=== PATIENT | female | born 1950 | race Two or more races ===

== ENCOUNTER 2022-07-20 09:13 | Inpatient (IN) | payer BC ==
[~2022-07-20] VITALS: Ht 162.6 cm; Wt 79.8 kg
[2022-07-20] VITALS (13 sets, daily range): BP systolic 94–137; BP diastolic 49–66
--- NOTE | 2022-07-20 09:16 | NUR ---
TO ER BED 5, [id number] FROM SNF, FOR NOTED DECREASE LOC AND LOW BP, AAOX1, BREATHING EVEN AND NON LABORED, G TUBE, TRACH CONNECTED TO VENT SETTING AC400, 40% FIO2, PEEP OF 5, CONNECTED TO MONITOR
[2022-07-20] MEDS ORDERED: PIPERACILLIN /TAZOBACTAM 3.375 G in IV D5W 50 ML IV ONE (09:30)
[2022-07-20] MEDS ORDERED: VANCOMYCIN 1 GM in IV D5W 250 ML IV ONE (09:30)
[2022-07-20] MEDS ORDERED: IV NS 0.9% 1,000 ML BAG IV ONE (09:30)
[2022-07-20 09:41] LABS: BASOPHILS % (AUTO) 0.1 % (0.0-2.0); EOSINOPHILS % (AUTO) 0.3 % (0.0-6.0); HEMATOCRIT 24 % (33-45); HEMOGLOBIN 7.6 g/dL (11.5-14.8); LYMPHOCYTES # (AUTO) 1.3 K/uL (0.8-4.8); MEAN CORPUSCULAR HGB CONC 32 g/dl (31.0-36.0); MEAN CORPUSCULAR VOLUME 99 fL (82-100); MONOCYTES # (AUTO) 2.3 K/uL (0.1-1.30); MONOCYTES % (AUTO) 8.4 % (2.0-12.0); NEUTROPHILS # (AUTO) 23.3 K/uL (1.8-8.9); NEUTROPHILS % (AUTO) 86.2 % (43.0-81.0); PLATELET COUNT (AUTO) 225 K/uL (150-450); RED BLOOD CELL COUNT(AUTO) 2.37 MIL/uL (4.0-5.2)
[2022-07-20] MEDS ORDERED: CHLO473M3 MM (09:46)
[2022-07-20] MEDS ORDERED: MAGN400O6 GT (09:46)
[2022-07-20] MEDS ORDERED: NA P133E RC (09:46)
[2022-07-20] MEDS ORDERED: ACET325T53 GT (09:46)
[2022-07-20] MEDS ORDERED: MULT-439 GT (09:46)
[2022-07-20] MEDS ORDERED: ATEN25TA GT (09:46)
[2022-07-20] MEDS ORDERED: ASCO500C17 GT (09:46)
[2022-07-20] MEDS ORDERED: APIX5TAB GT (09:46)
[2022-07-20] MEDS ORDERED: VORI200T4 GT (09:46)
[2022-07-20] MEDS ORDERED: RUXOLITINIB GT (09:46)
[2022-07-20] MEDS ORDERED: ERGOCALCIFEROL GT (09:46)
[2022-07-20] MEDS ORDERED: CHOL200013 GT (09:46)
[2022-07-20] MEDS ORDERED: CLON0.5T4 GT (09:46)
[2022-07-20] MEDS ORDERED: IPRA12.9 IH (09:46)
[2022-07-20] MEDS ORDERED: OMEP20TA5 GT (09:46)
[2022-07-20] MEDS ORDERED: DOCU-141 GT (09:46)
[2022-07-20] MEDS ORDERED: BISA10SU11 RC (09:46)
[2022-07-20] MEDS ORDERED: CRAN3875 GT (09:46)
[2022-07-20] MEDS ORDERED: QUET25TA GT (09:46)
[2022-07-20] MEDS ORDERED: FERR325T23 GT (09:46)
[2022-07-20 09:57] LABS: CALCIUM, SERUM 8.9 mg/dL (8.5-10.1); CARBON DIOXIDE 29 mmol/L (21-32); CHLORIDE 97 mmol/L (98-107); CREATININE 2.2 mg/dL (0.6-1.3); GLUCOSE 187 mg/dL (74-106); POTASSIUM 5.1 mmol/L (3.5-5.1); SODIUM SERUM 134 mmol/L (136-145)
--- NOTE | 2022-07-20 10:01 | NUR ---
COVID SWAB DONE AND SENT TO LAB
[2022-07-20 10:04] LABS: ALANINE AMINOTRANSFERASE 58 U/L (12-78); ALBUMIN 1.8 g/dL (3.4-5.0); ALKALINE PHOSPHATASE 488 U/L (46-116); ASPARTATE AMINOTRANSFERASE 20 U/L (15-37); BILIRUBIN,DIRECT 0.8 mg/dL (0.0-0.2); TOTAL PROTEIN, SERUM 6.9 g/dL (6.4-8.2)
[2022-07-20 10:06] LABS: UREA NITROGEN, BLOOD 100 mg/dL (7-18)
--- NOTE | 2022-07-20 10:37 | NUR ---
JARED SAUCEDO OF [facility] [phone] WILL FIND A BED AND WILL GIVE [facility] A CALL
[2022-07-20 10:55] LABS: BILIRUBIN,URINE SMALL (NEGATIVE); COLOR,URINE YELLOW (YELLOW); LEUKOCYTE ESTERASE ,URINE TRACE (NEGATIVE); NITRITE, URINE NEGATIVE (NEGATIVE); PH,URINE 5.5 (5.0-8.0); PROTEIN,URINE 100 mg/dl (NEGATIVE); UGLUCOSE NEGATIVE (NEGATIVE)
[2022-07-20] MEDS ORDERED: BISACODYL SUPP (10 MG) 10 MG/SUPP.RECT SUPP.RECT RC PRN (11:00)
[2022-07-20] MEDS ORDERED: MAGNESIUM HYDROXIDE 30 ML UDC GT PRN (11:00)
[2022-07-20] MEDS ORDERED: NA PHOS,M-B/NA PHOS,DI-BA 1 EA ENEMA RC PRN (11:00)
[2022-07-20] MEDS ORDERED: RUXOLITINIB PHOSPHATE GT SCH (11:00)
[2022-07-20] MEDS ORDERED: ONDANSETRON HCL/PF 4 MG/2 ML VIAL IVP PRN (11:00)
[2022-07-20] MEDS ORDERED: DEXTROSE 50%-WATER 50 ML DISP.SYRIN IV PRN (11:00)
[2022-07-20] MEDS ORDERED: Z GUARD REMEDY 4 OZ OINT TP PRN (11:00)
[2022-07-20] MEDS ORDERED: MAGNESIUM HYDROXIDE 30 ML UDC PO PRN (11:00)
[2022-07-20 11:17] LABS: BACTERIA,URINE 2+ /HPF (None Seen)
--- NOTE | 2022-07-20 11:17 | NUR ---
AUTHORIZATION GIVEN BY INSURANCE COMPANY FOR PATIENT TO STAY HERE
[2022-07-20] MEDS: BLOOD SUGAR DIAGNOSTIC 1 EACH STRIP IN SCH ×2 (12:00→17:44)
[2022-07-20] MEDS: NOREPINEPHRINE 8 MG in IV NS 0.9% 242 ML IV PRN ×2 (12:30→14:53)
[2022-07-20] MEDS: IV NS 0.9% 1,000 ML IV PRN ×2 (12:40→22:51)
--- NOTE | 2022-07-20 12:46 | NUR ---
ROOM 263
--- NOTE | 2022-07-20 13:13 | NUR ---
REPORT GIVEN TO AMELIA REBOLLEDO FOR COURTNEY
--- NOTE | 2022-07-20 13:40 | NUR ---
TRANSFERRED TO BED 263 IN STABLE CONDITION
[2022-07-20] MEDS: CEFEPIME 2 GM in IV D5W 100 ML IV SCH (14:57)
[2022-07-20] MEDS: CHLORHEXIDINE GLUCONATE 15 ML UDC MM SCH (17:44)
--- NOTE | 2022-07-20 19:15 | NUR ---
GRANULATING MACHINE OPERATOR OPENING NOTE RECEIVED PATIENT IN BED AWAKE, NON VERBAL. ON MECHANICAL VENT, TOLERATING SETTINGS WELL, NO S/S OF RESP DISTRESS, BEDSIDE MONITOR SHOW SR HR IN THE 90'S. IV ACCESS ON RIGHT AND LEFT AC, LAC IN RUNNING NS @75ML/HR. BOTH INTACT AND PATENT, PT HAS MONTEJO CATHETER DRAINING CLEAR YELLOW URINE.SAFETY MEASURE IMPLEMENT BED IN LOW POSITION AND LOCKED,HEAD OF THE BED ELEVATED,BED ALARM IS ON, WILL CONTINUE TO MONITOR.
[2022-07-20] MEDS: ACETAMINOPHEN 650 MG/SUPP.RECT RC PRN (19:59)
[2022-07-20] MEDS ORDERED: VORICONAZOLE 200 MG TABLET GT SCH (21:00)
[2022-07-20] MEDS ORDERED: CEFEPIME 1 GM in IV D5W 50 ML IV SCH (21:00)
[2022-07-20] MEDS: clonazePAM 0.5 MG TABLET GT SCH (21:05)
[2022-07-20] MEDS: QUETIAPINE FUMARATE 25 MG TABLET GT SCH (21:05)
[2022-07-21] VITALS (74 sets, daily range): BP systolic 78–153; BP diastolic 27–85
[2022-07-21] MEDS: BLOOD SUGAR DIAGNOSTIC 1 EACH STRIP IN SCH ×4 (00:05→18:16)
[2022-07-21] MEDS: INSULIN REGULAR, HUMAN 100 UNIT/ML 3 ML VIAL SQ PRN ×4 (00:06→18:30)
--- NOTE | 2022-07-21 04:15 | NUR ---
DIRECTOR OF MUSIC NOTE PATIENT STILL HAS A TEMP AFTER PREVIOUS TYLENOL AND ICE PACKS USED. IMPLEMENTING COOLING BLANKET.
[2022-07-21 04:56] LABS: BASOPHILS % (AUTO) 0.1 % (0.0-2.0); EOSINOPHILS % (AUTO) 0.5 % (0.0-6.0); HEMATOCRIT 24 % (33-45); HEMOGLOBIN 7.7 g/dL (11.5-14.8); LYMPHOCYTES # (AUTO) 2.4 K/uL (0.8-4.8); LYMPHOCYTES % (AUTO) 6.3 % (20.0-44.0); MEAN CORPUSCULAR HGB CONC 32 g/dl (31.0-36.0); MEAN CORPUSCULAR VOLUME 101 fL (82-100); MONOCYTES # (AUTO) 3.2 K/uL (0.1-1.30); MONOCYTES % (AUTO) 8.3 % (2.0-12.0); NEUTROPHILS # (AUTO) 32.3 K/uL (1.8-8.9); NEUTROPHILS % (AUTO) 84.8 % (43.0-81.0); PLATELET COUNT (AUTO) 278 K/uL (150-450); RED BLOOD CELL COUNT(AUTO) 2.37 MIL/uL (4.0-5.2)
[2022-07-21 05:13] LABS: CALCIUM, SERUM 8.5 mg/dL (8.5-10.1); CARBON DIOXIDE 26 mmol/L (21-32); CHLORIDE 104 mmol/L (98-107); CREATININE 1.4 mg/dL (0.6-1.3); GLUCOSE 104 mg/dL (74-106); MAGNESIUM 2.3 mg/dL (1.8-2.4); PHOSPHORUS 1.9 mg/dL (2.5-4.9); POTASSIUM 4.3 mmol/L (3.5-5.1); SODIUM SERUM 138 mmol/L (136-145); UREA NITROGEN, BLOOD 72 mg/dL (7-18)
[2022-07-21 05:14] LABS: WHITE BLOOD COUNT (AUTO) 38.1 K/uL (4.3-11.0)
[2022-07-21 05:46] LABS: THYROID STIMULATING HORMONE 29.246 uIU/mL (0.358-3.74)
[2022-07-21 05:53] LABS: BASOPHILS % (MANUAL) 0 % (0.0-2.0); EOSINOPHILS % (MANUAL) 0 % (0-4); LYMPHOCYTES % (MANUAL) 5 % (16-48); MONOCYTES % (MANUAL) 9 % (0-11.0); NEUTROPHILS % (MANUAL) 86 (42-76)
--- NOTE | 2022-07-21 06:55 | NUR ---
MODERN GREEK STUDIES PROFESSOR CLOSING NOTE PATIENT IN BED ASLEEP, NON VERBAL. ON MECHANICAL VENT, TOLERATING SETTINGS WELL, NO S/S OF RESP DISTRESS, BEDISDE MONITOR SHOW SR HR IN THE 90'S. IV ACCESS ON RIGHT WRIST AND LEFT AC, LAC IN RUNNING LEVOPHED @ 0.1MCG/KG/HR . BP IS 120/68. BOTH INTACT AND PATENT. PATIENT ALSO HAS CAROLE MIDLINE RUNNING NS@75ML/HR. PT HAS MONTEJO CATHETER DRAINING CLEAR YELLOW URINE. PATIENT HAS COOLING BLANKET, CURRENT RECTAL TEMP IS 101.6.SAFETY MEASURE IMPLEMENT BED IN LOW POSITION AND LOCKED,HEAD OF THE BED ELEVATED,BED ALARM IS ON, WILL ENDORSE TO MORNING NURSE.
[2022-07-21] MEDS: HYDROCORTISONE SOD SUCCINATE 100 MG/2 ML VIAL IV SCH ×3 (08:12→20:34)
[2022-07-21] MEDS: clonazePAM 0.5 MG TABLET GT SCH ×2 (08:14→20:34)
[2022-07-21] MEDS: PANTOPRAZOLE 40 MG VIAL IV SCH (08:14)
[2022-07-21] MEDS: DOCUSATE SODIUM 100 MG CAPSULE PO SCH (08:14)
[2022-07-21] MEDS: CHOLECALCIFEROL 1,000 UNIT TABLET (VIT D3) GT SCH (08:15)
[2022-07-21] MEDS: QUETIAPINE FUMARATE 25 MG TABLET GT SCH ×2 (08:15→21:30)
[2022-07-21] MEDS: ASCORBIC ACID 500 MG TABLET GT SCH (08:15)
[2022-07-21] MEDS: CHLORHEXIDINE GLUCONATE 15 ML UDC MM SCH ×2 (08:16→18:17)
[2022-07-21] MEDS: ACETAMINOPHEN 650 MG/SUPP.RECT RC PRN (08:18)
[2022-07-21] MEDS ORDERED: FERROUS SULFATE (325 MG) 325 MG/TAB TABLET GT SCH (09:00)
[2022-07-21] MEDS ORDERED: MULTIVITAMINS,THERAGRAN 1 UDTAB TABLET GT SCH (09:00)
[2022-07-21] MEDS: VANCOMYCIN 1 GM in IV D5W 250 ML IV SCH (09:50)
[2022-07-21] MEDS ORDERED: NEUTRA PHOS 1 POWD.PACKET GT ONE (11:00)
--- NOTE | 2022-07-21 11:10 | NUR ---
DAMARIS SEEN PT AND WAS NOTIFIED OF THE FEVER , NO ORDER NOTED AT THIS TIME.
[2022-07-21] MEDS: JEVITY 1.2 CAL 1,000 ML BOTTLE PEG PRN (11:31)
--- NOTE | 2022-07-21 12:13 | NUR ---
JOLLY RODRÍGUEZ Addendum: 07/21/22 at 1213 by KRISTINA COE RT Amended: Links added.
[2022-07-21] MEDS: IV NS 0.9% 1,000 ML IV PRN (12:38)
[2022-07-21 12:51] LABS: THYROID STIMULATING HORMONE 32.318 uIU/mL (0.358-3.74)
[2022-07-21] MEDS: ENOXAPARIN SODIUM 30 MG/0.3 ML DISP.SYRIN SQ SCH (13:10)
[2022-07-21] MEDS: CEFEPIME 2 GM in IV D5W 100 ML IV SCH (14:08)
[2022-07-21] MEDS: NOREPINEPHRINE 8 MG in IV NS 0.9% 242 ML IV PRN (14:10)
--- NOTE | 2022-07-21 17:05 | NUR ---
PT. NO SIGNIFICANT CHANGES NOTED AT THIS TIME; ALL NEEDS ATTENDED; BEDSIDE REPORT GIVEN TO SAVANA-SHERYL FOR CONTINUITY OF CARE.
--- NOTE | 2022-07-21 19:15 | NUR ---
PEARL TECHNICIAN RCD PT W/DX SEPSIS; PT IS AWAKE ON SUPINE POSITION TURNED OFF LEVOPHED WHICH WAS RUNNING @ 0.06 MCG/KG/MIN THRU PERIPHERAL IV; IV SITE LOOKS RED. MIDLINE FLUSHES NO BLOOD RETURN. REPLACED TRACH GAUZE WHICH HAD DRY BROWN SPUTUM.
--- NOTE | 2022-07-21 19:15 | NUR ---
RN/ICU PT RESTING IN BED NO LONGER HYPERTHERMIC 98.7. VITAL WNL. ON LEVO 0.04 BP KEPT AT ORDERED LEVEL. CHRONIC VENT TRACH, SUCTIONING PERFORMED NO OVER BREATHER OF THE VENTILATOR. NO S/S OF DISTRESS WHEN I LEFT THE ROOM. BED LOCKED HOB ELEVATED TO 20 DEGREES. Addendum: 07/21/22 at 2025 by CARLA DARDEN RN JEVITY @ 40 ML/HR WILL INCREASE TO 55 ML @ 2330 IF PT TOLERATES WELL
[2022-07-22] VITALS (30 sets, daily range): BP systolic 89–139; BP diastolic 56–79
[2022-07-22] MEDS: BLOOD SUGAR DIAGNOSTIC 1 EACH STRIP IN SCH ×5 (00:06→23:44)
[2022-07-22] MEDS: INSULIN REGULAR, HUMAN 100 UNIT/ML 3 ML VIAL SQ PRN ×5 (00:08→23:43)
--- NOTE | 2022-07-22 01:15 | NUR ---
WORKFLOW DEVELOPER STOOL COLLECTED FOR OB AND CALLED LAB FOR SCIENTIST ELECTRONICS.
[2022-07-22] MEDS: IV NS 0.9% 1,000 ML IV PRN ×2 (01:25→17:16)
[2022-07-22 03:08] LABS: OCCULT BLOOD STOOL NEGATIVE (NEGATIVE)
[2022-07-22] MEDS: HYDROCORTISONE SOD SUCCINATE 100 MG/2 ML VIAL IV SCH (04:51)
[2022-07-22 04:57] LABS: BASOPHILS % (AUTO) 0.1 % (0.0-2.0); EOSINOPHILS % (AUTO) 0.1 % (0.0-6.0); HEMATOCRIT 21 % (33-45); LYMPHOCYTES # (AUTO) 1.2 K/uL (0.8-4.8); LYMPHOCYTES % (AUTO) 4.2 % (20.0-44.0); MEAN CORPUSCULAR HGB CONC 31 g/dl (31.0-36.0); MEAN CORPUSCULAR VOLUME 102 fL (82-100); MONOCYTES # (AUTO) 1.5 K/uL (0.1-1.30); MONOCYTES % (AUTO) 5.5 % (2.0-12.0); NEUTROPHILS # (AUTO) 25.2 K/uL (1.8-8.9); NEUTROPHILS % (AUTO) 90.1 % (43.0-81.0); PLATELET COUNT (AUTO) 222 K/uL (150-450); RED BLOOD CELL COUNT(AUTO) 2.03 MIL/uL (4.0-5.2); WHITE BLOOD COUNT (AUTO) 27.9 K/uL (4.3-11.0)
[2022-07-22 05:02] LABS: HEMOGLOBIN 6.4 g/dL (11.5-14.8)
[2022-07-22 05:14] LABS: BAND % (MANUAL) 2 % (0.0-5.0); LYMPHOCYTES % (MANUAL) 7 % (16-48)
[2022-07-22 05:15] LABS: MONOCYTES % (MANUAL) 3 % (0-11.0); NEUTROPHILS % (MANUAL) 88 (42-76)
[2022-07-22 05:26] LABS: BILIRUBIN,TOTAL 0.4 mg/dL (0.2-1.0); CALCIUM, SERUM 7.7 mg/dL (8.5-10.1); CREATININE 0.9 mg/dL (0.6-1.3); MAGNESIUM 2.1 mg/dL (1.8-2.4); PHOSPHORUS 3.2 mg/dL (2.5-4.9); POTASSIUM 3.7 mmol/L (3.5-5.1); TOTAL PROTEIN, SERUM 6.1 g/dL (6.4-8.2)
[2022-07-22 05:31] LABS: ALBUMIN 1.4 g/dL (3.4-5.0)
--- NOTE | 2022-07-22 07:23 | NUR ---
WOUND CARE CONSULT: PT PRESENTS WITH SACRAL DEEP TISSUE INJURY WITH SCARRING, PRESENT ON ADMISSION. RECOMMENDATIONS MADE FOR SKIN PROTECTION.DISCUSSED WITH NURSING STAFF. DR GONZALES TO BE NOTIFIED OF SURGICAL CONSULT REQUEST THIS AM. FIRST ST[facility] IS ON ORDER. IN AGREEMENT WITH PLAN OF CARE. Addendum: 07/22/22 at 0724 by HERI FERNANDEZ WNDNU Amended: Links added.
--- NOTE | 2022-07-22 07:30 | NUR ---
RN NOTES PT FOUND SEMI FOWLERS DISPLAYING NO S/S OF DISTRESS, FLACC = 0 AND BILATERAL RISE AND FALL OF THE CHEST OBSERVED. R UA ML IS PATIENT AND INTACT. PEG DRESSING IS CLEAN AND DRY. MONTEJO CATH RESERVOIR BELOW PATIENT DRAINING BY GRAVITY. PT HAD BM, LOOSE, LIGHT BROWN IN COLOR, PT CLEANED. RN WILL CONTINUE CARE PLAN AND ANTICIPATE NEEDS. SAFETY MEASURES IN PLACE, BED LOCKED AND IN LOWEST POSITION, SIDE RAILS UPX2, CALL LIGHT WITHIN REACH, BED LOCKED AND IN LOWEST POSITION, SIDE RAILS UPX3, CALL LIGHT WITHIN REACH, BED ALARM ARMED.
[2022-07-22] MEDS: DOCUSATE SODIUM 100 MG CAPSULE PO SCH (08:47)
[2022-07-22] MEDS: ENOXAPARIN SODIUM 30 MG/0.3 ML DISP.SYRIN SQ SCH (09:00)
--- NOTE | 2022-07-22 09:00 | NUR ---
NURSES NOTES LOVENOX AND COLACE NOT GIVEN. LOVENOX NOT GIVEN BECAUSE PT HBG IS 6.4. COLACE NOT GIVEN BECAUSE PT HAS ACTIVE DIARRHEA.
[2022-07-22] MEDS: MULTIVITAMINS,THERAGRAN 1 UDTAB TABLET GT SCH (09:09)
[2022-07-22] MEDS: clonazePAM 0.5 MG TABLET GT SCH ×2 (09:09→20:24)
[2022-07-22] MEDS: PANTOPRAZOLE 40 MG VIAL IV SCH (09:09)
[2022-07-22] MEDS: ASCORBIC ACID 500 MG TABLET GT SCH (09:09)
[2022-07-22] MEDS: CHOLECALCIFEROL 1,000 UNIT TABLET (VIT D3) GT SCH (09:09)
[2022-07-22] MEDS: CHLORHEXIDINE GLUCONATE 15 ML UDC MM SCH ×2 (09:09→17:03)
[2022-07-22] MEDS: QUETIAPINE FUMARATE 25 MG TABLET GT SCH ×2 (09:09→20:23)
[2022-07-22] MEDS: VANCOMYCIN 1 GM in IV D5W 250 ML IV SCH (10:08)
[2022-07-22] MEDS: CEFEPIME 2 GM in IV D5W 100 ML IV SCH ×2 (11:22→20:23)
[2022-07-22] MEDS: JEVITY 1.2 CAL 1,000 ML BOTTLE PEG PRN (13:50)
[2022-07-22] MEDS: LEVOTHYROXINE SODIUM 75 MCG TABLET GT SCH (13:53)
[2022-07-22] MEDS ORDERED: SOD FERRIC GLUC 125 MG in IV NS 0.9% 100 ML IV SCH (14:00)
--- NOTE | 2022-07-22 17:50 | NUR ---
PATIENT TRANSFER PT DOWNGRADED TO TELE, RN GAVE REPORT TO NURSE FOLLOWING PATIENT TO KATY/TELE UNIT, SHERYL GAVIN. CN AND RT ACCOMPANIED PT DOWNSTAIRS. BELONGINGS REVIEWED AND CHECKED. RX AND CHART TRANSPORTED W/ PATIENT. PT ENDORSED IN STABLE CONDITION FOR COURTNEY.
--- NOTE | 2022-07-22 17:51 | NUR ---
RN NOTE TRANSFER PT IS STABLE AT THIS TIME AND HAS BEEN DOWNGRADED TO KATY/TELE #[id number]. REPORT RECEIVED FROM SHERYL RIOJAS. PT TRANSFERRED WITH ALL BELONGINGS AND MEDICATIONS. WILL CONTINUE TO MONITOR THIS SHIFT.
--- NOTE | 2022-07-22 18:55 | NUR ---
RN CLOSING NOTE PT IS IN BED ON MECHANICAL VENTILATOR WITH ALL PRESCRIBED SETTINGS TOLERATING WELL O2 SAT 99%. PT IS A/OX2 [place] SPEAKING ONLY. GTUBE IS IN PLACE WITH POSITIVE PLACEMENT INFUSING WITH JEVITY 1.2 @55ML/HR. FC IS IN PLACE DRAINING URINE TO GRAVITY PT ALSO HAS FLEXISEAL IN PLACE. IV ACCESS R UA MIDLINE MIDLINE INFUSING WITH NS @75ML/HR. BED IS LOCKED IN LOWEST POSITION X2 BED RAILS UP AND ALL HOSPITAL SAFETY MEASURES ARE IN PLACE. WILL ENDORSE TO HEALTH PLAN ADVISOR NURSE FOR COURTNEY.
--- NOTE | 2022-07-22 19:40 | NUR ---
RN OPENING NOTES RECEIVED CARE OF PATIENT FROM AM NURSE, PATIENT IS AWAKE, NONVERBAL, RESPONDS TO NAME WITH FACIAL AND HAND GESTURES, RWANDAN SPEAKING. NO PAIN OR DISCOMFORT EXPRESSED USING FLACC SCALE. PATIENT IS NOTED WITH TRACH, ON MECHANICAL VENTILATION WITH ORDERED SETTINGS, NO SOB NOTED, NO RESPIRATORY DISTRESS NOTED. PATIENT IS NOTED WITH GTUBE, RUNNING WITH JEVITY 1.2 @55 ML/HR, NO RESIDUAL NOTED. PATIENT NOTED WITH MONTEJO CATH, DRAINING YELLOW URINE TO GRAVITY, RECTAL RUBE FLEXISEAL IN PLACE. IV ACCESS R UA MIDLINE MIDLINE INFUSING WITH NS @75ML/HR. SAFETY MEASURES IMPLEMENTED PER HOSPITAL PROTOCOLS, BED IS LOCKED IN LOWEST POSITION, X2 BED RAILS UP. WILL CONTINUE TO MONITOR PATIENT AND CARRY OUT PLAN OF CARE.
[2022-07-22] MEDS: MUPIROCIN OINT 2% 22 GM TUBE NS SCH (20:23)
[2022-07-23] VITALS (7 sets, daily range): BP systolic 120–176; BP diastolic 72–112
[2022-07-23] MEDS: BLOOD SUGAR DIAGNOSTIC 1 EACH STRIP IN SCH ×3 (06:31→17:29)
[2022-07-23] MEDS: INSULIN REGULAR, HUMAN 100 UNIT/ML 3 ML VIAL SQ PRN ×3 (06:32→17:30)
[2022-07-23] MEDS: IV NS 0.9% 1,000 ML IV PRN ×2 (07:01→18:01)
--- NOTE | 2022-07-23 07:25 | NUR ---
RN OPENING NOTES PATIENT IS AWAKE, NONVERBAL, RESPONDS TO NAME WITH FACIAL AND HAND GESTURES. NO PAIN OR DISCOMFORT EXPRESSED USING FLACC SCALE. PATIENT IS NOTED WITH TRACH, ON MECHANICAL VENTILATION WITH ORDERED SETTINGS, NO SOB NOTED, NO RESPIRATORY DISTRESS NOTED. PATIENT IS NOTED WITH GTUBE, RUNNING WITH JEVITY 1.2 @55 ML/HR. PATIENT NOTED WITH MONTEJO CATH, DRAINING YELLOW URINE TO GRAVITY, RECTAL RUBE FLEXISEAL IN PLACE. IV ACCESS R UA MIDLINE MIDLINE INFUSING WITH NS @75ML/HR. SAFETY MEASURES IMPLEMENTED PER HOSPITAL PROTOCOLS, BED IS LOCKED IN LOWEST POSITION, X2 BED RAILS UP.
--- NOTE | 2022-07-23 07:25 | NUR ---
RN CLOSING NOTES ENDORSED CARE OF PATIENT TO AM NURSE. NO SIGNIFICANT FINDINGS OR CHANGES TO PATIENT'S CONDITION THROUGHOUT SHIFT. ALL DUE MEDS GIVEN, PLAN OF CARE FOLLOWED. SAFETY MEASURES KEPT IN PLACE PER HOSPITAL PROTOCOLS. ENDORSED CARE OF PATIENT TO AM NURSE FOR COURTNEY.
[2022-07-23 07:32] LABS: CALCIUM, SERUM 8.2 mg/dL (8.5-10.1); CREATININE 0.8 mg/dL (0.6-1.3)
[2022-07-23 08:49] LABS: BASOPHILS # (AUTO) 0.1 K/uL (0.0-0.2); BASOPHILS % (AUTO) 0.3 % (0.0-2.0); EOSINOPHILS % (AUTO) 0.3 % (0.0-6.0); HEMATOCRIT 29 % (33-45); HEMOGLOBIN 9.1 g/dL (11.5-14.8); LYMPHOCYTES # (AUTO) 1.8 K/uL (0.8-4.8); LYMPHOCYTES % (AUTO) 5.8 % (20.0-44.0); MEAN CORPUSCULAR HGB CONC 31 g/dl (31.0-36.0); MEAN CORPUSCULAR VOLUME 100 fL (82-100); MONOCYTES # (AUTO) 1.4 K/uL (0.1-1.30); MONOCYTES % (AUTO) 4.5 % (2.0-12.0); NEUTROPHILS # (AUTO) 28.2 K/uL (1.8-8.9); NEUTROPHILS % (AUTO) 89.1 % (43.0-81.0); PLATELET COUNT (AUTO) 344 K/uL (150-450); RED BLOOD CELL COUNT(AUTO) 2.93 MIL/uL (4.0-5.2)
[2022-07-23 09:05] LABS: WHITE BLOOD COUNT (AUTO) 31.6 K/uL (4.3-11.0)
[2022-07-23] MEDS: PANTOPRAZOLE 40 MG/PACK PACK GT SCH (09:18)
[2022-07-23] MEDS: CHLORHEXIDINE GLUCONATE 15 ML UDC MM SCH ×2 (09:18→17:29)
[2022-07-23] MEDS: CEFEPIME 2 GM in IV D5W 100 ML IV SCH ×2 (09:18→20:15)
[2022-07-23] MEDS: LEVOTHYROXINE SODIUM 75 MCG TABLET GT SCH (09:18)
[2022-07-23] MEDS: MUPIROCIN OINT 2% 22 GM TUBE NS SCH ×2 (09:19→21:05)
[2022-07-23] MEDS: ASCORBIC ACID 500 MG TABLET GT SCH (09:19)
[2022-07-23] MEDS: DOCUSATE SODIUM 100 MG CAPSULE PO SCH (09:19)
[2022-07-23] MEDS: MULTIVITAMINS,THERAGRAN 1 UDTAB TABLET GT SCH (09:19)
[2022-07-23] MEDS: CHOLECALCIFEROL 1,000 UNIT TABLET (VIT D3) GT SCH (09:19)
[2022-07-23] MEDS: clonazePAM 0.5 MG TABLET GT SCH ×2 (09:19→20:08)
[2022-07-23] MEDS: QUETIAPINE FUMARATE 25 MG TABLET GT SCH ×2 (09:19→20:08)
[2022-07-23] MEDS: VANCOMYCIN 1 GM in IV D5W 250 ML IV SCH (10:56)
[2022-07-23] MEDS ORDERED: POTASSIUM CHLORIDE 20 MEQ POWDER PACKET GT SCH (11:00)
[2022-07-23 15:04] LABS: BAND % (MANUAL) 2 % (0.0-5.0); BASOPHILS % (MANUAL) 0 % (0.0-2.0); EOSINOPHILS % (MANUAL) 0 % (0-4); LYMPHOCYTES % (MANUAL) 7 % (16-48); MONOCYTES % (MANUAL) 5 % (0-11.0); NEUTROPHILS % (MANUAL) 86 (42-76)
[2022-07-23] MEDS: JEVITY 1.2 CAL 1,000 ML BOTTLE PEG PRN (15:51)
[2022-07-23] MEDS: MORPHINE SULFATE INJ 2 MG/ML DISP.SYRIN IV PRN ×2 (17:09→23:57)
[2022-07-23] MEDS: LORAZEPAM INJ 2 MG/ML VIAL IV PRN (17:14)
[2022-07-23] MEDS: SOD FERRIC GLUC 125 MG in IV NS 0.9% 100 ML IV SCH (17:23)
--- NOTE | 2022-07-23 18:54 | NUR ---
RN CLOSING NOTE PT IS IN BED ON MECHANICAL VENTILATOR WITH ALL PRESCRIBED SETTINGS TOLERATING WELL O2 SAT 100%. PT IS A/OX2 [place] SPEAKING ONLY. GTUBE IS IN PLACE WITH POSITIVE PLACEMENT INFUSING WITH JEVITY 1.2 @55ML/HR. FC IS IN PLACE DRAINING URINE TO GRAVITY PT ALSO HAS FLEXISEAL IN PLACE. IV ACCESS R UA MIDLINE MIDLINE INFUSING WITH NS @75ML/HR. BED IS LOCKED IN LOWEST POSITION X2 BED RAILS UP AND ALL HOSPITAL SAFETY MEASURES ARE IN PLACE. WILL ENDORSE TO [place]S CLERK NURSE FOR COURTNEY.
--- NOTE | 2022-07-23 19:30 | NUR ---
RN OPENING NOTE RECEIVED PT FOR COURTNEY. PT IN BED, ASLEEP, FAMILY ON BEDSIDE. CURRENTLY ON MECHANICAL VENTILATOR WITH ALL PRESCRIBED SETTINGS, TOLERATING WELL, O2 SAT 95%. PT IS A/OX1, NON-VERBAL BUT UNDERSTANDS IRISH ONLY. IV ACCESS NOTED IN CAROLE MIDLINE INFUSING NS @ 75 ML/HR, PATENT AND INTACT, FLUSHES WELL. GTUBE IN PLACE WITH POSITIVE PLACEMENT INFUSING JEVITY 1.2 @ 55 ML/HR. FC IS IN PLACE DRAINING URINE BY GRAVITY. ALL HOSPITAL SAFETY MEASURES ARE IN PLACE: BED LOCKED IN LOW POSITION, CALL LIGHT WITHIN REACH. WILL CONTINUE TO MONITOR PT CLOSELY.
--- NOTE | 2022-07-23 19:35 | NUR ---
RN NOTE PATIENT NOTED TO HAVE SMALL BM FLEXISEAL REMOVED.
[2022-07-23] MEDS: ACETAMINOPHEN 325 MG TABLET PO PRN (19:51)
--- NOTE | 2022-07-23 19:56 | NUR ---
RN NOTE PT HAS AN ELEVATED TEMPERATURE. GAVE TYLENOL PRN ORDERED. WILL REASSESS PT IN 30 MINUTES.
[2022-07-23 20:49] LABS: ABG BASE EXCESS -6.9 mmol/L; ABG OXYGEN SATURATION 92.6 % (92.0-98.5); ABG PCO2 23.3 mmHg (35.0-45.0); ABG PH 7.438 (7.350-7.450); ABG PO2 67.9 mmHg (75.0-100.0); AaDO2 118.6 mmHg; MetHb 0.2 % (0.0-1.5); O2Hb 92.4 % (94.0-97.0); PEEP,BG 5 cm H2O; SITE, ABG Left Radial; VENT MODE, BG AC 18/48 400 30% +5; VT, ABG 400 mL
--- NOTE | 2022-07-23 20:50 | NUR ---
RN NOTE BROTH SETTER CALLED DUE TO PT'S UNSTABLE VITAL SIGNS: BP 176/112 TEMP 103 HR 145 RR 55 O2 SAT 95% CATERING OPERATIONS MANAGER YASMEEN FONTENOT MADE AWARE. PT GIVEN TYLENOL ORDERED, BODY COOLING MEASURES DONE, STAT ABG AND CXR DONE. WILL CONTINUE TO MONITOR PT CLOSELY.
--- NOTE | 2022-07-23 21:55 | NUR ---
RN NOTE PT IS MORE STABLE NOW. BP:119/77 TEMP: 100.1 HR: 122 02 SAT: 96% DID ANOTHER ROUND OF COLD BATH TO LOWER TEMP MORE. PT SLEEPING AND CALM. WILL CONTINUE TO MONITOR PT CLOSELY.
[2022-07-24] VITALS: BP 112/79
--- NOTE | 2022-07-24 | NUR ---
RN NOTE PT HR IS STILL HIGH IN THE 120S AND RR ABOVE NORMAL RANGE. THE REST OF VS STABLE NOW. GAVE MORPHINE PRN ORDERED. WILL REASSESS PT IN 30 MINUTES.
--- NOTE | 2022-07-24 00:10 | NUR ---
RN NOTE PT IS MORE STABLE WITH THE FOLLOWING VS: BP 112/79 TEMP 98.0 HR 119 RR 33 O2 SAT: 95% PT IS SLEEPING WITH NO S/SX OF ACUTE DISTRESS. WILL CONTINUE TO MONITOR FOR ANY CHANGES.
[2022-07-24] MEDS: BLOOD SUGAR DIAGNOSTIC 1 EACH STRIP IN SCH ×5 (00:14→23:22)
[2022-07-24] MEDS: INSULIN REGULAR, HUMAN 100 UNIT/ML 3 ML VIAL SQ PRN ×5 (00:18→23:23)
[2022-07-24 04:00] VITALS: BP 123/80
--- NOTE | 2022-07-24 06:10 | NUR ---
RN CLOSING NOTE PT REMAINS TACHYCARDIC AND TACHYPNEIC WITH HR IN THE 110-120s. ALL OTHER VS STABLE. NO PHARMACOLOGICAL INTERVENTION NEEDED. TELE MONITOR SHOWS ST. O2 SAT >95%. ALL DUE MEDS GIVEN. AM/PM CARE DONE. TURNED AND REPOSITIONED. ALL SAFETY MEASURES IN PLACE. CALL LIGHT WITHIN REACH. WILL ENDORSE TO AM SHIFT NURSE FOR COURTNEY.
[2022-07-24] MEDS: IV NS 0.9% 1,000 ML IV PRN (06:42)
[2022-07-24 07:08] LABS: BASOPHILS # (AUTO) 0.1 K/uL (0.0-0.2); BASOPHILS % (AUTO) 0.2 % (0.0-2.0); EOSINOPHILS % (AUTO) 0.4 % (0.0-6.0); HEMATOCRIT 35 % (33-45); HEMOGLOBIN 10.8 g/dL (11.5-14.8); LYMPHOCYTES % (AUTO) 4.1 % (20.0-44.0); MEAN CORPUSCULAR HGB CONC 31 g/dl (31.0-36.0); MEAN CORPUSCULAR VOLUME 101 fL (82-100); MONOCYTES # (AUTO) 2.8 K/uL (0.1-1.30); MONOCYTES % (AUTO) 5.7 % (2.0-12.0); NEUTROPHILS # (AUTO) 43.6 K/uL (1.8-8.9); NEUTROPHILS % (AUTO) 89.6 % (43.0-81.0); PLATELET COUNT (AUTO) 451 K/uL (150-450); RED BLOOD CELL COUNT(AUTO) 3.52 MIL/uL (4.0-5.2)
--- NOTE | 2022-07-24 07:30 | NUR ---
RN OPENING NOTE PATIENT IS IN BED ON SEMI-SOFIA'S POSITION, ASLEEP BUT EASILY AROUSABLE, NON VERBAL. TRACHEOSTOMY TO MECHANICAL VENTILATOR INTACT, FOLLOWING THE PRESCRIBED SETTINGS:AC MODE, RR 18, TV 400, FIO2 40% PEEP 0 O2 SAT 96%. SINUS TACHYCARDIA ON CAFE WORKER. TACHYPNEIC AT 35 BREATHS PER MINUTE. MONTEJO CATHETER INTACT DRAINING TO A CLEAR YELLOW URINE. GT TUBE INTACT INFUSING WITH JEVITY 1.2 AT 55 CC/HR. RIGHT UPPER ARM PICC LINE INFUSING WITH NS AT 75 CC/HR. ALL HOSPITAL SAFETY PRECAUTIONS IN PLACE. BED IS LOCKED IN LOWEST POSITION, 3 SIDE RAILS UP, CALL LIGHT WITHIN REACH. WILL CONTINUE TO MONITOR THROUGHOUT SHIFT.
[2022-07-24 07:32] LABS: WHITE BLOOD COUNT (AUTO) 48.6 K/uL (4.3-11.0)
[2022-07-24 07:40] LABS: CALCIUM, SERUM 8.1 mg/dL (8.5-10.1); POTASSIUM 4.5 mmol/L (3.5-5.1)
[2022-07-24 08:00] VITALS: BP 141/84
[2022-07-24] MEDS: CEFEPIME 2 GM in IV D5W 100 ML IV SCH (08:19)
[2022-07-24] MEDS: MULTIVITAMINS,THERAGRAN 1 UDTAB TABLET GT SCH (08:20)
[2022-07-24] MEDS: DOCUSATE SODIUM 100 MG CAPSULE PO SCH (08:20)
[2022-07-24] MEDS: CHLORHEXIDINE GLUCONATE 15 ML UDC MM SCH ×2 (08:20→17:58)
[2022-07-24] MEDS: clonazePAM 0.5 MG TABLET GT SCH ×2 (08:20→20:24)
[2022-07-24] MEDS: PANTOPRAZOLE 40 MG/PACK PACK GT SCH (08:20)
[2022-07-24] MEDS: CHOLECALCIFEROL 1,000 UNIT TABLET (VIT D3) GT SCH (08:20)
[2022-07-24] MEDS: ASCORBIC ACID 500 MG TABLET GT SCH (08:20)
[2022-07-24] MEDS: QUETIAPINE FUMARATE 25 MG TABLET GT SCH ×2 (08:20→20:24)
[2022-07-24] MEDS: ACETAMINOPHEN 325 MG TABLET PO PRN ×2 (08:20→13:04)
[2022-07-24] MEDS: LEVOTHYROXINE SODIUM 75 MCG TABLET GT SCH (08:21)
[2022-07-24] MEDS: ENOXAPARIN SODIUM 40 MG/0.4 ML DISP.SYRIN SQ SCH (08:31)
[2022-07-24] MEDS: MUPIROCIN OINT 2% 22 GM TUBE NS SCH ×2 (08:49→20:24)
[2022-07-24] MEDS: VANCOMYCIN 1 GM in IV D5W 250 ML IV SCH (10:40)
--- NOTE | 2022-07-24 10:52 | NUR ---
received a call from RT THEY SHOWED ABG RESULT PER DR. RODRÍGUEZ NO CHANGE,REQUESTED RT TO PLACE RSULT ON SYSTEM.
--- NOTE | 2022-07-24 11:00 | NUR ---
RN NOTE PATIENT FEBRILE AT 100F. HR 128 BPM. COOLING MEASURES DONE.
[2022-07-24] MEDS: JEVITY 1.2 CAL 1,000 ML BOTTLE PEG PRN (11:08)
[2022-07-24 11:27] LABS: ABG BASE EXCESS -7.5 mmol/L; ABG OXYGEN SATURATION 95.3 % (92.0-98.5); ABG PCO2 27.4 mmHg (35.0-45.0); ABG PH 7.388 (7.350-7.450); ABG PO2 79.9 mmHg (75.0-100.0); AaDO2 101.8 mmHg; COHb 0.1 % (0.5-1.5); MetHb 0.3 % (0.0-1.5); O2Hb 94.9 % (94.0-97.0); SITE, ABG Left Radial; VENT MODE, BG AC 18 400 30% +5
[2022-07-24 11:38] LABS: BAND % (MANUAL) 2 % (0.0-5.0); BASOPHILS % (MANUAL) 0 % (0.0-2.0); EOSINOPHILS % (MANUAL) 0 % (0-4); LYMPHOCYTES % (MANUAL) 6 % (16-48); MONOCYTES % (MANUAL) 5 % (0-11.0); NEUTROPHILS % (MANUAL) 87 (42-76)
[2022-07-24 12:00] VITALS: BP 134/82
[2022-07-24] MEDS ORDERED: SULFAMETHOXAZOLE/TRIMETHOPRIM 20 ML in IV D5W 500 ML IV SCH (13:00)
[2022-07-24] MEDS: SULFAMETHOXAZOLE/TRIMETHOPRIM 20 ML in IV D5W 500 ML IV SCH ×2 (13:25→21:15)
[2022-07-24] MEDS: SOD FERRIC GLUC 125 MG in IV NS 0.9% 100 ML IV SCH (15:49)
[2022-07-24 16:00] VITALS: BP 120/71
--- NOTE | 2022-07-24 16:38 | NUR ---
RN NOTE PATIENT REMAINS STABLE OF THIS TIME. HEART RATE IS NOW AT 108 BPM, RR 31, O2 SATURATION AT 99%, AFEBRILE AT 98.7F. WILL CONTINUE TO MONITOR..
--- NOTE | 2022-07-24 18:44 | NUR ---
RN CLOSING NOTE PATIENT REMAINED STABLE THROUGHOUT SHIFT. TOLERATES MECHANICAL VENTILATOR SETTINGS. RESPIRATORY RATE IS NOW AT 31 BPM, O2 SATURATION AT 98%. HR AT 110 BPM. MONTEJO CATHETER INTACT. ALL IV LINES INTACT AND PATENT. G-TUBE INTACT AND PATENT. ALL HOSPITAL PRECAUTIONS IN PLACE. WILL ENDORSE TO GAMBRELER NURSE.
--- NOTE | 2022-07-24 19:30 | NUR ---
RN OPENING NOTE RECEIVED PT FROM CHRIS FOR COURTNEY. PATIENT IN BED ON SEMI-SOFIA'S POSITION, ASLEEP BUT EASILY AROUSABLE, NON VERBAL. TRACHEOSTOMY TO MECHANICAL VENTILATOR INTACT, FOLLOWING THE PRESCRIBED SETTINGS: AC MODE, RR 18, TV 400, FIO2 40% PEEP 5, PT TOLERATING WELL. O2 SAT 97%. SINUS TACHYCARDIA ON TELE MONITOR. NO S/SX OF ACUTE RESPI DISTRESS NOTED AT THIS TIME. IV ACCESS NOTED ON RIGHT UPPER ARM ML, PATENT AND INTACT, INFUSING NS AT 75 CC/HR. GTUBE IN PLACE, INFUSING JEVITY 1.2 AT 55 CC/HR. NO RESIDUAL NOTED. MONTEJO CATHETER INTACT, DRAINING TO A CLEAR YELLOW URINE. ALL HOSPITAL SAFETY PRECAUTIONS IN PLACE: BED IS LOCKED IN LOWEST POSITION, 3 SIDE RAILS UP, CALL LIGHT WITHIN REACH. WILL CONTINUE TO MONITOR THROUGHOUT SHIFT.
[2022-07-24 20:00] VITALS: BP 114/82
[2022-07-25] VITALS: BP 119/71
[2022-07-25] MEDS: IV NS 0.9% 1,000 ML IV PRN ×2 (02:49→13:30)
[2022-07-25 04:00] VITALS: BP 130/66
[2022-07-25] MEDS: SULFAMETHOXAZOLE/TRIMETHOPRIM 20 ML in IV D5W 500 ML IV SCH ×3 (04:14→22:00)
[2022-07-25] MEDS: BLOOD SUGAR DIAGNOSTIC 1 EACH STRIP IN SCH ×3 (05:25→18:02)
[2022-07-25] MEDS: INSULIN REGULAR, HUMAN 100 UNIT/ML 3 ML VIAL SQ PRN ×2 (05:27→18:03)
--- NOTE | 2022-07-25 05:56 | NUR ---
RN CLOSING NOTE PT REMAINED STABLE THROUGHOUT THE NIGHT. ON TELE MONITOR SHOWING ST, O2 SAT AT >97%. PT IS AFEBRILE. NO S/SX OF ACUTE DISTRESS NOTED. ALL DUE MEDS GIVEN. AM/PM CARE DONE. TURNED AND REPOSITIONED. SAFETY MEASURES REINFORCED. HOB ELEVATED AT ALL TIMES. WILL ENDORSE TO AM SHIFT NURSE FOR COURTNEY.
[2022-07-25 06:43] LABS: BASOPHILS # (AUTO) 0.1 K/uL (0.0-0.2); BASOPHILS % (AUTO) 0.2 % (0.0-2.0); EOSINOPHILS % (AUTO) 0.4 % (0.0-6.0); HEMATOCRIT 30 % (33-45); HEMOGLOBIN 9.2 g/dL (11.5-14.8); LYMPHOCYTES # (AUTO) 2.5 K/uL (0.8-4.8); LYMPHOCYTES % (AUTO) 5.3 % (20.0-44.0); MEAN CORPUSCULAR HGB CONC 30 g/dl (31.0-36.0); MEAN CORPUSCULAR VOLUME 103 fL (82-100); MONOCYTES # (AUTO) 3.8 K/uL (0.1-1.30); MONOCYTES % (AUTO) 8.2 % (2.0-12.0); NEUTROPHILS # (AUTO) 40.2 K/uL (1.8-8.9); NEUTROPHILS % (AUTO) 85.9 % (43.0-81.0); PLATELET COUNT (AUTO) 341 K/uL (150-450); RED BLOOD CELL COUNT(AUTO) 2.96 MIL/uL (4.0-5.2)
[2022-07-25 06:48] LABS: WHITE BLOOD COUNT (AUTO) 46.7 K/uL (4.3-11.0)
--- NOTE | 2022-07-25 06:48 | NUR ---
RN NOTE RECEIVED LAB REPORT FOR PT'S WBC: 46.7 WILL ENDORSE TO AM SHIFT NURSE.
[2022-07-25 07:07] LABS: CALCIUM, SERUM 7.8 mg/dL (8.5-10.1); POTASSIUM 4.7 mmol/L (3.5-5.1)
[2022-07-25 08:00] VITALS: BP 130/75
--- NOTE | 2022-07-25 08:02 | NUR ---
HEAD REFRIGERATING ENGINEER OPENING NOTE Patient in bed, asleep. Non-verbal, on mechanical ventilator tolerating current settings well. IV access on CAROLE midline infusing NS at 125 ml/hr. On tele monitoring showing sinus tachycardia, HR on the 100's. Herrera catheter in place draining to a yellow colored urine. G-tube in place running Jevity 1.2 at 55 cc/hr. Safety precautions in place: bed in low, locked position; siderails up x 2; call light within reach. Will continue to monitor.
[2022-07-25] MEDS: ASCORBIC ACID 500 MG TABLET GT SCH (09:28)
[2022-07-25] MEDS: CHOLECALCIFEROL 1,000 UNIT TABLET (VIT D3) GT SCH (09:29)
[2022-07-25] MEDS: CHLORHEXIDINE GLUCONATE 15 ML UDC MM SCH ×2 (09:29→16:22)
[2022-07-25] MEDS: QUETIAPINE FUMARATE 25 MG TABLET GT SCH ×2 (09:29→21:57)
[2022-07-25] MEDS: PANTOPRAZOLE 40 MG/PACK PACK GT SCH (09:29)
[2022-07-25] MEDS: DOCUSATE SODIUM 100 MG CAPSULE PO SCH (09:29)
[2022-07-25] MEDS: MULTIVITAMINS,THERAGRAN 1 UDTAB TABLET GT SCH (09:29)
[2022-07-25] MEDS: LEVOTHYROXINE SODIUM 75 MCG TABLET GT SCH (09:29)
[2022-07-25] MEDS: clonazePAM 0.5 MG TABLET GT SCH ×2 (09:30→21:58)
--- NOTE | 2022-07-25 09:30 | NUR ---
RN NOTE Received critical level from Fam from lab, procalcitonin is 3.64. Dr. Sarkar notified, awaiting orders.
[2022-07-25] MEDS: MUPIROCIN OINT 2% 22 GM TUBE NS SCH ×2 (09:31→22:00)
[2022-07-25] MEDS: ENOXAPARIN SODIUM 40 MG/0.4 ML DISP.SYRIN SQ SCH (09:32)
[2022-07-25] MEDS: JEVITY 1.2 CAL 1,000 ML BOTTLE PEG PRN (09:41)
[2022-07-25 09:47] LABS: BAND % (MANUAL) 4 % (0.0-5.0); BASOPHILS % (MANUAL) 0 % (0.0-2.0); EOSINOPHILS % (MANUAL) 1 % (0-4); LYMPHOCYTES % (MANUAL) 8 % (16-48); MONOCYTES % (MANUAL) 10 % (0-11.0); NEUTROPHILS % (MANUAL) 77 (42-76)
[2022-07-25] MEDS ORDERED: MEROPENEM 1 G in IV NS 0.9% 100 ML IV SCH (10:00)
[2022-07-25 12:00] VITALS: BP 111/72
[2022-07-25 16:00] VITALS: BP 129/81
[2022-07-25] MEDS: HYDROXYUREA 500 MG CAPSULE PO SCH (16:21)
--- NOTE | 2022-07-25 17:51 | NUR ---
RN NOTE Verified with pharmacy about the Lovenox to dose scheduled for 1700. Clicked non-admin per pharmacy.
--- NOTE | 2022-07-25 19:20 | NUR ---
RN OPENING NOTE RECEIVED PT FROM MORNING RN. PATIENT IN BED ON SEMI-SOFIA'S POSITION, ASLEEP BUT EASILY AROUSABLE, NON VERBAL. TRACHEOSTOMY TO MECHANICAL VENTILATOR INTACT, FOLLOWING THE PRESCRIBED SETTINGS: AC MODE, RR 18, TV 400, FIO2 40% PEEP 5, PT TOLERATING WELL. O2 SAT 97%. SINUS TACHYCARDIA ON TELE MONITOR. NO S/SX OF ACUTE RESPI DISTRESS NOTED AT THIS TIME. IV ACCESS NOTED ON RIGHT UPPER ARM ML, PATENT AND INTACT, INFUSING NS AT 75 CC/HR. GTUBE IN PLACE, INFUSING JEVITY 1.2 AT 55 CC/HR. NO RESIDUAL NOTED. MONTEJO CATHETER INTACT, DRAINING TO A CLEAR YELLOW URINE. ALL HOSPITAL SAFETY PRECAUTIONS IN PLACE: BED IS LOCKED IN LOWEST POSITION, 3 SIDE RAILS UP, CALL LIGHT WITHIN REACH. WILL CONTINUE TO MONITOR THROUGHOUT SHIFT.
--- NOTE | 2022-07-25 19:27 | NUR ---
X RAY PHYSICIAN CLOSING NOTE Patient in bed, asleep. Non-verbal, on mechanical ventilator tolerating current settings well. IV access on CAROLE midline infusing NS at 125 ml/hr. On tele monitoring showing sinus tachycardia, HR on the 100's. Herrera catheter in place draining to a yellow colored urine with an output of 500 cc. G-tube in place running Jevity 1.2 at 55 cc/hr. Turned and repositioned, as tolerated. Safety precautions in place: bed in low, locked position; siderails up x 2; call light within reach. Will endorse to mine shifter nurse for COURTNEY.
[2022-07-25 20:00] VITALS: BP 130/83
[2022-07-25] MEDS: ENOXAPARIN SODIUM 60 MG/0.6 ML DISP.SYRIN SQ SCH (21:58)
[2022-07-25] MEDS: VORICONAZOLE 200 MG TABLET PO SCH (21:58)
[2022-07-26] VITALS: BP_SYST 118; BP_SYST 119; BP_DIAS 64; BP_DIAS 78
[2022-07-26] MEDS: INSULIN REGULAR, HUMAN 100 UNIT/ML 3 ML VIAL SQ PRN ×4 (01:21→18:22)
[2022-07-26] MEDS: BLOOD SUGAR DIAGNOSTIC 1 EACH STRIP IN SCH ×4 (01:21→18:15)
[2022-07-26] MEDS: LORAZEPAM INJ 2 MG/ML VIAL IV PRN (01:28)
[2022-07-26] MEDS: IV NS 0.9% 1,000 ML IV PRN ×2 (03:17→13:34)
[2022-07-26] MEDS: JEVITY 1.2 CAL 1,000 ML BOTTLE PEG PRN (03:18)
[2022-07-26 04:00] VITALS: BP 110/71
[2022-07-26] MEDS: ACETAMINOPHEN 325 MG TABLET PO PRN (05:34)
[2022-07-26] MEDS: SULFAMETHOXAZOLE/TRIMETHOPRIM 20 ML in IV D5W 500 ML IV SCH ×3 (05:35→21:35)
[2022-07-26 06:37] LABS: BASOPHILS # (AUTO) 0.1 K/uL (0.0-0.2); BASOPHILS % (AUTO) 0.2 % (0.0-2.0); EOSINOPHILS % (AUTO) 0.4 % (0.0-6.0); HEMATOCRIT 27 % (33-45); HEMOGLOBIN 8.3 g/dL (11.5-14.8); LYMPHOCYTES # (AUTO) 2.4 K/uL (0.8-4.8); LYMPHOCYTES % (AUTO) 5.7 % (20.0-44.0); MEAN CORPUSCULAR HGB CONC 31 g/dl (31.0-36.0); MEAN CORPUSCULAR VOLUME 102 fL (82-100); NEUTROPHILS # (AUTO) 37.2 K/uL (1.8-8.9); NEUTROPHILS % (AUTO) 86.7 % (43.0-81.0); PLATELET COUNT (AUTO) 323 K/uL (150-450); RED BLOOD CELL COUNT(AUTO) 2.65 MIL/uL (4.0-5.2)
[2022-07-26 06:39] LABS: WHITE BLOOD COUNT (AUTO) 42.9 K/uL (4.3-11.0)
--- NOTE | 2022-07-26 06:41 | NUR ---
EKG completed, results given to nurse
--- NOTE | 2022-07-26 06:50 | NUR ---
RN NOTES WBC 42.9 DR FONTENOT INFORMED
--- NOTE | 2022-07-26 06:54 | NUR ---
RN NNOTES PATIENT ON TELE MONITOR SHOWING ST, O2 SAT AT >97%. PT IS HAS AN EPISODE OF ELEVATED TEMPERATURE COOLING MEASURES RENDERED. NO S/SX OF ACUTE DISTRESS NOTED.ALL DUE MEDS GIVEN. AM/PM CARE DONE. TURNED AND REPOSITIONED.SAFETY MEASURES REINFORCED. HOB ELEVATED AT ALL TIMES. WILL ENDORSED TO MORNING SHIFT FOR COURTNEY
[2022-07-26 06:59] LABS: CALCIUM, SERUM 7.4 mg/dL (8.5-10.1); CREATININE 1.1 mg/dL (0.6-1.3)
[2022-07-26 07:07] LABS: IMMUNOGLOBULIN A, SERUM 241 mg/dL (64-422); IMMUNOGLOBULIN G, SERUM 1201 mg/dL (586-1602); IMMUNOGLOBULIN M, SERUM 55 mg/dL (26-217)
--- NOTE | 2022-07-26 07:30 | NUR ---
RN OPENING NOTE RECEIVED PATIENT IN BED ASLEEP BUT EASILY AROUSES TO VOICE AND TOUCH. PATIENT IS NON VERBAL PATIENT IS ON MECHANICAL VENT WITH SETTINGS FOLLOWS: AC MODE, RR 18, TV 400, FIO2 40% PEEP ON ST WITH HR OF 103. NO SOB NOTED. NO RESPIRATORY DISTRESS NOTED. HAS IV ACCESS NOTED ON RIGHT UPPER ARM MIDLINE, PATENT AND INTACT, INFUSING NS AT 75 CC/HR. GTUBE IN PLACE, WITH G-TUBE FEEDING OF JEVITY 1.2 AT 55 CC/HR. NO RESIDUAL NOTED. MONTEJO CATHETER INTACT, DRAINING TO A CLEAR YELLOW URINE. ALL SAFETY MEASURES IN PLACED. BED LOCKED AND IN LOWEST POSITION. 3 SIDE RAILS UP, CALL LIGHT WITHIN REACH. WILL CONTINUE TO MONITOR THROUGHOUT SHIFT.
[2022-07-26 08:00] VITALS: BP 111/61
[2022-07-26 08:06] LABS: BILIRUBIN,DIRECT 0.2 mg/dL (0.0-0.2); BILIRUBIN,TOTAL 0.3 mg/dL (0.2-1.0); TOTAL PROTEIN, SERUM 5.8 g/dL (6.4-8.2)
[2022-07-26 08:11] LABS: ALBUMIN 1.3 g/dL (3.4-5.0)
[2022-07-26] MEDS: ENOXAPARIN SODIUM 60 MG/0.6 ML DISP.SYRIN SQ SCH ×2 (08:49→21:36)
[2022-07-26] MEDS: PANTOPRAZOLE 40 MG/PACK PACK GT SCH (08:50)
[2022-07-26] MEDS: ASCORBIC ACID 500 MG TABLET GT SCH (08:50)
[2022-07-26] MEDS: DOCUSATE SODIUM 100 MG CAPSULE PO SCH (08:50)
[2022-07-26] MEDS: CHLORHEXIDINE GLUCONATE 15 ML UDC MM SCH ×2 (08:50→17:27)
[2022-07-26] MEDS: HYDROXYUREA 500 MG CAPSULE PO SCH (08:50)
[2022-07-26] MEDS: LEVOTHYROXINE SODIUM 75 MCG TABLET GT SCH (08:50)
[2022-07-26] MEDS: VORICONAZOLE 200 MG TABLET PO SCH (08:51)
[2022-07-26] MEDS: clonazePAM 0.5 MG TABLET GT SCH ×2 (08:51→21:34)
[2022-07-26] MEDS: CHOLECALCIFEROL 1,000 UNIT TABLET (VIT D3) GT SCH (08:51)
[2022-07-26] MEDS: QUETIAPINE FUMARATE 25 MG TABLET GT SCH ×2 (08:51→21:34)
[2022-07-26] MEDS: MULTIVITAMINS,THERAGRAN 1 UDTAB TABLET GT SCH (08:51)
[2022-07-26] MEDS: MUPIROCIN OINT 2% 22 GM TUBE NS SCH ×2 (08:55→21:45)
[2022-07-26 09:39] LABS: BAND % (MANUAL) 4 % (0.0-5.0); LYMPHOCYTES % (MANUAL) 4 % (16-48); METAMYELOCYTES % 1 % (0-0); MONOCYTES % (MANUAL) 6 % (0-11.0); MYELOCYTES % 1 % (0-0); NEUTROPHILS % (MANUAL) 84 (42-76)
[2022-07-26 12:00] VITALS: BP 123/71
[2022-07-26 15:06] LABS: *SPE A/G RATIO 0.4 (0.7-1.7); *SPE ALPHA-1-GLOBULIN 0.4 g/dL (0.0-0.4); *SPE BETA GLOBULIN 0.8 g/dL (0.7-1.3); *SPE M-SPIKE Not Observed g/dL (Not Observed)
[2022-07-26 16:00] VITALS: BP 131/74
[2022-07-26] MEDS: ACETAMINOPHEN 650 MG/SUPP.RECT RC PRN (16:09)
--- NOTE | 2022-07-26 19:30 | NUR ---
RN OPENING NOTE RECEIVED PT FROM MORNING RN. PATIENT IN BED ON SEMI-SOFIA'S POSITION, ASLEEP BUT EASILY AROUSABLE, NON VERBAL. TRACHEOSTOMY TO MECHANICAL VENTILATOR INTACT, FOLLOWING THE PRESCRIBED SETTINGS: AC MODE, RR 18, TV 400, FIO2 40% PEEP 5, PT TOLERATING WELL. O2 SAT 97%. SINUS TACHYCARDIA ON TELE MONITOR. NO S/SX OF ACUTE RESPI DISTRESS NOTED AT THIS TIME. IV ACCESS NOTED ON RIGHT UPPER ARM PATENT AND INTACT ON CONTINUOS NS@125ML/HR. GTUBE IN PLACE, INFUSING JEVITY 1.2 AT 55 CC/HR. NO RESIDUAL NOTED. MONTEJO CATHETER INTACT, DRAINING TO A CLEAR YELLOW URINE. ALL HOSPITAL SAFETY PRECAUTIONS IN PLACE: BED IS LOCKED IN LOWEST POSITION, 3 SIDE RAILS UP, CALL LIGHT WITHIN REACH. WILL CONTINUE TO MONITOR THROUGHOUT SHIFT.
--- NOTE | 2022-07-26 19:35 | NUR ---
RN CLOSING NOTE PATIENT IN BED ASLEEP BUT EASILY AROUSES TO VOICE AND TOUCH. PATIENT IS NON VERBAL PATIENT IS ON MECHANICAL VENT WITH SETTINGS FOLLOWS: AC MODE, RR 18, TV 400, FIO2 40% PEEP ON ST WITH HR OF 103. NO SOB NOTED. NO RESPIRATORY DISTRESS NOTED. HAS IV ACCESS NOTED ON RIGHT UPPER ARM MIDLINE, PATENT AND INTACT, INFUSING NS AT 75 CC/HR. GTUBE IN PLACE, WITH G-TUBE FEEDING OF JEVITY 1.2 AT 55 CC/HR. NO RESIDUAL NOTED. MONTEJO CATHETER INTACT, EMPTIED 800 CC OF CLEAR YELLOW URINE. ALL SAFETY MEASURES IN PLACED. BED LOCKED AND IN LOWEST POSITION. HOB KEPT ELEVATED. CALL LIGHT WITHIN REACH. WILL ENDORSE TO INCOMING NURSE FOR CONTINUITY OF CARE.
[2022-07-26 20:00] VITALS: BP 111/75
[2022-07-27] VITALS: BP 111/75
[2022-07-27] MEDS: BLOOD SUGAR DIAGNOSTIC 1 EACH STRIP IN SCH ×4 (00:24→17:53)
[2022-07-27] MEDS: JEVITY 1.2 CAL 1,000 ML BOTTLE PEG PRN ×2 (00:25→00:30)
[2022-07-27] MEDS: INSULIN REGULAR, HUMAN 100 UNIT/ML 3 ML VIAL SQ PRN ×2 (00:29→06:17)
[2022-07-27] MEDS: IV NS 0.9% 1,000 ML IV PRN ×2 (03:17→19:44)
[2022-07-27 04:00] VITALS: BP 118/77
--- NOTE | 2022-07-27 04:13 | NUR ---
RT PT RECVD ON ORDERED VENT SETTINGS : RR 18, VT 400, FIO2 40%, PEEP +5 WITH TRACH PATENT, MIDLINE AND SECURED. SUCTION Q2/PRN. NO SOB OR RESPIRATORY DISTRESS NOTED THROUGHOUT SHIFT. VENT IS PLUGGED INTO RED OUTLET WITH ALARMS ON AND AUDIBLE. SPARE BAG AND AMBU BAG AT BEDSIDE. SPO2 >94% MAINTAINED.
[2022-07-27] MEDS: SULFAMETHOXAZOLE/TRIMETHOPRIM 20 ML in IV D5W 500 ML IV SCH ×3 (06:17→21:30)
--- NOTE | 2022-07-27 06:18 | NUR ---
RT EKG COMPLETED, RESULTS GIVEN TO RN
--- NOTE | 2022-07-27 06:52 | NUR ---
RN NOTES PATIENT ON TELE MONITOR SHOWING ST, O2 SAT AT >97%. PT IS HAS AN EPISODE OF ELEVATED TEMPERATURE COOLING MEASURES RENDERED. NO S/SX OF ACUTE DISTRESS NOTED.ALL DUE MEDS GIVEN. AM/PM CARE DONE. TURNED AND REPOSITIONED.SAFETY MEASURES REINFORCED. HOB ELEVATED AT ALL TIMES. WILL ENDORSED TO MORNING SHIFT FOR COURTNEY
[2022-07-27 07:09] LABS: BASOPHILS % (AUTO) 0.1 % (0.0-2.0); EOSINOPHILS % (AUTO) 0.5 % (0.0-6.0); HEMATOCRIT 29 % (33-45); HEMOGLOBIN 8.7 g/dL (11.5-14.8); LYMPHOCYTES # (AUTO) 1.8 K/uL (0.8-4.8); LYMPHOCYTES % (AUTO) 5.6 % (20.0-44.0); MEAN CORPUSCULAR HGB CONC 30 g/dl (31.0-36.0); MEAN CORPUSCULAR VOLUME 105 fL (82-100); MONOCYTES # (AUTO) 2.5 K/uL (0.1-1.30); MONOCYTES % (AUTO) 7.6 % (2.0-12.0); NEUTROPHILS # (AUTO) 28.3 K/uL (1.8-8.9); NEUTROPHILS % (AUTO) 86.2 % (43.0-81.0); PLATELET COUNT (AUTO) 260 K/uL (150-450); RED BLOOD CELL COUNT(AUTO) 2.73 MIL/uL (4.0-5.2)
[2022-07-27 07:17] LABS: WHITE BLOOD COUNT (AUTO) 32.8 K/uL (4.3-11.0)
[2022-07-27 07:35] LABS: CALCIUM, SERUM 7.4 mg/dL (8.5-10.1); CREATININE 0.9 mg/dL (0.6-1.3); POTASSIUM 5.5 mmol/L (3.5-5.1)
[2022-07-27 08:42] VITALS: BP 135/90
[2022-07-27] MEDS: ENOXAPARIN SODIUM 60 MG/0.6 ML DISP.SYRIN SQ SCH ×3 (09:00→21:28)
[2022-07-27 09:34] LABS: BAND % (MANUAL) 7 % (0.0-5.0); LYMPHOCYTES % (MANUAL) 4 % (16-48); METAMYELOCYTES % 4 % (0-0); MONOCYTES % (MANUAL) 5 % (0-11.0); MYELOCYTES % 4 % (0-0); NEUTROPHILS % (MANUAL) 76 (42-76)
[2022-07-27] MEDS: CHOLECALCIFEROL 1,000 UNIT TABLET (VIT D3) GT SCH (09:38)
[2022-07-27] MEDS: ASCORBIC ACID 500 MG TABLET GT SCH (09:38)
[2022-07-27] MEDS: MULTIVITAMINS,THERAGRAN 1 UDTAB TABLET GT SCH (09:39)
[2022-07-27] MEDS: CHLORHEXIDINE GLUCONATE 15 ML UDC MM SCH ×2 (09:39→17:52)
[2022-07-27] MEDS: clonazePAM 0.5 MG TABLET GT SCH ×2 (09:39→21:27)
[2022-07-27] MEDS: HYDROXYUREA 500 MG CAPSULE PO SCH (09:40)
[2022-07-27] MEDS: QUETIAPINE FUMARATE 25 MG TABLET GT SCH ×2 (09:40→21:28)
[2022-07-27] MEDS: PANTOPRAZOLE 40 MG/PACK PACK GT SCH (09:40)
[2022-07-27] MEDS: DOCUSATE SODIUM 100 MG CAPSULE PO SCH (09:40)
[2022-07-27] MEDS: LORAZEPAM INJ 2 MG/ML VIAL IV PRN (09:41)
[2022-07-27] MEDS: LEVOTHYROXINE SODIUM 75 MCG TABLET GT SCH (09:45)
[2022-07-27] MEDS: MUPIROCIN OINT 2% 22 GM TUBE NS SCH ×2 (09:48→21:30)
[2022-07-27] MEDS ORDERED: SODIUM POLYSTYRENE SULFONATE 15 G/60 ML BOTTLE PO ONE (10:00)
--- NOTE | 2022-07-27 12:40 | NUR ---
INFORMATION SERVICES ASSISTANT NOTES RECEIVED PATIENT AWAKE, ALERT AND NONVERBAL.PATIENT IS ON MECHANICAL VENTILATOR WITH ORDERED SETTINGS. PATIENT IS ON TELE MONITOR SHOWING SINUS RHYTHM/SINUS TACHYCARDIA. PATIENT HAS RIGHT UPPER ARM IV. IV INTACT AND PATENT. PATIENT HAS MONTEJO CATHETHER. YELLOW COLOR DRAINING TO GRAVITY. PATIENT HAS OXYGEN SATURATION AT 98%.ALL SAFETY MEASURES IN PLACE. CALL LIGHT WITH REACH. BED LOCKED AT LOWEST POSITION. SIDE RAILS UP X2.
[2022-07-27] MEDS: VORICONAZOLE 200 MG TABLET PO SCH ×2 (14:09→21:27)
--- NOTE | 2022-07-27 15:00 | NUR ---
called pharmacy to clarify order on emar. pharmacy to dose Lovenox 0900 and 1700. already active order for lovenox to be given during nightshift. notified dr. zuniga
[2022-07-27 15:46] VITALS: BP 107/69
[2022-07-27 16:00] VITALS: BP 116/72
[2022-07-27 20:00] VITALS: BP 135/83
--- NOTE | 2022-07-27 20:57 | NUR ---
HARP REGULATOR CLOSING NOTES RECEIVED PATIENT AWAKE, NONVERBAL. PATIENT IS OBTUNDED. PATIENT IS ON MECHANICAL VENTILATOR WITH ORDERED SETTINGS. PATIENT IS ON TELE MONITOR SHOWING SINUS RHYTHM. PATIENT HAS RIGHT UPPER ARM IV. IV INTACT AND PATENT. NO SIGNS OF DISCOMFORT/PAIN. PATIENT HAS MONTEJO CATHETER. YELLOW COLOR DRAINING TO GRAVITY. PATIENT HAS OXYGEN SATURATION AT 98%.ALL SAFETY MEASURES IN PLACE. CALL LIGHT WITH REACH. BED LOCKED AT LOWEST POSITION. SIDE RAILS UP X2.
[2022-07-28] VITALS (10 sets, daily range): BP systolic 100–133; BP diastolic 58–83
[2022-07-28] MEDS: BLOOD SUGAR DIAGNOSTIC 1 EACH STRIP IN SCH ×4 (00:36→17:39)
[2022-07-28] MEDS: INSULIN REGULAR, HUMAN 100 UNIT/ML 3 ML VIAL SQ PRN ×4 (00:38→17:40)
[2022-07-28] MEDS: SULFAMETHOXAZOLE/TRIMETHOPRIM 20 ML in IV D5W 500 ML IV SCH ×3 (05:09→22:16)
[2022-07-28] MEDS: JEVITY 1.2 CAL 1,000 ML BOTTLE PEG PRN (05:35)
[2022-07-28 07:05] LABS: BASOPHILS # (AUTO) 0.1 K/uL (0.0-0.2); BASOPHILS % (AUTO) 0.4 % (0.0-2.0); EOSINOPHILS % (AUTO) 0.3 % (0.0-6.0); HEMATOCRIT 24 % (33-45); HEMOGLOBIN 7.5 g/dL (11.5-14.8); LYMPHOCYTES # (AUTO) 1.7 K/uL (0.8-4.8); LYMPHOCYTES % (AUTO) 5.3 % (20.0-44.0); MEAN CORPUSCULAR HGB CONC 31 g/dl (31.0-36.0); MEAN CORPUSCULAR VOLUME 99 fL (82-100); MONOCYTES # (AUTO) 3.4 K/uL (0.1-1.30); MONOCYTES % (AUTO) 10.5 % (2.0-12.0); NEUTROPHILS # (AUTO) 27.4 K/uL (1.8-8.9); NEUTROPHILS % (AUTO) 83.5 % (43.0-81.0); PLATELET COUNT (AUTO) 235 K/uL (150-450); RED BLOOD CELL COUNT(AUTO) 2.42 MIL/uL (4.0-5.2)
[2022-07-28 07:12] LABS: WHITE BLOOD COUNT (AUTO) 32.8 K/uL (4.3-11.0)
[2022-07-28 07:16] LABS: CALCIUM, SERUM 7.4 mg/dL (8.5-10.1); CREATININE 0.8 mg/dL (0.6-1.3); POTASSIUM 4.9 mmol/L (3.5-5.1)
--- NOTE | 2022-07-28 07:30 | NUR ---
RN OPENING NOTE RECEIVED PATIENT IN BED ON SEMI-SOFIA'S POSITION, ASLEEP BUT EASILY AROUSABLE, NON VERBAL. TRACHEOSTOMY TO MECHANICAL VENTILATOR INTACT, FOLLOWING THE PRESCRIBED SETTINGS: AC MODE, RR 18, TV 400, FIO2 40% PEEP 5, PT TOLERATING WELL. O2 SAT 97%. SINUS TACHYCARDIA ON TELE MONITOR. NO S/SX OF ACUTE RESPI DISTRESS NOTED AT THIS TIME. IV ACCESS NOTED ON RIGHT UPPER ARM PATENT AND INTACT ON CONTINUOS NS@125ML/HR. GTUBE IN PLACE, INFUSING JEVITY 1.2 AT 55 CC/HR. NO RESIDUAL NOTED. MONTEJO CATHETER INTACT, DRAINING TO A CLEAR YELLOW URINE. ALL HOSPITAL SAFETY PRECAUTIONS IN PLACE: BED IS LOCKED IN LOWEST POSITION, 3 SIDE RAILS UP, CALL LIGHT WITHIN REACH. WILL CONTINUE TO MONITOR THROUGHOUT
[2022-07-28] MEDS: LEVOTHYROXINE SODIUM 75 MCG TABLET GT SCH (07:35)
[2022-07-28] MEDS: VORICONAZOLE 200 MG TABLET PO SCH ×2 (09:46→22:15)
[2022-07-28] MEDS: CHLORHEXIDINE GLUCONATE 15 ML UDC MM SCH ×2 (09:46→16:04)
[2022-07-28] MEDS: CHOLECALCIFEROL 1,000 UNIT TABLET (VIT D3) GT SCH (09:47)
[2022-07-28] MEDS: HYDROXYUREA 500 MG CAPSULE PO SCH (09:47)
[2022-07-28] MEDS: ASCORBIC ACID 500 MG TABLET GT SCH (09:47)
[2022-07-28] MEDS: QUETIAPINE FUMARATE 25 MG TABLET GT SCH ×2 (09:47→22:33)
[2022-07-28] MEDS: PANTOPRAZOLE 40 MG/PACK PACK GT SCH (09:47)
[2022-07-28] MEDS: clonazePAM 0.5 MG TABLET GT SCH ×2 (09:47→22:15)
[2022-07-28] MEDS: MULTIVITAMINS,THERAGRAN 1 UDTAB TABLET GT SCH (09:48)
[2022-07-28] MEDS: DOCUSATE SODIUM 100 MG CAPSULE PO SCH (09:48)
[2022-07-28] MEDS: ENOXAPARIN SODIUM 60 MG/0.6 ML DISP.SYRIN SQ SCH (09:49)
[2022-07-28] MEDS: IV NS 0.9% 1,000 ML IV PRN ×2 (10:38→22:34)
[2022-07-28] MEDS: MUPIROCIN OINT 2% 22 GM TUBE NS SCH ×2 (10:39→22:33)
[2022-07-28] MEDS: ACETAMINOPHEN 325 MG TABLET PO PRN (11:43)
[2022-07-28] MEDS ORDERED: diphenhydrAMINE HCL 50 MG/ML VIAL IV ONE (14:30)
[2022-07-28] MEDS ORDERED: ACETAMINOPHEN 325 MG TABLET PO ONE (14:30)
--- NOTE | 2022-07-28 19:10 | NUR ---
RN OPENING NOTES RECEIVED PATIENT ON BED, AWAKE, NON VERBAL. PT. ON TRACH- PORT[place] 6, WITH VENT SETTING AC-18, TIDAL VOLUME- 400, FIO2- 40% SATING AT 97%. WITH CAROLE MID LINE, PATENT, INTACT, FLUSHED WITH NS. NO S/S OF INFILTRATION NOTED. WITH IVF NS @ 125 ML/HR. MONTEJO CATHETER PATENT INTACT DRAINING CLEAR YELLOW URINE VIA GRAVITY. REPOSITION EVERY 2 HRS. ALL SAFETY PRECAUTION PROVIDED, BED IN LOWEST POSITION, LOCKED. BED ALARM ARMED. CALL LIGHT WITH IN REACH. CONTINUE TO MONITOR.
--- NOTE | 2022-07-28 19:33 | NUR ---
CHART COMPUTER CLOSING NOTES: PATIENT AWAKE, NONVERBAL. PATIENT IS OBTUNDED. PATIENT IS ON MECHANICAL VENTILATOR WITH ORDERED SETTINGS. PATIENT IS ON TELE MONITOR SHOWING SINUS RHYTHM. PATIENT HAS RIGHT UPPER ARM IV. IV INTACT AND PATENT. NO SIGNS OF DISCOMFORT/PAIN. PATIENT HAS MONTEJO CATHETER. YELLOW COLOR DRAINING TO GRAVITY. PATIENT HAS OXYGEN SATURATION AT 98%.ALL SAFETY MEASURES IN PLACE. CALL LIGHT WITH REACH. BED LOCKED AT LOWEST POSITION. SIDE RAILS UP X2.. AWAITING FOR BLOOD TO BE READY FOR TRANSFUSION PER BLOOD BANK IS NOT READY YET, ENDORSED TO ONCOMING NURSE TO FOLLOW UP. ASKED EMILEE ovalle WHY YOU ORDERED BLOOD TRANSFUSION WITH HEMOGLOBIN 7.5 SHE SAID IN HER CONDITION ON HYDROXYUREA HEMOGLOBIN SHOULD BE ABOVE 8, SKIING TEACHER RN MADE AWARE
[2022-07-28] MEDS ORDERED: ENOXAPARIN SODIUM 40 MG/0.4 ML DISP.SYRIN SQ SCH (20:00)
[2022-07-28] MEDS ORDERED: diphenhydrAMINE HCL 50 MG/ML VIAL ONE (22:13)
--- NOTE | 2022-07-28 22:21 | NUR ---
RN NOTES 1 UNIT [facility] TRANSFUSION STARTED FOLLOWING HOSPITAL PROTOCOLS. PATIENT'S VITAL SIGNS PRIOR TO TRANSFUSION T- 99.4, PULSE- 105, RR- 30, BP- 100/60. NO ACUTE SIGNS OF REACTIONS TO THE TRANSFUSION. WILL CONTINUE TO MONITOR PATIENT AND ASESS FOR ANY CHANGES TO PATIENT'S CONDITION.
--- NOTE | 2022-07-28 22:36 | NUR ---
RN NOTES NO ACUTE SIGNS OF REACTIONS TO THE TRANSFUSION. WILL CONTINUE TO MONITOR PATIENT AND ASSESS FOR ANY CHANGES TO PATIENT'S CONDITION. VS T- 99.4, PULSE- 115, RR- 26, BP- 111/58
--- NOTE | 2022-07-28 22:51 | NUR ---
RN NOTES NO ACUTE SIGNS OF REACTIONS TO THE TRANSFUSION. WILL CONTINUE TO MONITOR PATIENT AND ASSESS FOR ANY CHANGES TO PATIENT'S CONDITION. VS T- 99.3, PULSE- 111, RR- 30, BP- 116/64
--- NOTE | 2022-07-28 23:51 | NUR ---
RN NOTES NO ACUTE SIGNS OF REACTIONS TO THE TRANSFUSION. WILL CONTINUE TO MONITOR PATIENT AND ASSESS FOR ANY CHANGES TO PATIENT'S CONDITION. VS T- 99.5, PULSE- 113, RR- 26, BP- 109/63
[2022-07-29] VITALS (8 sets, daily range): BP systolic 93–124; BP diastolic 40–95
[2022-07-29] MEDS: BLOOD SUGAR DIAGNOSTIC 1 EACH STRIP IN SCH ×4 (00:16→18:31)
[2022-07-29] MEDS: INSULIN REGULAR, HUMAN 100 UNIT/ML 3 ML VIAL SQ PRN ×4 (00:18→18:33)
--- NOTE | 2022-07-29 00:21 | NUR ---
RN NOTES NO ACUTE SIGNS OF REACTIONS TO THE TRANSFUSION. WILL CONTINUE TO MONITOR PATIENT AND ASSESS FOR ANY CHANGES TO PATIENT'S CONDITION. VS T- 99.6, PULSE- 106, RR- 28, BP- 93/50
--- NOTE | 2022-07-29 01:26 | NUR ---
RN NOTES 1 UNIT [facility] TRANFUSED WITHOUT COMPLICATIONS. NO SIGNS OF ADVERSE REACTION NOTED ON PATIENT. HOSPITAL PROTOCOLS FOLLOWED. VS T- 98.0, PULSE- 101, RR- 30, BP- 105/40
[2022-07-29] MEDS: JEVITY 1.2 CAL 1,000 ML BOTTLE PEG PRN (02:57)
[2022-07-29] MEDS: SULFAMETHOXAZOLE/TRIMETHOPRIM 20 ML in IV D5W 500 ML IV SCH ×3 (04:21→21:04)
[2022-07-29 07:00] LABS: BASOPHILS # (AUTO) 0.1 K/uL (0.0-0.2); BASOPHILS % (AUTO) 0.2 % (0.0-2.0); EOSINOPHILS % (AUTO) 0.4 % (0.0-6.0); HEMATOCRIT 29 % (33-45); HEMOGLOBIN 8.6 g/dL (11.5-14.8); LYMPHOCYTES # (AUTO) 1.9 K/uL (0.8-4.8); LYMPHOCYTES % (AUTO) 5.7 % (20.0-44.0); MEAN CORPUSCULAR HGB CONC 30 g/dl (31.0-36.0); MEAN CORPUSCULAR VOLUME 102 fL (82-100); MONOCYTES # (AUTO) 3.3 K/uL (0.1-1.30); MONOCYTES % (AUTO) 10.1 % (2.0-12.0); NEUTROPHILS # (AUTO) 27.2 K/uL (1.8-8.9); NEUTROPHILS % (AUTO) 83.6 % (43.0-81.0); PLATELET COUNT (AUTO) 237 K/uL (150-450); RED BLOOD CELL COUNT(AUTO) 2.79 MIL/uL (4.0-5.2)
[2022-07-29 07:14] LABS: CALCIUM, SERUM 7.3 mg/dL (8.5-10.1); CREATININE 0.9 mg/dL (0.6-1.3); POTASSIUM 4.6 mmol/L (3.5-5.1)
[2022-07-29 07:20] LABS: WHITE BLOOD COUNT (AUTO) 32.6 K/uL (4.3-11.0)
--- NOTE | 2022-07-29 07:25 | NUR ---
ISOTOPE TECHNICIAN OPENING NOTE PATIENT NONVERBAL AND OBTUNDED. PATIENT IS ON MECHANICAL VENTILATOR WITH ORDERED SETTINGS TOLERATING WELL.PATIENT HAS RIGHT IV. IV PATENT AND FLUSHES WELL. PATIENT IS ON TELE MONITOR SINUS RHYTM. YELLOW COLOR DRAINING TO GRAVITY. GTUBE INTACT AND PATENT.PATIENT OXYGEN SATURATION AT 100%.ALL SAFETY MEASURES IN PLACE. CALL LIGHT WITH REACH. BED LOCKED AT LOWEST POSITION. SIDE RAILS UP X2.
[2022-07-29] MEDS: LEVOTHYROXINE SODIUM 75 MCG TABLET GT SCH (08:07)
[2022-07-29] MEDS: MULTIVITAMINS,THERAGRAN 1 UDTAB TABLET GT SCH (08:07)
[2022-07-29] MEDS: PANTOPRAZOLE 40 MG/PACK PACK GT SCH (08:07)
[2022-07-29] MEDS: CHOLECALCIFEROL 1,000 UNIT TABLET (VIT D3) GT SCH (08:08)
[2022-07-29] MEDS: DOCUSATE SODIUM 100 MG CAPSULE PO SCH (08:08)
[2022-07-29] MEDS: ASCORBIC ACID 500 MG TABLET GT SCH (08:08)
[2022-07-29] MEDS: CHLORHEXIDINE GLUCONATE 15 ML UDC MM SCH ×2 (08:08→16:19)
[2022-07-29] MEDS: QUETIAPINE FUMARATE 25 MG TABLET GT SCH ×2 (08:09→21:05)
[2022-07-29] MEDS: clonazePAM 0.5 MG TABLET GT SCH ×2 (08:10→21:05)
[2022-07-29 08:16] LABS: BAND % (MANUAL) 10 % (0.0-5.0); LYMPHOCYTES % (MANUAL) 4 % (16-48); METAMYELOCYTES % 2 % (0-0); MONOCYTES % (MANUAL) 6 % (0-11.0); MYELOCYTES % 2 % (0-0); NEUTROPHILS % (MANUAL) 76 (42-76)
--- NOTE | 2022-07-29 09:30 | NUR ---
CLARIFIED WITH IF HYDROXUREA, VFEND, AND LOVENOX OKAY TO BE GIVEN. SAID OK TO GIVE. AND NOTIFIED WBC 32.6.
[2022-07-29] MEDS: HYDROXYUREA 500 MG CAPSULE PO SCH (10:33)
[2022-07-29] MEDS: VORICONAZOLE 200 MG TABLET PO SCH ×2 (10:34→21:05)
[2022-07-29] MEDS: ENOXAPARIN SODIUM 40 MG/0.4 ML DISP.SYRIN SQ SCH (10:42)
[2022-07-29] MEDS: MUPIROCIN OINT 2% 22 GM TUBE NS SCH (11:22)
[2022-07-29] MEDS: IV NS 0.9% 1,000 ML IV PRN (13:17)
[2022-07-29] MEDS: ACETAMINOPHEN 325 MG TABLET PO PRN (16:21)
--- NOTE | 2022-07-29 18:30 | NUR ---
TUBE FEEDING CHANGED TO GLUCERNA 1.2 AT 60 ML/HR
[2022-07-29] MEDS: GLUCERNA 1.2 1,000 ML BOTTLE NG PRN (18:49)
--- NOTE | 2022-07-29 19:40 | NUR ---
RN OPENING NOTES: RECEIVED PT IN BED, NONVERBAL AND OBTUNDED. PATIENT IS ON TRACH TO [facility] VENT SETTINGS AND PT TOLERATED WELL. IV ACCESS ON CAROLE MIDLINE INTACT AND PATENT. RUNNING NS AT 125CC/HR. NO FACIAL GRIMACING NOTED. NO ACUTE DISTRESS. MONTEJO CATHETER INTACT AND PATENT. DRAINING BY GRAVITY. NOTED YELLOWISH/CLEAR URINE. G-TUBE FEEDING WELL TOLERATED. ON GLUCERNA 1.2 AT 60CC/HR. ALL SAFETY MEASURES IN PLACE. BED IN LOWEST POSITION AND LOCKED. SIDE RAILS UP X3, PLACE CALL LIGHT WITH IN REACH. WILL CONTINUE TO MONITOR.
--- NOTE | 2022-07-29 20:26 | NUR ---
BOW MAKER MACHINE TENDER CLOSING NOTE PATIENT NONVERBAL AND OBTUNDED. PATIENT IS ON MECHANICAL VENTILATOR WITH ORDERED SETTINGS TOLERATING WELL.PATIENT HAS RIGHT IV. IV PATENT AND FLUSHES WELL. PATIENT IS ON TELE MONITOR SINUS RHYTM. YELLOW COLOR DRAINING TO GRAVITY. GTUBE INTACT AND PATENT.KEPT CLEAN AND DRY.PATIENT OXYGEN SATURATION AT 100%.ALL SAFETY MEASURES IN PLACE. CALL LIGHT WITH REACH. BED LOCKED AT LOWEST POSITION. SIDE RAILS UP X2.
[2022-07-30] VITALS: BP 118/70
[2022-07-30] MEDS: BLOOD SUGAR DIAGNOSTIC 1 EACH STRIP IN SCH ×4 (00:17→17:06)
[2022-07-30] MEDS: INSULIN REGULAR, HUMAN 100 UNIT/ML 3 ML VIAL SQ PRN ×3 (00:18→17:56)
[2022-07-30 04:00] VITALS: BP 126/74
[2022-07-30] MEDS: SULFAMETHOXAZOLE/TRIMETHOPRIM 20 ML in IV D5W 500 ML IV SCH ×3 (05:24→20:35)
[2022-07-30 06:31] LABS: BASOPHILS # (AUTO) 0.1 K/uL (0.0-0.2); BASOPHILS % (AUTO) 0.4 % (0.0-2.0); EOSINOPHILS % (AUTO) 0.5 % (0.0-6.0); HEMATOCRIT 29 % (33-45); HEMOGLOBIN 8.9 g/dL (11.5-14.8); LYMPHOCYTES # (AUTO) 2.1 K/uL (0.8-4.8); LYMPHOCYTES % (AUTO) 5.5 % (20.0-44.0); MEAN CORPUSCULAR HGB CONC 30 g/dl (31.0-36.0); MEAN CORPUSCULAR VOLUME 102 fL (82-100); MONOCYTES # (AUTO) 3.4 K/uL (0.1-1.30); MONOCYTES % (AUTO) 9.1 % (2.0-12.0); NEUTROPHILS # (AUTO) 31.9 K/uL (1.8-8.9); NEUTROPHILS % (AUTO) 84.5 % (43.0-81.0); PLATELET COUNT (AUTO) 156 K/uL (150-450); RED BLOOD CELL COUNT(AUTO) 2.88 MIL/uL (4.0-5.2)
--- NOTE | 2022-07-30 06:51 | NUR ---
RN CLOSING NOTES: PT IN BED, NONVERBAL AND OBTUNDED. PATIENT IS ON TRACH TO [facility] VENT SETTINGS AND PT TOLERATED WELL. O2 SAT 98%. IV ACCESS ON CAROLE MIDLINE INTACT AND PATENT. RUNNING NS AT 125CC/HR. NO FACIAL GRIMACING NOTED. NO ACUTE DISTRESS. MONTEJO CATHETER INTACT AND PATENT. DRAINING BY GRAVITY. NOTED YELLOWISH/CLEAR URINE. G-TUBE FEEDING WELL TOLERATED. ON GLUCERNA 1.2 AT 60CC/HR. ALL DUE MEDS GIVEN ORDERED. BLOOD SUGAR 104. NO COVERAGE NEEDED. NO S/S OF HYPER/HYPOGLYCEMIA. ALL SAFETY MEASURES IN PLACE. BED IN LOWEST POSITION AND LOCKED. SIDE RAILS UP X3, PLACE CALL LIGHT WITH IN REACH. WILL ENDORSE TO MORNING SHIFT NURSE.
[2022-07-30 07:06] LABS: CALCIUM, SERUM 8.1 mg/dL (8.5-10.1); CREATININE 0.7 mg/dL (0.6-1.3); POTASSIUM 5.6 mmol/L (3.5-5.1)
[2022-07-30 07:56] LABS: WHITE BLOOD COUNT (AUTO) 37.7 K/uL (4.3-11.0)
[2022-07-30 08:00] VITALS: BP 109/60
[2022-07-30] MEDS ORDERED: SODIUM POLYSTYRENE SULFONATE 15 G/60 ML BOTTLE PO ONE (08:00)
--- NOTE | 2022-07-30 08:00 | NUR ---
RN NOTES RECEIVED PATIENT TRACHEA /VENT DEPENDENT. PATIENT TOLERATING VENT SETTING WELL, NO SOB NOTES, SUCTION, MOUTH CARE DONE. INSETTED NEW IV ACCESS ON LAC AREA #20 GAUGE INTACT, INFUSING NS AT 125CC/HR. LAB VALUES CHECKED, AND GET COVERAGE, MONTEJO CATHETER DRAINING BY GRAVITY LIGHT YELLOWISH OUTPUT . G-TUBE FEEDING INTACT, NO RESIDUAL, RUNNING GLUCERNA 1.2 @60CC/HR. DUE MEDICATION ADMINISTERED. KEEP HOB ELEVATED FOR ASPIRATION PRECAUTION. WILL FOLLOW UP.
[2022-07-30] MEDS: CHLORHEXIDINE GLUCONATE 15 ML UDC MM SCH ×2 (08:53→17:06)
[2022-07-30] MEDS: PANTOPRAZOLE 40 MG/PACK PACK GT SCH (08:53)
[2022-07-30] MEDS: clonazePAM 0.5 MG TABLET GT SCH ×2 (08:54→20:35)
[2022-07-30] MEDS: ASCORBIC ACID 500 MG TABLET GT SCH (08:54)
[2022-07-30] MEDS: HYDROXYUREA 500 MG CAPSULE PO SCH (08:54)
[2022-07-30] MEDS: QUETIAPINE FUMARATE 25 MG TABLET GT SCH ×2 (08:54→20:35)
[2022-07-30] MEDS: DOCUSATE SODIUM 100 MG CAPSULE PO SCH (08:54)
[2022-07-30] MEDS: CHOLECALCIFEROL 1,000 UNIT TABLET (VIT D3) GT SCH (08:54)
[2022-07-30] MEDS: VORICONAZOLE 200 MG TABLET PO SCH ×2 (08:54→20:35)
[2022-07-30] MEDS: MULTIVITAMINS,THERAGRAN 1 UDTAB TABLET GT SCH (08:54)
[2022-07-30] MEDS: ENOXAPARIN SODIUM 40 MG/0.4 ML DISP.SYRIN SQ SCH (08:56)
[2022-07-30] MEDS: LEVOTHYROXINE SODIUM 75 MCG TABLET GT SCH (09:00)
[2022-07-30] MEDS ORDERED: SODIUM POLYSTYRENE SULF. PWD 15 GM UDC PO ONE (11:00)
[2022-07-30 11:44] LABS: BAND % (MANUAL) 13 % (0.0-5.0); EOSINOPHILS % (MANUAL) 1 % (0-4); LYMPHOCYTES % (MANUAL) 4 % (16-48); METAMYELOCYTES % 2 % (0-0); MONOCYTES % (MANUAL) 5 % (0-11.0); MYELOCYTES % 2 % (0-0); NEUTROPHILS % (MANUAL) 73 (42-76)
[2022-07-30 12:00] VITALS: BP 148/74
[2022-07-30] MEDS: IV NS 0.9% 1,000 ML IV PRN (12:34)
[2022-07-30] MEDS: GLUCERNA 1.2 1,000 ML BOTTLE NG PRN (12:36)
--- NOTE | 2022-07-30 13:00 | NUR ---
RN NOTES ADMINISTERED KAYEXALATE PER MD ORDER, FAMILY NEXT TO THE BED.
[2022-07-30 16:00] VITALS: BP 142/78
--- NOTE | 2022-07-30 18:30 | NUR ---
RN NOTES PM CARE DONE, SUCTION, NEEDS ATTENDED AND ANTICIPATED, BS-147MG/DL COVERAGE GIVEN, VSS, DUE MEDICATION ADMINISTERED. URINE OUTPUT WAS 950ML. PATIENT AWAKE. ASSIST TURN AND REPOSTION Q 2 HR. ENDORSED ONCOMING NURSE COURTNEY.
--- NOTE | 2022-07-30 19:45 | NUR ---
RN OPENING NOTES: RECEIVED PT IN BED, NONVERBAL AND OBTUNDED. PATIENT IS ON TRACH TO [facility] VENT SETTINGS AND PT TOLERATED WELL. IV ACCESS ON LAC INTACT AND PATENT. RUNNING NS AT 125CC/HR. NO FACIAL GRIMACING NOTED. NO ACUTE DISTRESS. MONTEJO CATHETER INTACT AND PATENT. DRAINING BY GRAVITY. NOTED YELLOWISH/CLEAR URINE. G-TUBE FEEDING WELL TOLERATED. ON GLUCERNA 1.2 AT 60CC/HR. ALL SAFETY MEASURES IN PLACE. BED IN LOWEST POSITION AND LOCKED. SIDE RAILS UP X3, PLACE CALL LIGHT WITH IN REACH. WILL CONTINUE TO MONITOR.
[2022-07-30 20:00] VITALS: BP 145/80
[2022-07-31] VITALS: BP 125/83
[2022-07-31] MEDS: BLOOD SUGAR DIAGNOSTIC 1 EACH STRIP IN SCH ×5 (00:18→23:40)
[2022-07-31] MEDS: INSULIN REGULAR, HUMAN 100 UNIT/ML 3 ML VIAL SQ PRN ×3 (00:20→23:41)
[2022-07-31] MEDS: ACETAMINOPHEN 650 MG/SUPP.RECT RC PRN (00:34)
--- NOTE | 2022-07-31 00:47 | NUR ---
RN NOTES: PT'S TEMP INCREASED TO 100.3 F. TYLENOL SUPPOSITORY GIVEN PER PRN ORDER. WILL CONTINUE TO MONITOR
[2022-07-31 04:00] VITALS: BP 125/77
[2022-07-31] MEDS: SULFAMETHOXAZOLE/TRIMETHOPRIM 20 ML in IV D5W 500 ML IV SCH ×3 (04:39→21:08)
--- NOTE | 2022-07-31 05:18 | NUR ---
RN NOTES: PT'S BLOOD SUGAR 122. NO COVERAGE NEEDED. NO S/S OF HYPER/HYPOGLYCEMIA. WILL CONTINUE TO MONITOR
--- NOTE | 2022-07-31 06:48 | NUR ---
RN CLOSING NOTES: PT IN BED, NONVERBAL AND OBTUNDED. PATIENT IS ON TRACH TO [facility] VENT SETTINGS AND PT TOLERATED WELL. O2 SAT 98%. IV ACCESS ON LAC AND CAROLE MIDLINE INTACT AND PATENT. RUNNING NS AT 125CC/HR. NO FACIAL GRIMACING NOTED. NO ACUTE DISTRESS. MONTEJO CATHETER INTACT AND PATENT. DRAINING BY GRAVITY. NOTED YELLOWISH/CLEAR URINE. G-TUBE FEEDING WELL TOLERATED. ON GLUCERNA 1.2 AT 60CC/HR. ALL DUE MEDS GIVEN ORDERED. ALL SAFETY MEASURES IN PLACE. BED IN LOWEST POSITION AND LOCKED. SIDE RAILS UP X3, PLACE CALL LIGHT WITH IN REACH. WILL ENDORSE TO MORNING SHIFT NURSE.
--- NOTE | 2022-07-31 07:10 | NUR ---
RN OPENING NOTES: PT IN BED, NONVERBAL AND OBTUNDED. PATIENT IS ON TRACH TO [facility] VENT SETTINGS AND PT TOLERATED WELL. O2 SAT 98%. IV ACCESS ON LAC AND CAROLE MIDLINE INTACT AND PATENT. RUNNING NS AT 125CC/HR. NO FACIAL GRIMACING NOTED. NO ACUTE DISTRESS. MONTEJO CATHETER INTACT AND PATENT. DRAINING BY GRAVITY. NOTED YELLOWISH/CLEAR URINE. G-TUBE FEEDING WELL TOLERATED. ON GLUCERNA 1.2 AT 60CC/HR. ALL SAFETY MEASURES IN PLACE. BED IN LOWEST POSITION AND LOCKED. SIDE RAILS UP X3, PLACE CALL LIGHT WITH IN REACH. WILL CONTINUE PLAN OF CARE AND ANTICIPATE NEEDS.
[2022-07-31] MEDS: LEVOTHYROXINE SODIUM 75 MCG TABLET GT SCH (07:28)
[2022-07-31] MEDS: GLUCERNA 1.2 1,000 ML BOTTLE NG PRN (07:30)
[2022-07-31 07:35] LABS: BASOPHILS # (AUTO) 0.1 K/uL (0.0-0.2); BASOPHILS % (AUTO) 0.2 % (0.0-2.0); CALCIUM, SERUM 7.7 mg/dL (8.5-10.1); CREATININE 0.8 mg/dL (0.6-1.3); EOSINOPHILS % (AUTO) 0.1 % (0.0-6.0); HEMATOCRIT 27 % (33-45); HEMOGLOBIN 8.5 g/dL (11.5-14.8); LYMPHOCYTES # (AUTO) 2.2 K/uL (0.8-4.8); LYMPHOCYTES % (AUTO) 5.9 % (20.0-44.0); MEAN CORPUSCULAR HGB CONC 32 g/dl (31.0-36.0); MEAN CORPUSCULAR VOLUME 98 fL (82-100); NEUTROPHILS % (AUTO) 85.8 % (43.0-81.0); PLATELET COUNT (AUTO) 300 K/uL (150-450); POTASSIUM 4.5 mmol/L (3.5-5.1); RED BLOOD CELL COUNT(AUTO) 2.73 MIL/uL (4.0-5.2)
[2022-07-31 07:48] LABS: WHITE BLOOD COUNT (AUTO) 37.4 K/uL (4.3-11.0)
[2022-07-31] MEDS: IV NS 0.9% 1,000 ML IV PRN ×2 (07:55→18:56)
[2022-07-31 08:00] VITALS: BP 124/76
[2022-07-31] MEDS: ASCORBIC ACID 500 MG TABLET GT SCH (08:07)
[2022-07-31] MEDS: clonazePAM 0.5 MG TABLET GT SCH ×2 (08:07→20:32)
[2022-07-31] MEDS: PANTOPRAZOLE 40 MG/PACK PACK GT SCH (08:07)
[2022-07-31] MEDS: VORICONAZOLE 200 MG TABLET PO SCH ×2 (08:07→20:31)
[2022-07-31] MEDS: DOCUSATE SODIUM 100 MG CAPSULE PO SCH (08:07)
[2022-07-31] MEDS: QUETIAPINE FUMARATE 25 MG TABLET GT SCH ×2 (08:08→20:32)
[2022-07-31] MEDS: CHOLECALCIFEROL 1,000 UNIT TABLET (VIT D3) GT SCH (08:08)
[2022-07-31] MEDS: MULTIVITAMINS,THERAGRAN 1 UDTAB TABLET GT SCH (08:08)
[2022-07-31] MEDS: CHLORHEXIDINE GLUCONATE 15 ML UDC MM SCH ×2 (08:08→17:05)
[2022-07-31] MEDS: HYDROXYUREA 500 MG CAPSULE PO SCH (08:08)
[2022-07-31] MEDS: ENOXAPARIN SODIUM 40 MG/0.4 ML DISP.SYRIN SQ SCH (08:09)
[2022-07-31 12:00] VITALS: BP 113/65
[2022-07-31 14:00] LABS: BAND % (MANUAL) 10 % (0.0-5.0); BASOPHILS % (MANUAL) 0 % (0.0-2.0); EOSINOPHILS % (MANUAL) 0 % (0-4); LYMPHOCYTES % (MANUAL) 6 % (16-48); METAMYELOCYTES % 1 % (0-0); MONOCYTES % (MANUAL) 7 % (0-11.0); MYELOCYTES % 1 % (0-0); NEUTROPHILS % (MANUAL) 75 (42-76)
[2022-07-31 16:00] VITALS: BP 105/71
--- NOTE | 2022-07-31 18:45 | NUR ---
RN CLOSING NOTES: PT IN BED, NONVERBAL AND OBTUNDED. PATIENT IS ON TRACH TO [facility] VENT SETTINGS AND PT TOLERATED WELL. O2 SAT 98%. IV ACCESS ON LAC AND CAROLE MIDLINE INTACT AND PATENT. RUNNING NS AT 125CC/HR. NO FACIAL GRIMACING NOTED. NO ACUTE DISTRESS. MONTEJO CATHETER INTACT AND PATENT. DRAINING BY GRAVITY. NOTED YELLOWISH/CLEAR URINE. G-TUBE FEEDING WELL TOLERATED. ON GLUCERNA 1.2 AT 60CC/HR. ALL SAFETY MEASURES IN PLACE. BED IN LOWEST POSITION AND LOCKED. SIDE RAILS UP X3, PLACE CALL LIGHT WITH IN REACH. ALL DUE MEDICATIONS ADMINISTERED. WILL ENDORSE TO NIGHTSHIFT NURSE PRICILA FOR CONTINUATION OF CARE.
--- NOTE | 2022-07-31 19:45 | NUR ---
RN OPENING NOTES: RECEIVED PT IN BED, NONVERBAL AND OBTUNDED. PATIENT IS ON TRACH TO [facility] VENT SETTINGS AND PT TOLERATED WELL. IV ACCESS ON CAROLE MIDLINE LAC INTACT AND PATENT. RUNNING NS AT 125CC/HR. NO FACIAL GRIMACING NOTED. NO ACUTE DISTRESS. MONTEJO CATHETER INTACT AND PATENT. DRAINING BY GRAVITY. NOTED YELLOWISH/CLEAR URINE. G-TUBE FEEDING WELL TOLERATED. ON GLUCERNA 1.2 AT 60CC/HR. ALL SAFETY MEASURES IN PLACE. BED IN LOWEST POSITION AND LOCKED. SIDE RAILS UP X3, PLACE CALL LIGHT WITH IN REACH. WILL CONTINUE TO MONITOR.
[2022-07-31 20:00] VITALS: BP 124/74
--- NOTE | 2022-07-31 20:18 | NUR ---
PT RCVD TRACHED WITH SIZE PORTEX 6 ON VENT WITH THE SETTINGS OF AC 18, VT 400,PEEP 5, FIO2 40% AND NEFTALI WELL. TRACH IS PATENT AND SECURED. PT IS AWAKE AND NON VERBAL. SUCTION PRN ,VENT PLUGGED INTO RED OUTLET WITH ALARMS ON AND AUDIBLE. WILL CONTINUE TO MONITOR T/O SHIFT.
[2022-07-31] MEDS: ACETAMINOPHEN 325 MG TABLET PO PRN (20:32)
[2022-07-31] MEDS ORDERED: MEROPENEM 1 G in IV NS 0.9% 100 ML IV SCH (21:00)
--- NOTE | 2022-07-31 23:42 | NUR ---
RN NOTES: PT'S BLOOD SUGAR 146. NO COVERAGE GIVEN. PT WILL NPO AFTER AFTER MIDNIGHT. NO S/S OF HYPER/HYPOGLYCEMIA. WILL CONTINUE TO MONITOR
[2022-08-01] VITALS (11 sets, daily range): BP systolic 101–135; BP diastolic 58–87
[2022-08-01] MEDS: SULFAMETHOXAZOLE/TRIMETHOPRIM 20 ML in IV D5W 500 ML IV SCH ×3 (04:33→22:52)
[2022-08-01] MEDS: MEROPENEM 1 G in IV NS 0.9% 100 ML IV SCH ×3 (04:42→22:52)
[2022-08-01] MEDS: BLOOD SUGAR DIAGNOSTIC 1 EACH STRIP IN SCH ×4 (05:52→23:19)
[2022-08-01] MEDS: INSULIN REGULAR, HUMAN 100 UNIT/ML 3 ML VIAL SQ PRN ×2 (05:53→23:20)
--- NOTE | 2022-08-01 06:56 | NUR ---
RN CLOSING NOTES: PT IN BED, NONVERBAL AND OBTUNDED. PATIENT IS ON TRACH TO [facility] VENT SETTINGS AND PT TOLERATED WELL. O2 SAT 98%. IV ACCESS ON LAC, CAROLE MIDLINE AND RT FOREARM INTACT AND PATENT. RUNNING NS AT 125CC/HR. NO FACIAL GRIMACING NOTED. NO ACUTE DISTRESS. MONTEJO CATHETER INTACT AND PATENT. DRAINING BY GRAVITY. NOTED YELLOWISH/CLEAR URINE. G-TUBE FEEDING WELL TOLERATED. ON GLUCERNA 1.2 AT 60CC/HR. ALL DUE MEDS GIVEN ORDERED. REMAIN NPO AFTER MIDNIGHT FOR THE PROCEDURE. ALL SAFETY MEASURES IN PLACE. BED IN LOWEST POSITION AND LOCKED. SIDE RAILS UP X3, PLACE CALL LIGHT WITH IN REACH. WILL ENDORSE TO MORNING SHIFT NURSE.
--- NOTE | 2022-08-01 07:30 | NUR ---
RN Opening Note PT AO x1-2, not able to express her own concerns. Mumbled "I want to go home" in Brazilian. Patient in bed with no signs of distress, using FLACC pt is in 1-2/ pain. IV running as ordered by physician. No signs of infiltration or pain at site when lines was flushed. Provided oral care. Made pt aware of plan of care. Will continue to monitor throughout shift and provide care as needed. All safety precautions taken with patient, call light and table within reach and bed at lowest position.
[2022-08-01 07:31] LABS: CALCIUM, SERUM 7.7 mg/dL (8.5-10.1); CREATININE 0.7 mg/dL (0.6-1.3); POTASSIUM 4.5 mmol/L (3.5-5.1)
[2022-08-01 07:35] LABS: BASOPHILS % (AUTO) 0.1 % (0.0-2.0); EOSINOPHILS % (AUTO) 0.2 % (0.0-6.0); HEMATOCRIT 25 % (33-45); HEMOGLOBIN 7.7 g/dL (11.5-14.8); LYMPHOCYTES # (AUTO) 1.8 K/uL (0.8-4.8); LYMPHOCYTES % (AUTO) 5.9 % (20.0-44.0); MEAN CORPUSCULAR HGB CONC 31 g/dl (31.0-36.0); MEAN CORPUSCULAR VOLUME 98 fL (82-100); MONOCYTES # (AUTO) 2.7 K/uL (0.1-1.30); MONOCYTES % (AUTO) 8.9 % (2.0-12.0); NEUTROPHILS # (AUTO) 26.1 K/uL (1.8-8.9); NEUTROPHILS % (AUTO) 84.9 % (43.0-81.0); PLATELET COUNT (AUTO) 215 K/uL (150-450); RED BLOOD CELL COUNT(AUTO) 2.54 MIL/uL (4.0-5.2)
[2022-08-01 07:51] LABS: WHITE BLOOD COUNT (AUTO) 30.8 K/uL (4.3-11.0)
[2022-08-01] MEDS: ASCORBIC ACID 500 MG TABLET GT SCH (09:24)
[2022-08-01] MEDS: CHOLECALCIFEROL 1,000 UNIT TABLET (VIT D3) GT SCH (09:24)
[2022-08-01] MEDS: clonazePAM 0.5 MG TABLET GT SCH ×2 (09:24→22:52)
[2022-08-01] MEDS: QUETIAPINE FUMARATE 25 MG TABLET GT SCH ×2 (09:24→22:51)
[2022-08-01] MEDS: HYDROXYUREA 500 MG CAPSULE PO SCH (09:24)
[2022-08-01] MEDS: DOCUSATE SODIUM 100 MG CAPSULE PO SCH (09:24)
[2022-08-01] MEDS: MULTIVITAMINS,THERAGRAN 1 UDTAB TABLET GT SCH (09:24)
[2022-08-01] MEDS: LEVOTHYROXINE SODIUM 75 MCG TABLET GT SCH (09:24)
[2022-08-01] MEDS: VORICONAZOLE 200 MG TABLET PO SCH ×2 (09:24→22:51)
[2022-08-01] MEDS: CHLORHEXIDINE GLUCONATE 15 ML UDC MM SCH ×2 (09:25→16:32)
[2022-08-01] MEDS: PANTOPRAZOLE 40 MG/PACK PACK GT SCH (09:28)
--- NOTE | 2022-08-01 10:30 | NUR ---
right thoracentesis done with with aseptic tech sent specimen 600ml obtained and sent to lab as ordered
[2022-08-01] MEDS: ENOXAPARIN SODIUM 40 MG/0.4 ML DISP.SYRIN SQ SCH (12:30)
[2022-08-01] MEDS ORDERED: ACETAMINOPHEN 325 MG TABLET PO ONE (13:30)
[2022-08-01] MEDS ORDERED: diphenhydrAMINE HCL 50 MG/ML VIAL IV ONE (13:30)
[2022-08-01] MEDS: ACETAMINOPHEN 325 MG TABLET PO PRN (14:42)
--- NOTE | 2022-08-01 15:50 | NUR ---
Blood Transfusion Consent Called Daughter, Melissa Boyce [phone], asked for blood transfusion consent, daughter states she agrees with transfusion. States she will be visiting mother later on today around 5pm
--- NOTE | 2022-08-01 19:07 | NUR ---
RN Closing Note Pt not able to express her concerns, Is able to nod yes or not. Transfusion initiated around 1845, No signs of adverse reactions, New IV started for transfusion on Left wrist, 18g, no signs of infiltration, no pain at site reported. Patient states she is stable and comfortable. Daughter and daughter in law at bedside. Comforting patient and calling patients sister and brother. Patient shows no signs of distress. All safety precautions taken, Blood Transfused following all protocols. Call light and table within reach, bed at lowest position. Will endorse to night nurse patients status.
--- NOTE | 2022-08-01 19:45 | NUR ---
RN NOTE REPORT RECEIVED FROM DARRIN RN, PATIENT IN BED, AO X 1-2, NON VERBALBUT NODS HEAD WITH YES OR NO QUESTIONS, ON TRACH PORTEX#6 CONNECTED TO MECHANICAL VENT WITH SETTINGS FOLLOWS: AC MODE 16, TV 400, FIO2 40%, PEEP 5, SATURATION AT 92%, ST ON THE MONITOR HR IS 103. IV LINE AT RFA, L WRIST, LAC AND CAROLE MIDLINE PATENT FLUSHING WELL, WITH ONGOING BLOOD TRANSFUSION OF 1 UNIT PRBC, VS STABLE, NO TRANSFUSION REACTIONS NOTED. MONTEJO CATHETER DRAINING TO A CLEAR YELLOW OUTPUT. GTUBE IN PLACE, POSITIVE PLACEMENT NOTED, NO RESIDUAL, WITH GLUCERNA AT 60 ML/HR. SAFETY MEASURES IMPLEMENTED, BED IS LOCKED AND AT LOWEST POSITION, HOB ELEVATED, SIDE RAILS UP X 2, CALL LIGHT WITHIN REACH OF PATIENT. WILL CONTINUE TO MONITOR AND REASSESS.
[2022-08-01 22:28] LABS: BAND % (MANUAL) 10 % (0.0-5.0); LYMPHOCYTES % (MANUAL) 10 % (16-48); MONOCYTES % (MANUAL) 5 % (0-11.0); NEUTROPHILS % (MANUAL) 75 (42-76)
[2022-08-02] VITALS: BP 148/56
[2022-08-02 04:00] VITALS: BP 141/87
[2022-08-02] MEDS: MEROPENEM 1 G in IV NS 0.9% 100 ML IV SCH ×3 (06:08→21:31)
[2022-08-02] MEDS: SULFAMETHOXAZOLE/TRIMETHOPRIM 20 ML in IV D5W 500 ML IV SCH ×2 (06:09→16:47)
[2022-08-02] MEDS: BLOOD SUGAR DIAGNOSTIC 1 EACH STRIP IN SCH ×4 (06:11→23:51)
[2022-08-02] MEDS: INSULIN REGULAR, HUMAN 100 UNIT/ML 3 ML VIAL SQ PRN ×3 (06:14→17:44)
[2022-08-02] MEDS: IV NS 0.9% 1,000 ML IV PRN (06:18)
[2022-08-02 06:50] LABS: BASOPHILS # (AUTO) 0.1 K/uL (0.0-0.2); BASOPHILS % (AUTO) 0.3 % (0.0-2.0); EOSINOPHILS % (AUTO) 0.2 % (0.0-6.0); HEMATOCRIT 35 % (33-45); LYMPHOCYTES # (AUTO) 2.8 K/uL (0.8-4.8); LYMPHOCYTES % (AUTO) 7.3 % (20.0-44.0); MEAN CORPUSCULAR HGB CONC 32 g/dl (31.0-36.0); MEAN CORPUSCULAR VOLUME 97 fL (82-100); MONOCYTES # (AUTO) 3.2 K/uL (0.1-1.30); MONOCYTES % (AUTO) 8.3 % (2.0-12.0); NEUTROPHILS % (AUTO) 83.9 % (43.0-81.0); PLATELET COUNT (AUTO) 257 K/uL (150-450); RED BLOOD CELL COUNT(AUTO) 3.61 MIL/uL (4.0-5.2)
[2022-08-02 06:59] LABS: WHITE BLOOD COUNT (AUTO) 38.2 K/uL (4.3-11.0)
[2022-08-02 07:03] LABS: CALCIUM, SERUM 8.4 mg/dL (8.5-10.1); CREATININE 0.8 mg/dL (0.6-1.3); POTASSIUM 4.5 mmol/L (3.5-5.1)
--- NOTE | 2022-08-02 07:27 | NUR ---
UNDERWRITING SUPPORT MANAGER OPENING NOTES: RECEIVED PATIENT IN BED, ASLEEP BUT EASILY AROUSES TO VOICE AND TACTILE STIMULI. NO SOB NOTED, BREATHING EVEN AND UNLABORED. ON MECHANICAL VENTILATION WITH PORTEX # 6, VENT SETTING FOLLOWS: AC 18, TV 400, FI02 40,PEEP 5. PATIENT IS NON VERBAL BUT IS ALERT AND FOLLOWS WITH HER EYES. ON ST ON TELE MONITOR WITH HR OF 115. HAS IV ACCESS ON LEFT WRIST WITH NS @ 125 ML/HR, SITE PATENT, NO S/S INFILTRATION. ALSO HAS SALINE LOCKS ON RIGHT UPPER ARM MIDLINE, RIGHT FOREARM, LEFT AC, ALL SITES PATENT, FLUSHES WELL. ON G-TUBE FEEDING OF GLUCERNA @ 60 ML/HR, G-TUBE IN PLACE, NO RESIDUAL NOTED AND PATENT. MONTEJO CATHETER IN PLACE, DRAINING WITH YELLOW COLORED URINE, NO HEMATURIA AND NO SEDIMENTATION NOTED. BED LOCKED AND IN LOWEST POSITION. HOB KEPT ELEVATED AT ALL TIMES. CALL LIGHT WITHIN REACH. ALL SAFETY MEASURES IN PLACE. WILL CONTINUE TO MONITOR PATIENT THROUGHOUT SHIFT.
[2022-08-02] MEDS: LEVOTHYROXINE SODIUM 75 MCG TABLET GT SCH (07:59)
[2022-08-02 08:00] VITALS: BP 124/81
[2022-08-02] MEDS: PANTOPRAZOLE 40 MG/PACK PACK GT SCH (09:20)
[2022-08-02] MEDS: QUETIAPINE FUMARATE 25 MG TABLET GT SCH ×2 (09:20→21:31)
[2022-08-02] MEDS: DOCUSATE SODIUM 100 MG CAPSULE PO SCH (09:20)
[2022-08-02] MEDS: ASCORBIC ACID 500 MG TABLET GT SCH (09:20)
[2022-08-02] MEDS: CHOLECALCIFEROL 1,000 UNIT TABLET (VIT D3) GT SCH (09:20)
[2022-08-02] MEDS: CHLORHEXIDINE GLUCONATE 15 ML UDC MM SCH ×2 (09:21→16:48)
[2022-08-02] MEDS: HYDROXYUREA 500 MG CAPSULE PO SCH (09:21)
[2022-08-02] MEDS: VORICONAZOLE 200 MG TABLET PO SCH ×2 (09:21→21:31)
[2022-08-02] MEDS: clonazePAM 0.5 MG TABLET GT SCH ×2 (09:21→21:31)
[2022-08-02] MEDS: MULTIVITAMINS,THERAGRAN 1 UDTAB TABLET GT SCH (09:23)
[2022-08-02] MEDS: ENOXAPARIN SODIUM 40 MG/0.4 ML DISP.SYRIN SQ SCH (09:24)
[2022-08-02] MEDS: GLUCERNA 1.2 1,000 ML BOTTLE NG PRN (10:18)
[2022-08-02 12:00] VITALS: BP 116/74
[2022-08-02 12:14] LABS: ABG BASE EXCESS -6.1 mmol/L; ABG OXYGEN SATURATION 91.3 % (92.0-98.5); ABG PCO2 32.6 mmHg (35.0-45.0); ABG PH 7.367 (7.350-7.450); ABG PO2 64.4 mmHg (75.0-100.0); AaDO2 183.3 mmHg; COHb 0.8 % (0.5-1.5); MetHb 0.4 % (0.0-1.5); O2Hb 90.2 % (94.0-97.0); PEEP,BG 5 cm H2O; SITE, ABG Left Radial; VENT MODE, BG AC 40%; VT, ABG 400 mL
[2022-08-02 12:25] LABS: BAND % (MANUAL) 9 % (0.0-5.0); LYMPHOCYTES % (MANUAL) 11 % (16-48); NEUTROPHILS % (MANUAL) 68 (42-76)
[2022-08-02] MEDS: ACETAMINOPHEN 650 MG/SUPP.RECT RC PRN (12:25)
[2022-08-02 12:26] LABS: EOSINOPHILS % (MANUAL) 0 % (0-4); METAMYELOCYTES % 3 % (0-0); MONOCYTES % (MANUAL) 8 % (0-11.0); MYELOCYTES % 1 % (0-0)
[2022-08-02 16:00] VITALS: BP 113/71
--- NOTE | 2022-08-02 19:00 | NUR ---
BUSINESS DEVELOPMENT ASSISTANT CLOSING NOTES: PATIENT IN BED, ASLEEP BUT EASILY AROUSES TO VOICE AND TACTILE STIMULI, NO SOB NOTED, NO RESPIRATORY DISTRESS. ON MECHANICAL VENT WITH SETTING FOLLOWS: AC 18, TV 400, FI02 45% AND PEEP 5. FIO2 INCREASED BY RT. ON ST ON TELE MONITOR WITH HR OF 105. HAS SALINE LOCK ON ON RFA # 22, PATENT, FLUSHES WELL. ALSO HAS MIDLINE ON RIGHT UPPER ARM, LEFT WRIST AND LEFT AC. ON G TUBE FEEDING OF GLUCERNA @ 60 ML/HR, SITE IN PLACE, NO RESIDUAL, FLUSHES WELL. EMPTIED 525 ML OF YELLOW COLORED URINE, NO HEMATURIA AND NO SEDIMENTATION NOTED, MONTEJO CATH IN PLACE. HOB KEPT ELEVATED, BED LOCKED AND IN LOWEST POSITION. WILL ENDORSE TO NEXT SHIFT NURSE FOR CONTINUITY OF CARE.
[2022-08-02 20:00] VITALS: BP 123/73
--- NOTE | 2022-08-02 20:00 | NUR ---
RN NOTE RECEIVED PT OPEN EYES TO VERBAL STIMULI. WITH TRACH CONNECTED TO VENT, NOT IN ANY DISTRESS. SINUS TACH ON TELE MONITOR WITH HR 111. GT PATENT AND IN PLACE, NO RESIDUALS NOTED. HOB ELEVATED. MONTEJO IN PLACE DRAINING YELLOW URINE. WILL CONTINUE TO MONITOR.
[2022-08-03] VITALS (8 sets, daily range): BP systolic 100–145; BP diastolic 35–96
[2022-08-03] MEDS: SULFAMETHOXAZOLE/TRIMETHOPRIM 20 ML in IV D5W 500 ML IV SCH ×3 (00:37→15:35)
[2022-08-03] MEDS: MEROPENEM 1 G in IV NS 0.9% 100 ML IV SCH ×3 (04:49→22:07)
[2022-08-03] MEDS: GLUCERNA 1.2 1,000 ML BOTTLE NG PRN ×2 (05:44→22:14)
[2022-08-03] MEDS: BLOOD SUGAR DIAGNOSTIC 1 EACH STRIP IN SCH ×4 (06:08→23:13)
--- NOTE | 2022-08-03 06:44 | NUR ---
RN NOTE PT TOLERATES VENT SETTINGS, O2 SAT AT 94%. NO SIGNS OF DISTRESS NOTED. PT TOLERATES GT FEEDING, NO RESIDUAL NOTED, KEPT HOB ELEVATED. DUE ATBS GIVEN ORDERED. REMAIN AFEBRILE. WOUND TX DONE ORDERED. TURNED AND REOSITIONED. WILL ENDORSE TO NEXT SHFT NURSE FOR COURTNEY
[2022-08-03 07:38] LABS: BASOPHILS # (AUTO) 0.1 K/uL (0.0-0.2); BASOPHILS % (AUTO) 0.3 % (0.0-2.0); EOSINOPHILS % (AUTO) 0.3 % (0.0-6.0); HEMATOCRIT 33 % (33-45); HEMOGLOBIN 10.6 g/dL (11.5-14.8); LYMPHOCYTES # (AUTO) 2.1 K/uL (0.8-4.8); LYMPHOCYTES % (AUTO) 6.6 % (20.0-44.0); MEAN CORPUSCULAR HGB CONC 32 g/dl (31.0-36.0); MEAN CORPUSCULAR VOLUME 98 fL (82-100); MONOCYTES # (AUTO) 2.5 K/uL (0.1-1.30); MONOCYTES % (AUTO) 7.9 % (2.0-12.0); NEUTROPHILS % (AUTO) 84.9 % (43.0-81.0); PLATELET COUNT (AUTO) 210 K/uL (150-450); RED BLOOD CELL COUNT(AUTO) 3.41 MIL/uL (4.0-5.2)
[2022-08-03 07:49] LABS: CALCIUM, SERUM 8.5 mg/dL (8.5-10.1); CREATININE 0.8 mg/dL (0.6-1.3); POTASSIUM 5.1 mmol/L (3.5-5.1); WHITE BLOOD COUNT (AUTO) 31.8 K/uL (4.3-11.0)
[2022-08-03] MEDS: CHLORHEXIDINE GLUCONATE 15 ML UDC MM SCH ×2 (08:10→16:22)
[2022-08-03] MEDS: DOCUSATE SODIUM 100 MG CAPSULE PO SCH (08:12)
[2022-08-03] MEDS: LEVOTHYROXINE SODIUM 75 MCG TABLET GT SCH (08:12)
[2022-08-03] MEDS: clonazePAM 0.5 MG TABLET GT SCH ×2 (08:12→22:00)
[2022-08-03] MEDS: QUETIAPINE FUMARATE 25 MG TABLET GT SCH ×2 (08:12→22:00)
[2022-08-03] MEDS: PANTOPRAZOLE 40 MG/PACK PACK GT SCH (08:12)
[2022-08-03] MEDS: ASCORBIC ACID 500 MG TABLET GT SCH (08:12)
[2022-08-03] MEDS: VORICONAZOLE 200 MG TABLET PO SCH ×2 (08:12→22:00)
[2022-08-03] MEDS: MULTIVITAMINS,THERAGRAN 1 UDTAB TABLET GT SCH (08:12)
[2022-08-03] MEDS: CHOLECALCIFEROL 1,000 UNIT TABLET (VIT D3) GT SCH (08:12)
[2022-08-03] MEDS: HYDROXYUREA 500 MG CAPSULE PO SCH (08:12)
[2022-08-03] MEDS: ENOXAPARIN SODIUM 40 MG/0.4 ML DISP.SYRIN SQ SCH (08:13)
[2022-08-03 10:13] LABS: BAND % (MANUAL) 6 % (0.0-5.0); LYMPHOCYTES % (MANUAL) 8 % (16-48); MONOCYTES % (MANUAL) 14 % (0-11.0); NEUTROPHILS % (MANUAL) 72 (42-76)
[2022-08-03] MEDS: INSULIN REGULAR, HUMAN 100 UNIT/ML 3 ML VIAL SQ PRN ×2 (12:00→23:15)
[2022-08-03] MEDS ORDERED: ENOXAPARIN SODIUM 40 MG/0.4 ML DISP.SYRIN SQ SCH (17:00)
[2022-08-03 20:04] LABS: ABG BASE EXCESS -6.3 mmol/L; ABG OXYGEN SATURATION 82.1 % (92.0-98.5); ABG PCO2 38.8 mmHg (35.0-45.0); ABG PH 7.315 (7.350-7.450); ABG PO2 50.7 mmHg (75.0-100.0); COHb 0.2 % (0.5-1.5); MetHb 0.4 % (0.0-1.5); O2Hb 81.6 % (94.0-97.0); SITE, ABG Left Radial; VENT MODE, BG AC 18 400 45% +5
[2022-08-03 20:22] LABS: BASOPHILS % (AUTO) 0.1 % (0.0-2.0); EOSINOPHILS % (AUTO) 0.2 % (0.0-6.0); HEMATOCRIT 37 % (33-45); HEMOGLOBIN 11.7 g/dL (11.5-14.8); LYMPHOCYTES # (AUTO) 3.8 K/uL (0.8-4.8); LYMPHOCYTES % (AUTO) 9.9 % (20.0-44.0); MEAN CORPUSCULAR HGB CONC 31 g/dl (31.0-36.0); MEAN CORPUSCULAR VOLUME 98 fL (82-100); MONOCYTES # (AUTO) 3.2 K/uL (0.1-1.30); MONOCYTES % (AUTO) 8.3 % (2.0-12.0); NEUTROPHILS # (AUTO) 31.3 K/uL (1.8-8.9); NEUTROPHILS % (AUTO) 81.5 % (43.0-81.0); PLATELET COUNT (AUTO) 255 K/uL (150-450); RED BLOOD CELL COUNT(AUTO) 3.79 MIL/uL (4.0-5.2)
[2022-08-03 20:24] LABS: WHITE BLOOD COUNT (AUTO) 38.5 K/uL (4.3-11.0)
[2022-08-03 20:30] LABS: CALCIUM, SERUM 8.4 mg/dL (8.5-10.1); CARBON DIOXIDE 23 mmol/L (21-32); CHLORIDE 104 mmol/L (98-107); CREATININE 0.8 mg/dL (0.6-1.3); GLUCOSE 150 mg/dL (74-106); POTASSIUM 5.4 mmol/L (3.5-5.1); SODIUM SERUM 135 mmol/L (136-145); UREA NITROGEN, BLOOD 16 mg/dL (7-18)
[2022-08-03 20:44] LABS: ALANINE AMINOTRANSFERASE 28 U/L (12-78); ALKALINE PHOSPHATASE 285 U/L (46-116); ASPARTATE AMINOTRANSFERASE 29 U/L (15-37); BILIRUBIN,TOTAL 0.2 mg/dL (0.2-1.0); TOTAL PROTEIN, SERUM 6.8 g/dL (6.4-8.2)
[2022-08-03 20:50] LABS: ALBUMIN 1.3 g/dL (3.4-5.0)
[2022-08-03 20:56] LABS: BAND % (MANUAL) 12 % (0.0-5.0); LYMPHOCYTES % (MANUAL) 10 % (16-48); MONOCYTES % (MANUAL) 6 % (0-11.0); NEUTROPHILS % (MANUAL) 72 (42-76)
[2022-08-03] MEDS ORDERED: FUROSEMIDE 20 MG/2 ML VIAL IV ONE (21:00)
[2022-08-03] MEDS ORDERED: HEPARIN INFUSION/D5W 500 ML IV PRN (21:00)
--- NOTE | 2022-08-03 21:00 | NUR ---
RN NOTE PT WITH TRACH VENT FI02 AT 45%, DESATS TO 81%. RT AT BEDSIDE. PT TACHYPNEIC AND DIAPHORETIC, PT OPEN EYES TO STIMULI. NOTIFIED DR GERMAN WITH STAT ORDERS, LABS, CXRAY AND ABG. RESULTS RELAYED. FIO2 INCREASED TO 100% PER MD ORDER, SATING TO LOW 90 91%. RECEIVED ORDER TO TRANSFER PT TO ICU AND TO START HEPARIN DRIP AND GIVE LASIX 60MG IVP ONE TIME.
--- NOTE | 2022-08-03 21:02 | NUR ---
RN NOTES Transferred to ICU as ordered. gisele Torers notified of transfer
--- NOTE | 2022-08-03 21:05 | NUR ---
RT NOTE PT NOTICED TO HAVE SHALLOW BREATHING AND ABDOMINAL DISTENTION. INCREASED WORK OF BREATHING NOTED. CHARGE NURSE RAVEN AND RN JIMENEZ AT BEDSIDE. INCREASED FIO2 TO 100% AND PT TRANSFERRED TO ICU. VENT PLUGGED TO RED OUTLET. TRACH SECURED AND PATENT. MINIMAL SECRETIONS NOTED. ALARMS ON AND AUDIBLE. WILL CONTINUE TO MONITOR CLOSELY.
--- NOTE | 2022-08-03 21:20 | NUR ---
ICU/RN: HEPARIN DRIP ORDERS CLARIFIED WITH DR. JAIN. WILL CONTINUE WITH PLAN OF CARE.
[2022-08-03] MEDS ORDERED: HEPARIN INFUSION/D5W 500 ML IV ONE (21:52)
[2022-08-03] MEDS ORDERED: HEPARIN SODIUM, PORCINE 5000 UNITS/1 ML VIAL IV ONE ×2 (22:00)
--- NOTE | 2022-08-03 22:00 | NUR ---
ICU/RN: HEPARIN BOLUS AND DRIP ADMINISTERED PER PROTOCOL. WILL CONTINUE PLAN OF CARE.
[2022-08-03] MEDS: HEPARIN INFUSION/D5W 500 ML IV PRN (22:02)
--- NOTE | 2022-08-03 23:12 | NUR ---
ICU/RN: DR. GERMAN AT BEDSIDE TO EVALUATE PT. NEW ORDERS RECIEVED. WILL CONTINUE PLAN OF CARE.
[2022-08-03] MEDS ORDERED: ALBUMIN 25% 100 ML IV ONE (23:33)
[2022-08-03] MEDS: ALBUMIN 25% 25 GM in PREMIX 1 EA IV SCH (23:36)
[2022-08-04] VITALS (39 sets, daily range): BP systolic 86–151; BP diastolic 54–95
[2022-08-04 00:10] LABS: BILIRUBIN,DIRECT 0.1 mg/dL (0.0-0.2)
[2022-08-04] MEDS: SULFAMETHOXAZOLE/TRIMETHOPRIM 20 ML in IV D5W 500 ML IV SCH ×3 (01:25→17:52)
[2022-08-04 04:26] LABS: BASOPHILS # (AUTO) 0.1 K/uL (0.0-0.2); BASOPHILS % (AUTO) 0.2 % (0.0-2.0); EOSINOPHILS % (AUTO) 0.2 % (0.0-6.0); HEMATOCRIT 32 % (33-45); HEMOGLOBIN 10.2 g/dL (11.5-14.8); LYMPHOCYTES # (AUTO) 2.2 K/uL (0.8-4.8); LYMPHOCYTES % (AUTO) 8.6 % (20.0-44.0); MEAN CORPUSCULAR HGB CONC 32 g/dl (31.0-36.0); MEAN CORPUSCULAR VOLUME 98 fL (82-100); MONOCYTES # (AUTO) 2.1 K/uL (0.1-1.30); MONOCYTES % (AUTO) 8.4 % (2.0-12.0); NEUTROPHILS # (AUTO) 20.9 K/uL (1.8-8.9); NEUTROPHILS % (AUTO) 82.6 % (43.0-81.0); PLATELET COUNT (AUTO) 201 K/uL (150-450); RED BLOOD CELL COUNT(AUTO) 3.27 MIL/uL (4.0-5.2); WHITE BLOOD COUNT (AUTO) 25.2 K/uL (4.3-11.0)
[2022-08-04 04:47] LABS: ALBUMIN 1.6 g/dL (3.4-5.0); BILIRUBIN,TOTAL 0.2 mg/dL (0.2-1.0); CALCIUM, SERUM 8.1 mg/dL (8.5-10.1); CREATININE 0.8 mg/dL (0.6-1.3); POTASSIUM 5.4 mmol/L (3.5-5.1); TOTAL PROTEIN, SERUM 6.3 g/dL (6.4-8.2)
--- NOTE | 2022-08-04 05:00 | NUR ---
ICU/RN: PER HEPARIN PROTOCOL PTT 90.2 DECREASE HEPARIN DRIP BY 150UNITS/HR. NEW RATE 1400UNITS/HR. REPEAT PTT IN 6 HOURS.
[2022-08-04] MEDS: MEROPENEM 1 G in IV NS 0.9% 100 ML IV SCH ×3 (05:02→21:06)
[2022-08-04] MEDS: INSULIN REGULAR, HUMAN 100 UNIT/ML 3 ML VIAL SQ PRN ×3 (06:32→18:12)
[2022-08-04] MEDS: BLOOD SUGAR DIAGNOSTIC 1 EACH STRIP IN SCH ×3 (06:32→17:52)
[2022-08-04] MEDS ORDERED: SODIUM POLYSTYRENE SULFONATE 15 G/60 ML BOTTLE PO ONE (09:00)
[2022-08-04] MEDS: clonazePAM 0.5 MG TABLET GT SCH ×2 (09:40→21:05)
[2022-08-04] MEDS: CHLORHEXIDINE GLUCONATE 15 ML UDC MM SCH ×2 (09:56→17:52)
[2022-08-04] MEDS: MULTIVITAMINS,THERAGRAN 1 UDTAB TABLET GT SCH (09:56)
[2022-08-04] MEDS: PANTOPRAZOLE 40 MG/PACK PACK GT SCH (09:56)
[2022-08-04] MEDS: HYDROXYUREA 500 MG CAPSULE PO SCH (09:56)
[2022-08-04] MEDS: LEVOTHYROXINE SODIUM 75 MCG TABLET GT SCH (09:56)
[2022-08-04] MEDS: CHOLECALCIFEROL 1,000 UNIT TABLET (VIT D3) GT SCH (09:56)
[2022-08-04] MEDS: QUETIAPINE FUMARATE 25 MG TABLET GT SCH ×2 (09:57→21:05)
[2022-08-04] MEDS: VORICONAZOLE 200 MG TABLET PO SCH ×2 (09:57→21:05)
[2022-08-04] MEDS: FUROSEMIDE 40 MG/4 ML VIAL IV SCH ×2 (09:57→17:52)
[2022-08-04] MEDS: DOCUSATE SODIUM LIQ 100 MG/10 ML UDC PEG SCH (09:57)
[2022-08-04] MEDS: ASCORBIC ACID 500 MG TABLET GT SCH (09:57)
[2022-08-04] MEDS ORDERED: HEPARIN SODIUM, PORCINE 5000 UNITS/1 ML VIAL IV ONE (11:00)
[2022-08-04] MEDS: ALBUMIN 25% 25 GM in PREMIX 1 EA IV SCH (13:28)
[2022-08-04] MEDS: HEPARIN INFUSION/D5W 500 ML IV PRN (13:38)
--- NOTE | 2022-08-04 19:10 | NUR ---
RN OPENING NOTES RECEIVED PATIENT ON BED, AWAKE, NON VERBAL. PT. ON TRACH- PORTEX 6, WITH VENT SETTING AC-18, TIDAL VOLUME- 400, FIO2- 80% SATING AT 94%. WITH OLIVERIO MID LINE AND LAC # 20 PERIPHERAL LINE, PATENT, INTACT, FLUSHED WITH NS. NO S/S OF INFILTRATION NOTED. GTUBE PATENT AND INTACT, VERIFIED PLACEMENT BY AUSCULTATION, NO RESIDUAL NOTED UPON ASPIRATION, FLUSHED WITH WATER, RUNNING WITH GLUSERNA 1.2 @ 60 ML/MIN. MONTEJO CATHETER PATENT INTACT DRAINING CLEAR YELLOW URINE VIA GRAVITY. FLEXISEAL WITH WATERY BROWN COLORED STOOL, DRAINING VIA GRAVITY. REPOSITION EVERY 2 HRS. ALL SAFETY PRECAUTION PROVIDED, BED IN LOWEST POSITION, LOCKED. BED ALARM ARMED. CALL LIGHT WITH IN REACH. CONTINUE TO MONITOR.
--- NOTE | 2022-08-04 19:44 | NUR ---
ICU/RN: PER DR. GERMAN HOLD HEPARIN DRIP FOR 1 HOUR. RE-CHECK PTT THEN RESUME BASED OFF PROTOCOL. WILL CONTINUE WITH PLAN CARE.
--- NOTE | 2022-08-04 20:05 | NUR ---
RN NOTES NOTED WITH N1EVU-66%, RT AT BEDSIDE. CHANGES FIO2 SETTING TO 100%.
[2022-08-04] MEDS: GLUCERNA 1.2 1,000 ML BOTTLE NG PRN (20:06)
--- NOTE | 2022-08-04 21:44 | NUR ---
ICU/RN: SPOKE WITH DR. GERMAN AND RELAYED NEW PTT RESULTS 53.4 PER MD RESUME HEPARIN DRIP AT PREVIOUS RATE 1700UNITS/HR. WILL RE-CHECK PTT IN 6 HOURS. CONTINUE PLAN OF CARE.
[2022-08-05] VITALS (53 sets, daily range): BP systolic 82–173; BP diastolic 43–97
[2022-08-05] MEDS: BLOOD SUGAR DIAGNOSTIC 1 EACH STRIP IN SCH ×4 (00:02→17:35)
[2022-08-05] MEDS: SULFAMETHOXAZOLE/TRIMETHOPRIM 20 ML in IV D5W 500 ML IV SCH (00:02)
[2022-08-05] MEDS: INSULIN REGULAR, HUMAN 100 UNIT/ML 3 ML VIAL SQ PRN ×2 (00:03→06:00)
--- NOTE | 2022-08-05 00:04 | NUR ---
RN NOTES BLOOD SUGAR 130 mg/dL, O INSULIN COVERAGE PER SLIDING SCALE, NO S/S OF HYPOGLYCEMIA NOTED.
[2022-08-05] MEDS: IV NS 0.9% 250 ML IV PRN (02:03)
[2022-08-05 04:41] LABS: BASOPHILS # (AUTO) 0.1 K/uL (0.0-0.2); BASOPHILS % (AUTO) 0.2 % (0.0-2.0); EOSINOPHILS % (AUTO) 0.3 % (0.0-6.0); HEMATOCRIT 28 % (33-45); HEMOGLOBIN 9.8 g/dL (11.5-14.8); LYMPHOCYTES # (AUTO) 2.8 K/uL (0.8-4.8); LYMPHOCYTES % (AUTO) 11.6 % (20.0-44.0); MEAN CORPUSCULAR HGB CONC 35 g/dl (31.0-36.0); MEAN CORPUSCULAR VOLUME 99 fL (82-100); MONOCYTES # (AUTO) 2.5 K/uL (0.1-1.30); MONOCYTES % (AUTO) 10.5 % (2.0-12.0); NEUTROPHILS # (AUTO) 18.6 K/uL (1.8-8.9); NEUTROPHILS % (AUTO) 77.4 % (43.0-81.0); PLATELET COUNT (AUTO) 203 K/uL (150-450); RED BLOOD CELL COUNT(AUTO) 2.81 MIL/uL (4.0-5.2)
[2022-08-05 05:03] LABS: CALCIUM, SERUM 7.9 mg/dL (8.5-10.1); CARBON DIOXIDE 23 mmol/L (21-32); CHLORIDE 102 mmol/L (98-107); CREATININE 0.8 mg/dL (0.6-1.3); GLUCOSE 173 mg/dL (74-106); POTASSIUM 5.1 mmol/L (3.5-5.1); SODIUM SERUM 134 mmol/L (136-145); UREA NITROGEN, BLOOD 22 mg/dL (7-18)
[2022-08-05] MEDS: MEROPENEM 1 G in IV NS 0.9% 100 ML IV SCH ×3 (05:10→21:05)
[2022-08-05] MEDS ORDERED: HEPARIN SODIUM, PORCINE 5000 UNITS/1 ML VIAL IV ONE (05:30)
--- NOTE | 2022-08-05 05:30 | NUR ---
ICU/RN: PTT 41.7 PER PROTOCOL 3,200UNIT IVP HEPARIN BOLUS GIVEN. HEPARIN DRIP INCREASED BY 150UNITS/HR. NEW RATE 1,850UNITS/HR. WILL RE-CHECK PTT IN 6 HOURS.
--- NOTE | 2022-08-05 06:01 | NUR ---
RN NOTES BLOOD SUGAR 126 mg/dL, O INSULIN COVERAGE PER SLIDING SCALE, NO S/S OF HYPOGLYCEMIA NOTED.
[2022-08-05] MEDS: HEPARIN INFUSION/D5W 500 ML IV PRN (07:05)
[2022-08-05 07:56] LABS: ABG BASE EXCESS -4.1 mmol/L; ABG OXYGEN SATURATION 95.4 % (92.0-98.5); ABG PCO2 48.4 mmHg (35.0-45.0); ABG PH 7.287 (7.350-7.450); ABG PO2 89.1 mmHg (75.0-100.0); AaDO2 575.5 mmHg; COHb 0.3 % (0.5-1.5); MetHb 0.4 % (0.0-1.5); O2Hb 94.7 % (94.0-97.0); SITE, ABG Left Radial
--- NOTE | 2022-08-05 08:00 | NUR ---
RN NOTES RECEIVED PATIENT TRACHEA/KENNY DEPENDENT. NO ACUTE RESPIRATORY DISTRESS, SETTING IS FIO2-100%, AND PEEP-5. PATIENT'S EYES IS CLOSED, HAS GENERALIZED EDEMA. GET NEW ORDER OF LASIX 40MG/ML IV PUSH, ALSO REVIEWED LAB VALUES. SUCTION, MOUTH CARE DONE. SEEN HOSPITALIST, NEW ORDER IS CONTINUED MONITORING. DUE MEDICATION ADMINISTERED VIA GT, RESIDUAL CHECKED 0 ML, TOLERATING FEEDING WELL. KEEP HOB ELEVATED FOR ASPIRATION PRECAUTION. ASSIST TURN AND REPOSTION Q 2HR. MONTEJO DRAINING VIA GRAVITY. RECHECKED CIRCULATION BILATERAL WRIST RESTRAIN INTACT.WILL FOLLOW UP.
[2022-08-05] MEDS: DOCUSATE SODIUM LIQ 100 MG/10 ML UDC PEG SCH (09:35)
[2022-08-05] MEDS: PANTOPRAZOLE 40 MG/PACK PACK GT SCH (09:36)
[2022-08-05] MEDS: MULTIVITAMINS,THERAGRAN 1 UDTAB TABLET GT SCH (09:36)
[2022-08-05] MEDS: ASCORBIC ACID 500 MG TABLET GT SCH (09:36)
[2022-08-05] MEDS: CHOLECALCIFEROL 1,000 UNIT TABLET (VIT D3) GT SCH (09:36)
[2022-08-05] MEDS: FUROSEMIDE 40 MG/4 ML VIAL IV SCH ×5 (09:36→17:44)
[2022-08-05] MEDS: CHLORHEXIDINE GLUCONATE 15 ML UDC MM SCH ×2 (09:36→17:35)
[2022-08-05] MEDS: clonazePAM 0.5 MG TABLET GT SCH ×2 (09:36→21:05)
[2022-08-05] MEDS: QUETIAPINE FUMARATE 25 MG TABLET GT SCH ×2 (09:36→21:05)
[2022-08-05] MEDS: HYDROXYUREA 500 MG CAPSULE PO SCH (09:37)
[2022-08-05] MEDS: LEVOTHYROXINE SODIUM 75 MCG TABLET GT SCH (09:41)
--- NOTE | 2022-08-05 12:05 | NUR ---
rn notes 1300 scheduled Lasix held because of low bp 91/57, p-100, hospitalist aware of. will follow up.
--- NOTE | 2022-08-05 12:24 | NUR ---
RN NOTES RECEIVED PTT-LEVEL >170 PER PER HEPARIN -BASED DOSING ORDER IF PTT GRADER THAN [address] GRANADOS, AND WAITING FOR NEW ORDERS. HELD HEPARIN INFUSION.
--- NOTE | 2022-08-05 12:40 | NUR ---
RN NOTES GET RESPOND BACK PER MD CALL PHARMACY. PER PHARMACY STOP HEPARIN DRIP AT THIS TIME WITHIN ONE HR, AND REPEAT PTT LEVEL. ORDER TAKEN AND CARRIED OUT.
[2022-08-05] MEDS: GLUCERNA 1.2 1,000 ML BOTTLE NG PRN (14:00)
--- NOTE | 2022-08-05 17:36 | NUR ---
rn notes scheduled Lasix tid 40 ml held because of low bp -97/65, p-97.
--- NOTE | 2022-08-05 18:39 | NUR ---
rn notes pm care done, suction, medication administered, infusing heparin 1700u, and TKO @ OLIVERIO intact, assist turn and reposition q 2hr, Herrera catheter is intact output was 700ml, flaxeseal is intact, patient has generalized edema. assist turn and reposition q 2 hr. endorsed oncoming nurse belkis.
--- NOTE | 2022-08-05 19:20 | NUR ---
RN OPENING NOTES RECEIVED PATIENT ON BED, AWAKE, NON VERBAL. PT. ON TRACH- PORTEX 6, WITH VENT SETTING AC-18, TIDAL VOLUME- 400, FIO2- 90% PEEP- 8. SATING AT 94%. WITH OLIVERIO MID LINE AND LAC # 20 PERIPHERAL LINE, PATENT, INTACT, FLUSHED WITH NS. NO S/S OF INFILTRATION NOTED. GTUBE PATENT AND INTACT, VERIFIED PLACEMENT BY AUSCULTATION, NO RESIDUAL NOTED UPON ASPIRATION, FLUSHED WITH WATER, RUNNING WITH GLUSERNA 1.2 @ 60 ML/MIN. MONTEJO CATHETER PATENT INTACT DRAINING CLEAR YELLOW URINE VIA GRAVITY. FLEXISEAL WITH WATERY BROWN COLORED STOOL, DRAINING VIA GRAVITY. REPOSITION EVERY 2 HRS. ALL SAFETY PRECAUTION PROVIDED, BED IN LOWEST POSITION, LOCKED. BED ALARM ARMED. CALL LIGHT WITH IN REACH. CONTINUE TO MONITOR.
--- NOTE | 2022-08-05 20:00 | NUR ---
RN NOTES PATIENT IS TACHYPNEIC, RR ON MID 30'S TO 40'S, LOOKS UNCOMFORTABLE AND NOTED WITH MILD AGITATION, NOTIFIED DR. GERMAN WITH NEW ORDER TO START PROPOFOL PER HOSPITAL POLICY NOTED AND CARRIED OUT.
[2022-08-05] MEDS: PROPOFOL 100 ML IV PRN (20:04)
[2022-08-06] VITALS (48 sets, daily range): BP systolic 96–142; BP diastolic 57–88
--- NOTE | 2022-08-06 | NUR ---
RN NOTES PTT 76.9 PER PROTOCOL HEPARIN DRIP DECREASED BY 150 UNITS/HR. NEW RATE 1,550 UNITS/HR. WILL RE-CHECK PTT IN 6 HOURS.
[2022-08-06] MEDS: BLOOD SUGAR DIAGNOSTIC 1 EACH STRIP IN SCH ×4 (00:23→17:52)
[2022-08-06] MEDS: INSULIN REGULAR, HUMAN 100 UNIT/ML 3 ML VIAL SQ PRN ×4 (00:23→18:00)
--- NOTE | 2022-08-06 00:24 | NUR ---
RN NOTES BLOOD SUGAR 102 mg/dL, NO INSULIN COVERAGE PER SLIDING SCALE, NO S/S OF HYPOGLYCEMIA NOTED.
[2022-08-06] MEDS: HEPARIN INFUSION/D5W 500 ML IV PRN ×2 (02:03→18:54)
[2022-08-06 04:03] LABS: BASOPHILS % (AUTO) 0.2 % (0.0-2.0); EOSINOPHILS % (AUTO) 0.2 % (0.0-6.0); HEMATOCRIT 31 % (33-45); HEMOGLOBIN 9.9 g/dL (11.5-14.8); LYMPHOCYTES # (AUTO) 2.7 K/uL (0.8-4.8); LYMPHOCYTES % (AUTO) 12.3 % (20.0-44.0); MEAN CORPUSCULAR HGB CONC 32 g/dl (31.0-36.0); MEAN CORPUSCULAR VOLUME 98 fL (82-100); MONOCYTES # (AUTO) 2.4 K/uL (0.1-1.30); MONOCYTES % (AUTO) 10.6 % (2.0-12.0); NEUTROPHILS % (AUTO) 76.7 % (43.0-81.0); PLATELET COUNT (AUTO) 216 K/uL (150-450); RED BLOOD CELL COUNT(AUTO) 3.12 MIL/uL (4.0-5.2); WHITE BLOOD COUNT (AUTO) 22.2 K/uL (4.3-11.0)
[2022-08-06 04:37] LABS: ALANINE AMINOTRANSFERASE 26 U/L (12-78); ALBUMIN 1.7 g/dL (3.4-5.0); ALKALINE PHOSPHATASE 205 U/L (46-116); ASPARTATE AMINOTRANSFERASE 33 U/L (15-37); BILIRUBIN,TOTAL 0.1 mg/dL (0.2-1.0); CARBON DIOXIDE 29 mmol/L (21-32); CHLORIDE 101 mmol/L (98-107); CREATININE 0.8 mg/dL (0.6-1.3); GLUCOSE 116 mg/dL (74-106); MAGNESIUM 1.6 mg/dL (1.8-2.4); POTASSIUM 5.3 mmol/L (3.5-5.1); SODIUM SERUM 136 mmol/L (136-145); TOTAL PROTEIN, SERUM 6.3 g/dL (6.4-8.2); UREA NITROGEN, BLOOD 24 mg/dL (7-18)
[2022-08-06] MEDS: MEROPENEM 1 G in IV NS 0.9% 100 ML IV SCH ×3 (05:03→21:15)
[2022-08-06 06:09] LABS: ABG BASE EXCESS -0.5 mmol/L; ABG OXYGEN SATURATION 97.7 % (92.0-98.5); ABG PCO2 45.9 mmHg (35.0-45.0); ABG PH 7.357 (7.350-7.450); ABG PO2 111.7 mmHg (75.0-100.0); COHb 0.3 % (0.5-1.5); MetHb 0.2 % (0.0-1.5); O2Hb 97.2 % (94.0-97.0); PEEP,BG 8 cm H2O; SITE, ABG Right Radial; VENT MODE, BG AC 18 400 90% +8; VT, ABG 400 mL
--- NOTE | 2022-08-06 06:55 | NUR ---
RN NOTES BLOOD SUGAR 115 mg/dL, NO INSULIN COVERAGE PER SLIDING SCALE, NO S/S OF HYPOGLYCEMIA NOTED.
--- NOTE | 2022-08-06 08:00 | NUR ---
rn notes RECEIVED PATIENT TRACHEA/KENNY DEPENDENT. SETTING IS FIO2-60%, AND PEEP-5. TOLERATING SETTING WELL. PATIENT HAS GENERALIZED EDEMA. SUCTION, MOUTH CARE DONE. DUE MEDICATION ADMINISTERED VIA GT, RESIDUAL CHECKED 0 ML, TOLERATING FEEDING WELL. KEEP HOB ELEVATED FOR ASPIRATION PRECAUTION. ASSIST TURN AND REPOSTION Q 2HR. MONTEJO DRAINING VIA GRAVITY. RECHECKED CIRCULATION BILATERAL WRIST RESTRAIN INTACT.WILL FOLLOW UP.
[2022-08-06] MEDS ORDERED: BUMETANIDE INJ 16 MG in IV NS 0.9% 16 ML IV ONE (09:00)
[2022-08-06] MEDS ORDERED: SODIUM POLYSTYRENE SULF. PWD 15 GM UDC PO ONE (09:00)
[2022-08-06] MEDS: Magnesium 1GM/D5W 100ML PREMIX 100 ML IV SCH ×2 (09:08→10:12)
[2022-08-06] MEDS: HYDROXYUREA 500 MG CAPSULE PO SCH (09:08)
[2022-08-06] MEDS: DOCUSATE SODIUM LIQ 100 MG/10 ML UDC PEG SCH (09:08)
[2022-08-06] MEDS: CHLORHEXIDINE GLUCONATE 15 ML UDC MM SCH ×2 (09:08→17:55)
[2022-08-06] MEDS: PANTOPRAZOLE 40 MG/PACK PACK GT SCH (09:08)
[2022-08-06] MEDS: MULTIVITAMINS,THERAGRAN 1 UDTAB TABLET GT SCH (09:08)
[2022-08-06] MEDS: QUETIAPINE FUMARATE 25 MG TABLET GT SCH ×2 (09:08→21:15)
[2022-08-06] MEDS: ASCORBIC ACID 500 MG TABLET GT SCH (09:08)
[2022-08-06] MEDS: LEVOTHYROXINE SODIUM 75 MCG TABLET GT SCH (09:08)
[2022-08-06] MEDS: CHOLECALCIFEROL 1,000 UNIT TABLET (VIT D3) GT SCH (09:09)
[2022-08-06] MEDS: clonazePAM 0.5 MG TABLET GT SCH ×2 (09:09→21:15)
--- NOTE | 2022-08-06 12:00 | NUR ---
RN NOTES BS- 131MG/DL COVERAGE GIVEN, REPOSTION, LAB VALUES REVIEWED, AND FOLLOW UP.
[2022-08-06] MEDS: GLUCERNA 1.2 1,000 ML BOTTLE NG PRN (12:15)
[2022-08-06] MEDS: PROPOFOL 100 ML IV PRN (14:34)
[2022-08-06] MEDS: ALLOPURINOL 100 MG TABLET PO SCH (17:55)
--- NOTE | 2022-08-06 18:30 | NUR ---
RN NOTES BS-140MG/DL COVERAGE GIVEN, DUE MEDICATION ADMINISTERED,SUCTION, MOUTH CARE DONE. URINE OUTPUT WAS 2900 ML. FLAXESEAL 850ML. ASSIST TURN AND REPOSTION. PATIENT TOLERATING FEEDING WELL. KEEP HOB ELEVATED FOR ASPIRATION PRECAUTION. FAMILY NEXT TO THE BED. ENDORSED ONCOMING NURSE COURTNEY.
[2022-08-06 18:53] LABS: D-DIMER 8.12 mg/L(FEU (0.17-0.50)
--- NOTE | 2022-08-06 19:15 | NUR ---
RN OPENING NOTES RECEIVED PATIENT ON BED, SEDATED. PT. ON TRACH- PORTEX 6, WITH VENT SETTING AC-18, TIDAL VOLUME- 418, FIO2- 60% PEEP- 8. SATING AT 92%. WITH OLIVERIO MID LINE AND LAC # 20 PERIPHERAL LINE, PATENT, INTACT, FLUSHED WITH NS. NO S/S OF INFILTRATION NOTED. WITH HEPARIN DRIP @ 1400 UNITS/HR, PROPOFOL @ 10MCG/KG/MIN. GTUBE PATENT AND INTACT, VERIFIED PLACEMENT BY AUSCULTATION, NO RESIDUAL NOTED UPON ASPIRATION, FLUSHED WITH WATER, RUNNING WITH GLUCERNA 1.2 @ 60 ML/MIN. MONTEJO CATHETER PATENT INTACT DRAINING CLEAR YELLOW URINE VIA GRAVITY. FLEXISEAL WITH WATERY BROWN COLORED STOOL, DRAINING VIA GRAVITY. REPOSITION EVERY 2 HRS. ALL SAFETY PRECAUTION PROVIDED, BED IN LOWEST POSITION, LOCKED. BED ALARM ARMED. CALL LIGHT WITH IN REACH. CONTINUE TO MONITOR.
[2022-08-06] MEDS: IV NS 0.9% 250 ML IV PRN (19:21)
[2022-08-07] VITALS (44 sets, daily range): BP systolic 94–139; BP diastolic 54–91
[2022-08-07] MEDS: BLOOD SUGAR DIAGNOSTIC 1 EACH STRIP IN SCH ×5 (00:34→23:21)
[2022-08-07] MEDS: INSULIN REGULAR, HUMAN 100 UNIT/ML 3 ML VIAL SQ PRN ×4 (00:36→23:22)
[2022-08-07] MEDS: PROPOFOL 100 ML IV PRN ×2 (02:54→18:51)
[2022-08-07 04:20] LABS: BASOPHILS # (AUTO) 0.1 K/uL (0.0-0.2); BASOPHILS % (AUTO) 0.3 % (0.0-2.0); EOSINOPHILS % (AUTO) 0.2 % (0.0-6.0); HEMATOCRIT 32 % (33-45); HEMOGLOBIN 10.6 g/dL (11.5-14.8); LYMPHOCYTES # (AUTO) 2.4 K/uL (0.8-4.8); LYMPHOCYTES % (AUTO) 11.7 % (20.0-44.0); MEAN CORPUSCULAR HGB CONC 33 g/dl (31.0-36.0); MEAN CORPUSCULAR VOLUME 96 fL (82-100); MONOCYTES # (AUTO) 2.2 K/uL (0.1-1.30); MONOCYTES % (AUTO) 10.7 % (2.0-12.0); NEUTROPHILS # (AUTO) 15.7 K/uL (1.8-8.9); NEUTROPHILS % (AUTO) 77.1 % (43.0-81.0); PLATELET COUNT (AUTO) 223 K/uL (150-450); RED BLOOD CELL COUNT(AUTO) 3.35 MIL/uL (4.0-5.2); WHITE BLOOD COUNT (AUTO) 20.4 K/uL (4.3-11.0)
[2022-08-07 04:45] LABS: ALBUMIN 1.5 g/dL (3.4-5.0); BILIRUBIN,TOTAL 0.2 mg/dL (0.2-1.0); CALCIUM, SERUM 8.1 mg/dL (8.5-10.1); CREATININE 0.7 mg/dL (0.6-1.3); MAGNESIUM 1.7 mg/dL (1.8-2.4); PHOSPHORUS 3.3 mg/dL (2.5-4.9); POTASSIUM 4.3 mmol/L (3.5-5.1); TOTAL PROTEIN, SERUM 6.2 g/dL (6.4-8.2); URIC ACID 4.8 mg/dL (2.6-7.2)
[2022-08-07 05:01] LABS: D-DIMER 5.75 mg/L(FEU (0.17-0.50)
[2022-08-07] MEDS: MEROPENEM 1 G in IV NS 0.9% 100 ML IV SCH ×2 (05:19→12:25)
--- NOTE | 2022-08-07 05:20 | NUR ---
RN NOTES LATEST PTT- 48.1 PER PROTOCOL NO CHANGED IN HEPARIN DRIP, CURRENT RATE 1,400 UNITS/HR. WILL RE-CHECK PTT ON 08/08/22 @ 0500.
[2022-08-07] MEDS: GLUCERNA 1.2 1,000 ML BOTTLE NG PRN (05:30)
--- NOTE | 2022-08-07 06:12 | NUR ---
RN NOTES BLOOD SUGAR 124 mg/dL, NO INSULIN COVERAGE PER SLIDING SCALE, NO S/S OF HYPOGLYCEMIA NOTED.
--- NOTE | 2022-08-07 08:00 | NUR ---
RN NOTES RECEIVED PATIENT TRACHEA/KENNY DEPENDENT. SETTING IS FIO2-50%, AND PEEP-5. TOLERATING SETTING WELL. PATENT SEDATED DIPRIVAN 10MCG/KG/MIN. IV ACCESS OLIVERIO MIDLINE INTACT, INFUSING HEPARIN 1400 U PTT 48.1, NEXT PTT IS 08/08/22 @0500 AM SCHEDULED.PATIENT HAS GENERALIZED EDEMA. SUCTION, MOUTH CARE DONE. DUE MEDICATION ADMINISTERED VIA GT, RESIDUAL CHECKED 0 ML, TOLERATING FEEDING WELL GLUCERNA @60ML/HR . KEEP HOB ELEVATED FOR ASPIRATION PRECAUTION. ASSIST TURN AND REPOSTION Q 2HR. MONTEJO DRAINING VIA GRAVITY. WILL FOLLOW UP.
[2022-08-07 08:14] LABS: ABG BASE EXCESS 7.4 mmol/L; ABG OXYGEN SATURATION 93.4 % (92.0-98.5); ABG PCO2 34.8 mmHg (35.0-45.0); ABG PH 7.553 (7.350-7.450); ABG PO2 65.6 mmHg (75.0-100.0); AaDO2 251.8 mmHg; MetHb 0.2 % (0.0-1.5); O2Hb 93.2 % (94.0-97.0); PEEP,BG 8 cm H2O; SITE, ABG Right Radial; VT, ABG 425 mL
[2022-08-07] MEDS: QUETIAPINE FUMARATE 25 MG TABLET GT SCH ×2 (11:29→20:59)
[2022-08-07] MEDS: Magnesium 1GM/D5W 100ML PREMIX 100 ML IV SCH ×2 (11:29→12:20)
[2022-08-07] MEDS: HYDROXYUREA 500 MG CAPSULE PO SCH (11:29)
[2022-08-07] MEDS: CHOLECALCIFEROL 1,000 UNIT TABLET (VIT D3) GT SCH (11:29)
[2022-08-07] MEDS: LEVOTHYROXINE SODIUM 75 MCG TABLET GT SCH (11:29)
[2022-08-07] MEDS: clonazePAM 0.5 MG TABLET GT SCH ×2 (11:29→20:59)
[2022-08-07] MEDS: DOCUSATE SODIUM LIQ 100 MG/10 ML UDC PEG SCH (11:29)
[2022-08-07] MEDS: CHLORHEXIDINE GLUCONATE 15 ML UDC MM SCH ×2 (11:29→17:44)
[2022-08-07] MEDS: ALLOPURINOL 100 MG TABLET PO SCH (11:29)
[2022-08-07] MEDS: PANTOPRAZOLE 40 MG/PACK PACK GT SCH (11:29)
[2022-08-07] MEDS: ASCORBIC ACID 500 MG TABLET GT SCH (11:29)
[2022-08-07] MEDS: MULTIVITAMINS,THERAGRAN 1 UDTAB TABLET GT SCH (11:30)
--- NOTE | 2022-08-07 12:00 | NUR ---
RN NOTES BS-151MG/DL COVERAGE GIVEN, PATIENT SEDATED, DUE MEDICATION ADMINISTERED. NO ACUTE RESPIRATORY DISTRESS, ASSIST TURN AND REPOSTION. WILL FOLLOW UP
[2022-08-07] MEDS: HEPARIN INFUSION/D5W 500 ML IV PRN (12:28)
--- NOTE | 2022-08-07 18:39 | NUR ---
rn notes PM care done, suction. mouth care due , medication administered, bs-127 mg/d. Patient has no acute respiratory distress. patient awake, family next to the bed, urine output was 725ml. Assist turn and reposition q 2 hr. infusing heparin 1400 u,HR-107 at this time resumed Diprivan 5 mcg/kg/min. endorsed oncoming nurse belkis.
--- NOTE | 2022-08-07 19:30 | NUR ---
RN OPENING NOTE RECEIVED REPORT FROM [facility]. PATIENT IN BED, AWAKE, NON VERBAL BUT RESPONDS TO QUESTIONS BY NODDING HEAD. PT ON TRACH- PORTEX 6, WITH VENT SETTING AC-18, TIDAL VOLUME- 425, FIO2- 50% PEEP- 8. TOLERATING WELL, SATING AT 94%. NO S/SX OF ACUTE RESPI DISTRESS NOTED AT THIS TIME. WITH OLIVERIO MID LINE AND LAC # 20 PERIPHERAL LINE, PATENT, INTACT, FLUSHED WITH NS. NO S/S OF INFILTRATION NOTED. GTUBE PATENT AND INTACT, VERIFIED PLACEMENT BY AUSCULTATION, NO RESIDUAL NOTED UPON ASPIRATION, FLUSHED WITH WATER, RUNNING WITH GLUCERNA 1.2 @ 60 ML/HR. MONTEJO CATHETER NOTED, PATENT AND INTACT DRAINING CLEAR YELLOW URINE VIA GRAVITY. FLEXISEAL WITH WATERY BROWN COLORED STOOL NOTED. ALL SAFETY MEASURES IN PLACE: BED IN LOWEST POSITION, LOCKED. BED ALARM ON. CALL LIGHT WITHIN REACH. WILL CONTINUE TO MONITOR.
--- NOTE | 2022-08-07 19:59 | NUR ---
PT RCVD TRACHED W SIZE PORTEX 6 ON VENT WITH THE SETTINGS OF AC 18, VT 400, FIO2, 50% , PEEP 8. VENT PLUGGED INTO RED OUTLET ,VENT ALARMS ON AND AUDIBLE. AMBU BAG @ BEDSIDE. NO RESPIRATORY DISTRESS NOTED AT THIS TIME. WILL CONTINUE TO MONITOR T/O SHIFT.
[2022-08-08] VITALS (34 sets, daily range): BP systolic 101–136; BP diastolic 68–86
[2022-08-08 04:24] LABS: BASOPHILS % (AUTO) 0.2 % (0.0-2.0); EOSINOPHILS % (AUTO) 0.2 % (0.0-6.0); HEMATOCRIT 31 % (33-45); HEMOGLOBIN 10.3 g/dL (11.5-14.8); LYMPHOCYTES # (AUTO) 2.2 K/uL (0.8-4.8); LYMPHOCYTES % (AUTO) 13.7 % (20.0-44.0); MEAN CORPUSCULAR HGB CONC 33 g/dl (31.0-36.0); MEAN CORPUSCULAR VOLUME 96 fL (82-100); MONOCYTES # (AUTO) 1.5 K/uL (0.1-1.30); MONOCYTES % (AUTO) 9.2 % (2.0-12.0); NEUTROPHILS # (AUTO) 12.5 K/uL (1.8-8.9); NEUTROPHILS % (AUTO) 76.7 % (43.0-81.0); PLATELET COUNT (AUTO) 168 K/uL (150-450); RED BLOOD CELL COUNT(AUTO) 3.26 MIL/uL (4.0-5.2); WHITE BLOOD COUNT (AUTO) 16.3 K/uL (4.3-11.0)
[2022-08-08 04:37] LABS: CREATININE 0.6 mg/dL (0.6-1.3); POTASSIUM 4.1 mmol/L (3.5-5.1)
[2022-08-08] MEDS: BLOOD SUGAR DIAGNOSTIC 1 EACH STRIP IN SCH ×4 (05:33→23:21)
[2022-08-08] MEDS: INSULIN REGULAR, HUMAN 100 UNIT/ML 3 ML VIAL SQ PRN ×3 (05:34→23:23)
[2022-08-08] MEDS: IV NS 0.9% 250 ML IV PRN (06:25)
[2022-08-08] MEDS ORDERED: HEPARIN SODIUM, PORCINE 5000 UNITS/1 ML VIAL IV ONE (06:30)
[2022-08-08] MEDS: HEPARIN INFUSION/D5W 500 ML IV PRN ×2 (06:38→22:40)
--- NOTE | 2022-08-08 07:00 | NUR ---
RN NOTE PT LATEST PTT RESULT IS 34.3 WEIGHT-BASED HEPARIN FOR NON ACS: BOLUS OF 6400 UNITS (80/UNITS/KG) AND INCREASE DRIP BY 4 UNITS/KG/HR = 300 UNITS/HR. BOLUS GIVEN PER PROTOCOL, RATE INCREASED TO 1700 UNITS/HR.
[2022-08-08] MEDS: LEVOTHYROXINE SODIUM 75 MCG TABLET GT SCH (08:02)
--- NOTE | 2022-08-08 09:20 | NUR ---
RT NOTE DECREASED PEEP TO 5 PER MD ORDER. VIBHA RN NOTIFIED AND AWARE. WILL CONTINUE TO MONITOR FOR ANY CHANGES.
[2022-08-08] MEDS: clonazePAM 0.5 MG TABLET GT SCH ×2 (09:30→21:13)
[2022-08-08] MEDS: MULTIVITAMINS,THERAGRAN 1 UDTAB TABLET GT SCH (09:31)
[2022-08-08] MEDS: DOCUSATE SODIUM LIQ 100 MG/10 ML UDC PEG SCH (09:31)
[2022-08-08] MEDS: ALLOPURINOL 100 MG TABLET PO SCH (09:31)
[2022-08-08] MEDS: ASCORBIC ACID 500 MG TABLET GT SCH (09:31)
[2022-08-08] MEDS: CHLORHEXIDINE GLUCONATE 15 ML UDC MM SCH ×2 (09:31→17:28)
[2022-08-08] MEDS: CHOLECALCIFEROL 1,000 UNIT TABLET (VIT D3) GT SCH (09:31)
[2022-08-08] MEDS: QUETIAPINE FUMARATE 25 MG TABLET GT SCH ×2 (09:31→21:13)
[2022-08-08] MEDS: PANTOPRAZOLE 40 MG/PACK PACK GT SCH (09:31)
[2022-08-08] MEDS: HYDROXYUREA 500 MG CAPSULE PO SCH (09:31)
[2022-08-08] MEDS ORDERED: LORAZEPAM INJ 2 MG/ML VIAL IVP PRN (10:00)
[2022-08-08] MEDS: PROPOFOL 100 ML IV PRN (11:26)
[2022-08-08] MEDS: GLUCERNA 1.2 1,000 ML BOTTLE NG PRN (13:08)
--- NOTE | 2022-08-08 18:27 | NUR ---
RN/ICU CLOSING PT IS ALERT ABLE TO OPEN EYES ARE RESPOND TO QUESTIONS. BREATHING IS EVEN AND SYNCHRONOUS WITH THE VENTILATOR NO S/S OF DISTRESS. V/S WNL SLIGHTLY TACHY CARDIC AFEBRILE. HEPARIN INFUSION WAS HELD 16:30 DUE TO aPTT OF 99.1 HELD PER PROTOCOL AND DECREASED 3 UNITS AND RESTARTED @1450 U/HR. NO S/S OF BLEEDING. G TUBE IS PATENT AND FLUSHES FEEDING IS RUNNING AT 60ML/H. FLEXI SEAL AND MONTEJO PATENT AND FLUSHED. HOB ELEVATED BED LOCKED
--- NOTE | 2022-08-08 19:30 | NUR ---
PAN DEVULCANIZER REMOVED LAC IV IT WAS LEAKING AND NOT FLUSHING WELL. APPLIED OIL EMULSION PER ORDER TO SACRAL WOUND; OPEN WOUND NOTED WITH MODERATE AMOUNT OF DRAINAGE. WOUND CARE CONSULT REQUESTED.
[2022-08-09] VITALS (18 sets, daily range): BP systolic 104–138; BP diastolic 62–86
--- NOTE | 2022-08-09 00:34 | NUR ---
DATA SME PTT 50; NO CHANGES PER PROTOCOL
[2022-08-09 04:17] LABS: BASOPHILS % (AUTO) 0.1 % (0.0-2.0); EOSINOPHILS % (AUTO) 0.1 % (0.0-6.0); HEMATOCRIT 28 % (33-45); HEMOGLOBIN 9.1 g/dL (11.5-14.8); LYMPHOCYTES # (AUTO) 1.5 K/uL (0.8-4.8); LYMPHOCYTES % (AUTO) 9.2 % (20.0-44.0); MEAN CORPUSCULAR HGB CONC 33 g/dl (31.0-36.0); MEAN CORPUSCULAR VOLUME 96 fL (82-100); MONOCYTES # (AUTO) 1.5 K/uL (0.1-1.30); NEUTROPHILS # (AUTO) 13.4 K/uL (1.8-8.9); NEUTROPHILS % (AUTO) 81.6 % (43.0-81.0); PLATELET COUNT (AUTO) 161 K/uL (150-450); RED BLOOD CELL COUNT(AUTO) 2.88 MIL/uL (4.0-5.2); WHITE BLOOD COUNT (AUTO) 16.4 K/uL (4.3-11.0)
[2022-08-09 04:39] LABS: CALCIUM, SERUM 8.1 mg/dL (8.5-10.1); CARBON DIOXIDE 33 mmol/L (21-32); CHLORIDE 100 mmol/L (98-107); CREATININE 0.5 mg/dL (0.6-1.3); GLUCOSE 139 mg/dL (74-106); POTASSIUM 3.8 mmol/L (3.5-5.1); SODIUM SERUM 137 mmol/L (136-145); UREA NITROGEN, BLOOD 13 mg/dL (7-18)
[2022-08-09] MEDS: BLOOD SUGAR DIAGNOSTIC 1 EACH STRIP IN SCH ×3 (05:31→17:34)
--- NOTE | 2022-08-09 07:21 | NUR ---
WOUND CARE CONSULT: RECEIVED CONSULT FOR RT ARM SKIN TEAR. RECOMMENDATIONS MADE FOR WOUND CARE AND SKIN PROTECTION. DISCUSSED WITH NURSING STAFF. PT FOLLOWED BY SURGICAL TEAM FOR SACRAL DEEP TISSUE INJURY, WHICH WAS NOTED TO BE PRESENT ON ADMISSION. MD IN AGREEMENT WITH PLAN OF CARE.
--- NOTE | 2022-08-09 07:31 | NUR ---
FACTORY MACHINE COMPUTER OPERATOR NOTES: RECEIVED PT AWAKE NOT ABLE TO FOLLOW COMMAND ON TRACH/VENT PRESCRIBED, ON HEPARIN DRIP RATE 1450 UNIT AT THIS , NO BLEEDING OR BRUISES NOTED .SR ON THE MONITOR WITH OLIVERIO MIDLINE FLUSHED WELL..WELL MONITOR
[2022-08-09 07:36] LABS: ABG BASE EXCESS 5.6 mmol/L; ABG OXYGEN SATURATION 96.4 % (92.0-98.5); ABG PCO2 34.2 mmHg (35.0-45.0); ABG PH 7.535 (7.350-7.450); AaDO2 160.9 mmHg; COHb 0.2 % (0.5-1.5); MetHb 0.1 % (0.0-1.5); O2Hb 96.1 % (94.0-97.0); PEEP,BG 5 cm H2O; SITE, ABG Left Radial; VT, ABG 400 mL
[2022-08-09] MEDS: LEVOTHYROXINE SODIUM 75 MCG TABLET GT SCH (07:37)
[2022-08-09] MEDS: HYDROXYUREA 500 MG CAPSULE PO SCH (08:48)
[2022-08-09] MEDS: ASCORBIC ACID 500 MG TABLET GT SCH (08:48)
[2022-08-09] MEDS: ALLOPURINOL 100 MG TABLET PO SCH (08:48)
[2022-08-09] MEDS: CHOLECALCIFEROL 1,000 UNIT TABLET (VIT D3) GT SCH (08:48)
[2022-08-09] MEDS: CHLORHEXIDINE GLUCONATE 15 ML UDC MM SCH ×2 (08:48→17:18)
[2022-08-09] MEDS: MULTIVITAMINS,THERAGRAN 1 UDTAB TABLET GT SCH (08:48)
[2022-08-09] MEDS: DOCUSATE SODIUM LIQ 100 MG/10 ML UDC PEG SCH (08:48)
[2022-08-09] MEDS: QUETIAPINE FUMARATE 25 MG TABLET GT SCH ×2 (08:49→20:19)
[2022-08-09] MEDS: PANTOPRAZOLE 40 MG/PACK PACK GT SCH (08:49)
[2022-08-09] MEDS: clonazePAM 0.5 MG TABLET GT SCH ×2 (08:58→20:19)
--- NOTE | 2022-08-09 09:01 | NUR ---
RECEIVED PTT 64.2, CONTINUE SAME HEPARIN DRIP DOSE OF 1450 UNITS WILL RECHECK PTT IN AM 08/10/2022
[2022-08-09] MEDS: GLUCERNA 1.2 1,000 ML BOTTLE NG PRN (10:43)
[2022-08-09] MEDS: INSULIN REGULAR, HUMAN 100 UNIT/ML 3 ML VIAL SQ PRN (11:40)
--- NOTE | 2022-08-09 14:29 | NUR ---
RN notes: provided pt care while providing care rectal tube came out, tried twice to reinsert continue to come out by itself, rectal tube was discontinued, charge nurse made aware
--- NOTE | 2022-08-09 15:20 | NUR ---
RN NOTES: PT MOVED TO TELE UNIT WITH 2 RT AND 2 RN IN STABLE CONDITION WILL CONTINUE TO MONITOR THE PATIENT
[2022-08-09] MEDS: HEPARIN INFUSION/D5W 500 ML IV PRN (17:17)
--- NOTE | 2022-08-09 19:10 | NUR ---
RN NOTE Patient in bed, AO X 1, non verbal, in no acute distress, on trach to mechanical vent with settings as prescribed, saturation at 96%, SR on the monitor, HR is 95. OLIVERIO midline patent and flushing well with ongoing Heparin infusion at 1450 units/hr. Herrera catheter draining to a clear yellow output. Safety measures in place, bed is locked and at lowest position, bed alarm is on, side rails up x 2, call light within reach of patient. Will cont to monitor and reassess.
--- NOTE | 2022-08-09 19:16 | NUR ---
CHEMICAL PROCESSING LABORER CLOSING NOTES: PATIENT AWAKE, NONVERBAL. PATIENT IS OBTUNDED. PATIENT IS ON MECHANICAL VENTILATOR WITH ORDERED SETTINGS. PATIENT IS ON TELE MONITOR SHOWING SINUS RHYTHM. PATIENT HAS LEFT UPPER ARM ML. IV INTACT AND PATENT.HEPARIN DRIP IS RUNNING AT 1450 UNIT/HR.NO BLEEDING OR BRUISES NOTED. NO SIGNS OF DISCOMFORT/PAIN. PATIENT HAS MONTEJO CATHETER. YELLOW COLOR DRAINING TO GRAVITY. PATIENT HAS OXYGEN SATURATION AT 98%.ALL SAFETY MEASURES IN PLACE. CALL LIGHT WITH REACH. BED LOCKED AT LOWEST POSITION. SIDE RAILS UP X2.. AWAITING FOR BLOOD TO BE READY FOR TRANSFUSION PER BLOOD BANK IS NOT READY YET, ENDORSED TO ONCOMING NURSE FOR COURTNEY
--- NOTE | 2022-08-09 19:45 | NUR ---
PT RCVD TRACHED W SIZE PORTEX 6 ON VENT WITH THE SETTINGS OF AC 14, VT 400, FIO2, 50% , PEEP 5. PT IS AWAKE AND NON VERBAL. VENT PLUGGED INTO RED OUTLET ,VENT ALARMS ON AND AUDIBLE. AMBU BAG @ BEDSIDE. NO RESPIRATORY DISTRESS NOTED AT THIS TIME. WILL CONTINUE TO MONITOR T/O SHIFT.
[2022-08-10] VITALS: BP 141/73
[2022-08-10] MEDS: BLOOD SUGAR DIAGNOSTIC 1 EACH STRIP IN SCH ×4 (00:40→17:51)
[2022-08-10 04:00] VITALS: BP 141/80
[2022-08-10] MEDS: GLUCERNA 1.2 1,000 ML BOTTLE NG PRN (06:30)
[2022-08-10 07:42] LABS: BASOPHILS % (AUTO) 0.1 % (0.0-2.0); EOSINOPHILS % (AUTO) 0.4 % (0.0-6.0); HEMATOCRIT 28 % (33-45); HEMOGLOBIN 9.3 g/dL (11.5-14.8); LYMPHOCYTES # (AUTO) 1.8 K/uL (0.8-4.8); LYMPHOCYTES % (AUTO) 13.3 % (20.0-44.0); MEAN CORPUSCULAR HGB CONC 33 g/dl (31.0-36.0); MEAN CORPUSCULAR VOLUME 96 fL (82-100); MONOCYTES % (AUTO) 7.6 % (2.0-12.0); NEUTROPHILS # (AUTO) 10.5 K/uL (1.8-8.9); NEUTROPHILS % (AUTO) 78.6 % (43.0-81.0); PLATELET COUNT (AUTO) 137 K/uL (150-450); RED BLOOD CELL COUNT(AUTO) 2.91 MIL/uL (4.0-5.2); WHITE BLOOD COUNT (AUTO) 13.4 K/uL (4.3-11.0)
[2022-08-10 08:00] VITALS: BP 105/65
--- NOTE | 2022-08-10 08:00 | NUR ---
RT NOTE: PT RECEIVED STABLE UNABLE TO FOLLOW COMMANDS. PT VENT IS PLUGGED INTO RED OUTLET. BAG AND MASK AT BEDSIDE AND SPARE TRACH. BILAT BREATH SOUNDS AND CHEST RISE OBSERVED. PT SHOWS NO SIGNS OF DISTRESS. VENT ALARMS ARE ON AND AUDIBLE. PT TRACH IS PATENT AND SECURE WILL CONTINUE CURRENT THERAPY.
[2022-08-10] MEDS: CHOLECALCIFEROL 1,000 UNIT TABLET (VIT D3) GT SCH (08:23)
[2022-08-10] MEDS: MULTIVITAMINS,THERAGRAN 1 UDTAB TABLET GT SCH (08:23)
[2022-08-10] MEDS: QUETIAPINE FUMARATE 25 MG TABLET GT SCH ×2 (08:23→21:16)
[2022-08-10] MEDS: ASCORBIC ACID 500 MG TABLET GT SCH (08:23)
[2022-08-10] MEDS: PANTOPRAZOLE 40 MG/PACK PACK GT SCH (08:23)
[2022-08-10] MEDS: DOCUSATE SODIUM LIQ 100 MG/10 ML UDC PEG SCH (08:23)
[2022-08-10] MEDS: clonazePAM 0.5 MG TABLET GT SCH ×2 (08:23→21:16)
[2022-08-10] MEDS: ALLOPURINOL 100 MG TABLET PO SCH (08:24)
[2022-08-10] MEDS: LEVOTHYROXINE SODIUM 75 MCG TABLET GT SCH (08:24)
[2022-08-10] MEDS: HYDROXYUREA 500 MG CAPSULE PO SCH (08:24)
[2022-08-10] MEDS: CHLORHEXIDINE GLUCONATE 15 ML UDC MM SCH ×2 (08:24→16:19)
[2022-08-10 08:31] LABS: BILIRUBIN,DIRECT 0.1 mg/dL (0.0-0.2); BILIRUBIN,TOTAL 0.3 mg/dL (0.2-1.0); CALCIUM, SERUM 8.2 mg/dL (8.5-10.1); CREATININE 0.6 mg/dL (0.6-1.3); POTASSIUM 4.1 mmol/L (3.5-5.1); TOTAL PROTEIN, SERUM 5.9 g/dL (6.4-8.2)
[2022-08-10 09:15] LABS: ALBUMIN 1.2 g/dL (3.4-5.0)
[2022-08-10] MEDS: HEPARIN INFUSION/D5W 500 ML IV PRN (09:23)
[2022-08-10 12:17] VITALS: BP 130/76
[2022-08-10 16:12] VITALS: BP 111/67
[2022-08-10] MEDS: INSULIN REGULAR, HUMAN 100 UNIT/ML 3 ML VIAL SQ PRN (17:54)
--- NOTE | 2022-08-10 18:39 | NUR ---
DIRECTOR OF HOUSING CLOSING NOTES: PATIENT AWAKE, NONVERBAL. PATIENT IS OBTUNDED. PATIENT IS ON MECHANICAL VENTILATOR WITH ORDERED SETTINGS. PATIENT IS ON TELE MONITOR SHOWING SINUS RHYTHM. PATIENT HAS LEFT UPPER ARM ML. IV INTACT AND PATENT.HEPARIN DRIP DISCONTINUED NO SIGNS OF DISCOMFORT/PAIN. PATIENT HAS MONTEJO CATHETER. YELLOW COLOR DRAINING TO GRAVITY. PATIENT HAS OXYGEN SATURATION AT 98%.ALL SAFETY MEASURES IN PLACE. CALL LIGHT WITH REACH. BED LOCKED AT LOWEST POSITION. SIDE RAILS UP X2.ALL MEDS WAS ADMINISTERED ALL NEEDS WERE MET .
--- NOTE | 2022-08-10 19:10 | NUR ---
RN NOTE Patient in bed, AO X 1, non verbal, in no acute distress, on trach to mechanical vent with settings as prescribed, saturation at 95%, SR on the monitor, HR is 94. OLIVERIO midline patent and flushing well,saline locked. Gtube in place, positive placement noted, no residual, with Glucerna at 60 ml/hr. Herrera catheter draining to a clear yellow output. Safety measures in place, bed is locked and at lowest position, bed alarm is on, side rails up x 2, call light within reach of patient. Will cont to monitor and reassess.
[2022-08-10 20:00] VITALS: BP 142/78
[2022-08-10] MEDS: ENOXAPARIN SODIUM 80 MG/0.8 ML DISP.SYRIN SQ SCH (21:16)
[2022-08-11 00:05] VITALS: BP 126/80
[2022-08-11] MEDS: BLOOD SUGAR DIAGNOSTIC 1 EACH STRIP IN SCH ×4 (00:10→17:38)
[2022-08-11 04:00] VITALS: BP 125/78
[2022-08-11 06:59] LABS: BASOPHILS % (AUTO) 0.2 % (0.0-2.0); EOSINOPHILS % (AUTO) 0.7 % (0.0-6.0); HEMATOCRIT 27 % (33-45); HEMOGLOBIN 8.7 g/dL (11.5-14.8); LYMPHOCYTES # (AUTO) 1.5 K/uL (0.8-4.8); MEAN CORPUSCULAR HGB CONC 33 g/dl (31.0-36.0); MEAN CORPUSCULAR VOLUME 97 fL (82-100); MONOCYTES % (AUTO) 8.1 % (2.0-12.0); NEUTROPHILS # (AUTO) 9.9 K/uL (1.8-8.9); PLATELET COUNT (AUTO) 141 K/uL (150-450); RED BLOOD CELL COUNT(AUTO) 2.77 MIL/uL (4.0-5.2); WHITE BLOOD COUNT (AUTO) 12.5 K/uL (4.3-11.0)
[2022-08-11] MEDS: GLUCERNA 1.2 1,000 ML BOTTLE NG PRN (07:14)
[2022-08-11 07:19] LABS: CALCIUM, SERUM 8.4 mg/dL (8.5-10.1); CARBON DIOXIDE 31 mmol/L (21-32); CHLORIDE 102 mmol/L (98-107); CREATININE 0.5 mg/dL (0.6-1.3); GLUCOSE 124 mg/dL (74-106); POTASSIUM 3.9 mmol/L (3.5-5.1); SODIUM SERUM 138 mmol/L (136-145); UREA NITROGEN, BLOOD 12 mg/dL (7-18)
--- NOTE | 2022-08-11 07:33 | NUR ---
RN OPENING NOTE Patient in bed, AO X 1, non verbal, in no acute distress, on trach to mechanical vent with settings as prescribed, saturation at 95%, SR on the monitor, HR is 94. OLIVERIO midline patent and flushing well,saline locked. Gtube in place, positive placement noted, no residual, with Glucerna at 60 ml/hr. Herrera catheter draining to a clear yellow output. Safety measures in place, bed is locked and at lowest position, bed alarm is on, side rails up x 2, call light within reach of patient. Will continue plan of care and anticipate needs.
[2022-08-11 08:00] VITALS: BP 125/82
[2022-08-11] MEDS: clonazePAM 0.5 MG TABLET GT SCH ×2 (08:31→20:29)
[2022-08-11] MEDS: DOCUSATE SODIUM LIQ 100 MG/10 ML UDC PEG SCH (08:31)
[2022-08-11] MEDS: QUETIAPINE FUMARATE 25 MG TABLET GT SCH ×2 (08:31→20:29)
[2022-08-11] MEDS: MULTIVITAMINS,THERAGRAN 1 UDTAB TABLET GT SCH (08:31)
[2022-08-11] MEDS: CHLORHEXIDINE GLUCONATE 15 ML UDC MM SCH ×2 (08:31→17:40)
[2022-08-11] MEDS: CHOLECALCIFEROL 1,000 UNIT TABLET (VIT D3) GT SCH (08:31)
[2022-08-11] MEDS: LEVOTHYROXINE SODIUM 75 MCG TABLET GT SCH (08:31)
[2022-08-11] MEDS: ALLOPURINOL 100 MG TABLET PO SCH (08:31)
[2022-08-11] MEDS: HYDROXYUREA 500 MG CAPSULE PO SCH (08:31)
[2022-08-11] MEDS: ASCORBIC ACID 500 MG TABLET GT SCH (08:31)
[2022-08-11] MEDS: PANTOPRAZOLE 40 MG/PACK PACK GT SCH (08:31)
[2022-08-11] MEDS: ENOXAPARIN SODIUM 80 MG/0.8 ML DISP.SYRIN SQ SCH ×2 (08:32→20:31)
[2022-08-11 12:00] VITALS: BP 111/73
[2022-08-11 16:00] VITALS: BP 143/87
--- NOTE | 2022-08-11 18:41 | NUR ---
RN CLOSING NOTE Patient in bed, AO X 1, non verbal, in no acute distress, on trach to mechanical vent with settings as prescribed, saturation at 97%, SR on the monitor. OLIVERIO midline patent and flushing well,saline locked. Gtube in place, positive placement noted, no residual, with Glucerna, paused per feeding schedule. Herrera catheter draining to a clear yellow output. Safety measures in place, bed is locked and at lowest position, bed alarm is on, side rails up x 2, call light within reach of patient. Will endorse to nightshift for continuation of care. Addendum: 08/11/22 at 1847 by VELVET LICONA RN Glucerna running at 60 mls. charted on wrong patient.
--- NOTE | 2022-08-11 19:44 | NUR ---
PLANNING SPECIALIST OPENING NOTES RECEIVED PT IN BED AWAKE, A/O X1 NONVERBAL. PATIENT IS ON MECHANICAL VENTILATOR WITH ORDERED SETTINGS, TOLERATING WELL. PATIENT IS ON TELE MONITOR SHOWING SINUS RHYTHM. IV ACCESS AT LEFT UPPER ARM ML INTACT, PATENET, AND FLUSHING WELL, NO S/SX OF DISCOMFORT/PAIN. PATIENT HAS MONTEJO CATHETER. YELLOW COLOR DRAINING TO GRAVITY. ALL SAFETY MEASURES IN PLACE. CALL LIGHT WITH REACH. BED LOCKED AT LOWEST POSITION. SIDE RAILS UP X2. WILL CONTINUE TO MONITOR THROUGHOUT THE SHIFT.
[2022-08-11 20:00] VITALS: BP 134/78
[2022-08-12] VITALS: BP 126/72
--- NOTE | 2022-08-12 | NUR ---
RN NOTE BS CHECKED AT 118 MG/DL, NO COVERAGE GIVEN PER SLIDING SCALE, WILL CONT TO MONITOR.
[2022-08-12] MEDS: BLOOD SUGAR DIAGNOSTIC 1 EACH STRIP IN SCH ×4 (00:41→17:07)
[2022-08-12] MEDS: GLUCERNA 1.2 1,000 ML BOTTLE NG PRN (03:43)
[2022-08-12 04:00] VITALS: BP 118/84
[2022-08-12] MEDS: INSULIN REGULAR, HUMAN 100 UNIT/ML 3 ML VIAL SQ PRN (05:39)
--- NOTE | 2022-08-12 05:53 | NUR ---
RN NOTE BS CHECKED AT 131 MG/DL, 2 UNITS OF INSULIN GIVEN PER SLIDING SCALE, WILL CONT TO MONITOR.
[2022-08-12 06:16] LABS: BASOPHILS % (AUTO) 0.3 % (0.0-2.0); EOSINOPHILS % (AUTO) 0.3 % (0.0-6.0); HEMATOCRIT 29 % (33-45); HEMOGLOBIN 9.4 g/dL (11.5-14.8); LYMPHOCYTES # (AUTO) 1.6 K/uL (0.8-4.8); MEAN CORPUSCULAR HGB CONC 33 g/dl (31.0-36.0); MEAN CORPUSCULAR VOLUME 96 fL (82-100); MONOCYTES # (AUTO) 0.9 K/uL (0.1-1.30); MONOCYTES % (AUTO) 6.8 % (2.0-12.0); NEUTROPHILS % (AUTO) 79.6 % (43.0-81.0); PLATELET COUNT (AUTO) 169 K/uL (150-450); RED BLOOD CELL COUNT(AUTO) 2.97 MIL/uL (4.0-5.2); WHITE BLOOD COUNT (AUTO) 12.6 K/uL (4.3-11.0)
[2022-08-12 06:28] LABS: CALCIUM, SERUM 8.6 mg/dL (8.5-10.1); CARBON DIOXIDE 31 mmol/L (21-32); CHLORIDE 103 mmol/L (98-107); CREATININE 0.4 mg/dL (0.6-1.3); GLUCOSE 128 mg/dL (74-106); POTASSIUM 3.8 mmol/L (3.5-5.1); SODIUM SERUM 138 mmol/L (136-145); UREA NITROGEN, BLOOD 12 mg/dL (7-18)
--- NOTE | 2022-08-12 06:40 | NUR ---
AUTOCAD DETAILER CLOSING NOTES PT REMAINS IN BED AWAKE, A/O X1 NONVERBAL. PATIENT IS ON MECHANICAL VENTILATOR WITH ORDERED SETTINGS, TOLERATING WELL. PATIENT IS ON TELE MONITOR SHOWING SINUS RHYTHM AT 89. IV ACCESS AT LEFT UPPER ARM ML INTACT, PATENT, AND FLUSHING WELL, NO S/SX OF ACUTE DISTRESS NOTED, WITH GTUBE RUNNING GLUCERNA AT 60 ML/HR, PATIENT HAS MONTEJO CATHETER DRAINING TO GRAVITY WITH YELLOW COLORED URINE. ALL DUE MEDS GIVEN, KEPT DRY AND CLEAN, ALL SAFETY MEASURES IN PLACE. CALL LIGHT WITH REACH. BED LOCKED AND AT LOWEST POSITION. SIDE RAILS UP X2. WILL ENDORSE TO AM SHIFT NURSE.
--- NOTE | 2022-08-12 07:29 | NUR ---
EQUIPMENT TECHNICIAN OPEN NOTES PT REMAINS IN BED AWAKE, A/O X1 NONVERBAL. PATIENT IS ON MECHANICAL VENTILATOR WITH ORDERED SETTINGS, TOLERATING WELL. PATIENT IS ON TELE MONITOR SHOWING SINUS RHYTHM AT 90. IV ACCESS AT LEFT UPPER ARM ML INTACT, PATENT, AND FLUSHING WELL, NO S/SX OF ACUTE DISTRESS NOTED, WITH GTUBE RUNNING GLUCERNA AT 60 ML/HR, PATIENT HAS MONTEJO CATHETER DRAINING TO GRAVITY WITH YELLOW COLORED URINE. ALL DUE MEDS GIVEN, KEPT DRY AND CLEAN, ALL SAFETY MEASURES IN PLACE. CALL LIGHT WITH REACH. BED LOCKED AND AT LOWEST POSITION. SIDE RAILS UP X2. WILL CONTINUE TO FALLOW COURTNEY
[2022-08-12] MEDS: LEVOTHYROXINE SODIUM 75 MCG TABLET GT SCH (07:56)
[2022-08-12 08:00] VITALS: BP 132/76
[2022-08-12] MEDS: HYDROXYUREA 500 MG CAPSULE PO SCH (08:19)
[2022-08-12] MEDS: QUETIAPINE FUMARATE 25 MG TABLET GT SCH (08:19)
[2022-08-12] MEDS: CHOLECALCIFEROL 1,000 UNIT TABLET (VIT D3) GT SCH (08:19)
[2022-08-12] MEDS: ALLOPURINOL 100 MG TABLET PO SCH (08:19)
[2022-08-12] MEDS: MULTIVITAMINS,THERAGRAN 1 UDTAB TABLET GT SCH (08:19)
[2022-08-12] MEDS: DOCUSATE SODIUM LIQ 100 MG/10 ML UDC PEG SCH (08:19)
[2022-08-12] MEDS: ASCORBIC ACID 500 MG TABLET GT SCH (08:19)
[2022-08-12] MEDS: CHLORHEXIDINE GLUCONATE 15 ML UDC MM SCH ×2 (08:19→16:00)
[2022-08-12] MEDS: clonazePAM 0.5 MG TABLET GT SCH (08:21)
[2022-08-12] MEDS: PANTOPRAZOLE 40 MG/PACK PACK GT SCH (08:29)
[2022-08-12] MEDS: ENOXAPARIN SODIUM 80 MG/0.8 ML DISP.SYRIN SQ SCH (08:36)
[2022-08-12 09:11] LABS: BAND % (MANUAL) 4 % (0.0-5.0); LYMPHOCYTES % (MANUAL) 20 % (16-48); METAMYELOCYTES % 2 % (0-0); MONOCYTES % (MANUAL) 2 % (0-11.0); MYELOCYTES % 2 % (0-0); NEUTROPHILS % (MANUAL) 70 (42-76)
--- NOTE | 2022-08-12 09:57 | NUR ---
RN NOTES PT REMAINS IN BED AWAKE, A/O X1 NONVERBAL. PATIENT IS ON MECHANICAL VENTILATOR WITH ORDERED SETTINGS, TOLERATING WELL. IV ACCESS AT LEFT UPPER ARM ML INTACT, PATENT, AND FLUSHING WELL, NO S/SX OF ACUTE DISTRESS NOTED, WITH GTUBE RUNNING GLUCERNA AT 60 ML/HR, ALL DUE MEDICATIONS GIVEN. PATIENT HAS MONTEJO CATHETER DRAINING TO GRAVITY WITH YELLOW COLORED URINE. KEPT DRY AND CLEAN, ALL SAFETY MEASURES IN PLACE. CALL LIGHT WITH REACH. BED LOCKED AND AT LOWEST POSITION. SIDE RAILS UP X2. WILL CONTINUE TO MONITOR.
[2022-08-12] MEDS ORDERED: ALLO100T25 PO (11:06)
[2022-08-12] MEDS ORDERED: HYDR500C PO (11:06)
[2022-08-12] MEDS ORDERED: LEVO75TA GT (11:06)
[2022-08-12 12:00] VITALS: BP 125/73
[2022-08-12 16:00] VITALS: BP 132/76
--- NOTE | 2022-08-12 16:31 | NUR ---
RN NOTES CALLED [facility] X 4 TIMES TO GIVE REPORT, PER KRISTIN SAUCEDO THEY ARE NOT ACCEPTING THE PATIENT, COUNTY ENGINEER INFORMED.
--- NOTE | 2022-08-12 17:57 | NUR ---
RN NOTES INFORMED BY BAKELITE MOLDER THAT [facility] SAID YES TO TRANSFER THE PATIENT. PER BAKELITE MOLDER JUST GIVE REPORT TO THE EMT. WILL CONTINUE TO MONITOR PATIENT.
--- NOTE | 2022-08-12 18:04 | NUR ---
RN CLOSING NOTES PT REMAINS IN BED AWAKE, A/O X1 NONVERBAL. PATIENT IS ON MECHANICAL VENTILATOR WITH ORDERED SETTINGS, TOLERATING WELL, NO SOB NOTED, NOT IN DISTRESS, NO FACIAL GRIMACING NOTED. PATIENT IS ON TELE MONITOR SHOWING SINUS RHYTHM AT 87. IV ACCESS AT LEFT UPPER ARM ML INTACT, PATENT, AND FLUSHING WELL ON SALINE LOCK. GTUBE RUNNING GLUCERNA AT 60 ML/HR, TOLERATING WELL, NO N/V/D NOTED. PATIENT HAS MONTEJO CATHETER DRAINING TO GRAVITY WITH 600ML YELLOW COLORED URINE.ALL SAFETY MEASURES IN PLACE. CALL LIGHT WITH REACH. BED LOCKED AND AT LOWEST POSITION. SIDE RAILS UP X2. WILL CONTINUE TO MONITOR. Addendum: 08/12/22 at 1859 by GABRIEL CRAFT RN GAVE DISCHARGE REPORT TO EMT. PATIENT EXITED THE HOSPITAL STABLE.
[2022-08-13] MEDS ORDERED: PROSOURCE / PROSTAT (PYXIS) 30 ML UDC GT SCH (09:00)
== END 2022-08-12 19:07 | DRG 130 ==
LOC: ER 09:28 → TRANSITION 12:56 → ICU 13:16 → TELE1 07-22 17:36 → ICU 08-03 20:53 → TELE1 08-09 15:24 → TELE-TD 08-09 20:59 → TELE1 08-10 09:12
PROVIDERS: ADMIT Nurse Practitioner Acute Care; ATTEND Internal Medicine
PROC: 5A1955Z Respiratory Ventilation, Greater than 96 Consecutive Hours (ICD-10-PCS; principal; 2022-07-20)
PROC: 05HD33Z Insertion of Infusion Device into Right Cephalic Vein, Percutaneous Approach (ICD-10-PCS; 2022-07-20)
PROC: 30233N1 Transfusion of Nonautologous Red Blood Cells into Peripheral Vein, Percutaneous Approach (ICD-10-PCS; 2022-07-22)
PROC: 0W993ZZ Drainage of Right Pleural Cavity, Percutaneous Approach (ICD-10-PCS; 2022-08-01)
PROC: 05HF33Z Insertion of Infusion Device into Left Cephalic Vein, Percutaneous Approach (ICD-10-PCS; 2022-08-04)
DX: J95.851 Ventilator associated pneumonia (principal); N17.0 Acute kidney failure with tubular necrosis; R65.21 Severe sepsis with septic shock; A41.9 Sepsis, unspecified organism; G92.8 Other toxic encephalopathy; E43 Unspecified severe protein-calorie malnutrition; J96.21 Acute and chronic respiratory failure with hypoxia; R64 Cachexia; E22.2 Syndrome of inappropriate secretion of antidiuretic hormone; I50.23 Acute on chronic systolic (congestive) heart failure; J15.6 Pneumonia due to other Gram-negative bacteria; L89.159 Pressure ulcer of sacral region, unspecified stage; D68.59 Other primary thrombophilia; R13.0 Aphagia; J18.9 Pneumonia, unspecified organism; Z93.0 Tracheostomy status; Z99.11 Dependence on respirator [ventilator] status; Z86.74 Personal history of sudden cardiac arrest; E86.0 Dehydration; N39.0 Urinary tract infection, site not specified; Z20.822 Contact with and (suspected) exposure to COVID-19; Y84.8 Other medical procedures as the cause of abnormal reaction of the patient, or of later complication, without mention of misadventure at the time of the procedure; Y92.129 Unspecified place in nursing home as the place of occurrence of the external cause; Z93.1 Gastrostomy status; R13.10 Dysphagia, unspecified; Z79.01 Long term (current) use of anticoagulants; Z79.51 Long term (current) use of inhaled steroids; Z79.899 Other long term (current) drug therapy; Z86.718 Personal history of other venous thrombosis and embolism; Z86.711 Personal history of pulmonary embolism; Z74.01 Bed confinement status; Y95 Nosocomial condition; Z87.19 Personal history of other diseases of the digestive system; Z74.09 Other reduced mobility; D63.8 Anemia in other chronic diseases classified elsewhere; E03.9 Hypothyroidism, unspecified; E78.5 Hyperlipidemia, unspecified; E86.1 Hypovolemia; E87.0 Hyperosmolality and hypernatremia; E87.5 Hyperkalemia; E88.09 Other disorders of plasma-protein metabolism, not elsewhere classified; K21.9 Gastro-esophageal reflux disease without esophagitis; L03.115 Cellulitis of right lower limb; L03.116 Cellulitis of left lower limb; J44.0 Chronic obstructive pulmonary disease with (acute) lower respiratory infection; J98.11 Atelectasis; I11.0 Hypertensive heart disease with heart failure; I21.A1 Myocardial infarction type 2; I48.91 Unspecified atrial fibrillation; I69.391 Dysphagia following cerebral infarction; E44.0 Moderate protein-calorie malnutrition; E11.9 Type 2 diabetes mellitus without complications; D53.9 Nutritional anemia, unspecified; D47.1 Chronic myeloproliferative disease; D72.821 Monocytosis (symptomatic); E87.3 Alkalosis; E87.6 Hypokalemia; B96.89 Other specified bacterial agents as the cause of diseases classified elsewhere; Z86.19 Personal history of other infectious and parasitic diseases; Z16.35 Resistance to multiple antimicrobial drugs; J90 Pleural effusion, not elsewhere classified; I82.413 Acute embolism and thrombosis of femoral vein, bilateral
CPT/HCPCS: 31720; 36410; 36415; 36600; 71045-TC; 74018; 80048-TC; 80053-TC; 80061-TC; 80076-TC; 80202-TC; 81001; 82248-TC; 82272-TC; 82533; 82607-TC; 82728-TC; 82784; 82803-TC; 82962-TC; 83540-TC; 83605-TC; 83735-TC; 83880; 84100-TC; 84155; 84165; 84439-TC; 84443-TC; 84478-TC; 84484-TC; 84550-TC; 85025-TC; 85396; 85730-TC; 86334; 86850-TC; 87040-TC; 87070-TC; 87075-TC; 87081-TC; 87086-TC; 87102-TC; 87186-TC; 89051-TC; 93307-TC; 93970-TC; 94003-TC; 94760-TC; 94762-TC; 94799-TC; 99082-TC; A4216; A4623; A6403; A7526; C9113; C9803; G0378; J0692; J1200; J1644; J1650; J1720; J1815; J1940; J2060; J2185; J2270; J2543; J2916; J3370; J3475; J3490; J7030; J7040; J7050; J7060; P9016; P9047